=== PATIENT | female | born 1960 | race African-American/Black ===

== ENCOUNTER 2017-01-07 21:53 | Inpatient (IN) ==
[2017-01-07 23:12] LABS: Bilirubin,Urine Small (Negative); Blood,Urine Small (Negative); Clarity,Urine Cloudy (Clear); Color,Urine Dark Yellow (Yellow); Glucose,Urine (UA) Normal (Normal); Ketones,Urine Trace mg/dL (Negative); Leukocyte Esterase,Urine Large (Negative); Nitrite,Urine Negative (Negative); PH,Urine 5.5 pH Units (5.0-8.0); Protein,Urine Trace mg/dL (Neg-Trace); Specific Gravity,Urine > 1.030 (1.010-1.025); Urobilinogen,Urine Normal (Normal)
[2017-01-07 23:14] LABS: Bacteria,Urine Many per hpf (None-Few); Hyaline Casts,Urine Moderate per lpf (None-Few); RBC,Urine 15-30 per hpf (0-3); Squamous Epithelial Cell,Urine Many per lpf (None-Few); WBC,Urine 30-50 per hpf (0-3)
[2017-01-07 23:17] LABS: Amphetamine Screen,Urine Negative ng/mL (Cutoff=1000); Barbiturate Screen,Urine Negative ng/mL (Cutoff=200); Benzodiazepines Screen,Urine Positive ng/mL (Cutoff=200); Cannabinoid Screen,Urine Negative ng/mL (Cutoff = 50); Cocaine Screen,Urine Negative ng/mL (Cutoff= 300); Opiate Screen,Urine Negative ng/mL (Cutoff=300); Phencyclidine Screen,Urine Negative ng/mL (Cutoff=25)
[2017-01-07 23:58] LABS: Basophils % 0.3 %; Eosinophils % 0.2 %; Hematocrit 41.4 % (35.3-44.9); Hemoglobin 13.5 g/dL (11.5-15.4); Immature Granulocytes % 0.5 % (0-4); Lymphocytes # 4.1 K/mcL (0.6-4.6); Lymphocytes % 34.2 %; Mean Corpuscular HGB Conc 32.6 g/dL (31.6-35.5); Mean Corpuscular Hemoglobin 30.2 pg (28.0-33.3); Mean Corpuscular Volume 92.6 fL (83.0-100.0); Mean Platelet Volume 10.6 fL (9.4-12.4); Monocytes # 0.8 K/mcL (0.0-1.3); Monocytes % 6.9 %; Platelet Count 250 K/mcL (140-400); Red Blood Count 4.47 M/mcL (3.82-4.97); Red Cell Distribution Width 13.4 % (11.5-14.5); Segmented Neutrophils % 57.9 %
[2017-01-08] LABS: BUN/Creatinine Ratio 14 (6-26); Blood Urea Nitrogen 14 mg/dL (7-20); Carbon Dioxide 21 mEq/L (19-29); Chloride 107 mEq/L (98-109); Glucose 108 mg/dL (70-99); Osmolality,Calculated 289 (280-300); Potassium 3.4 mEq/L (3.5-4.5); Sodium 139 mEq/L (136-145); eGFR For African Americans > 60 (> 60); eGFR For Non-African Americans 56 (> 60)
[2017-01-08 00:48] LABS: Acetaminophen < 1.0 mcg/mL (10-30); Ethanol < 10 mg/dL (0-10); Salicylate < 5.0 mg/dL (15-30)
--- NOTE | 2017-01-08 01:27 | Emergency Department Note ---
Disposition Clinical Impression: Chronic schizophrenia, Suicidal ideation Disposition: Admitted As Inpatient Condition: Good Time of Disposition: 07:45 Psych HPI - General Chief Complaint: ED Psychiatric Symptoms Stated Complaint: Suicidal Ideation Time Seen by Provider: 01/07/17 21:56 Source: patient Nursing Notes Reviewed: Yes Vital Signs Reviewed: Yes - History of Present Illness HPI Narrative: 56-year-old female presents from [facility] with reported suicidal ideation. Patient states that she is here because she has had thoughts of hurting herself, stating that she has been having them for a "long time" she does state that she has a plan, she tried to hurt herself before. States that she has not been taking her medications. Pt complaint: suicidal ideation Onset (ago): day(s) Duration: constant History of similar episodes: Yes Improves with: none Worsens with: none Context: not taking psychiatric medications Alleged intoxication: No Associated Psychiatric Symptoms: depression, suicidal ideation Associated symptoms: Reports: denies other symptoms Traumatic symptoms: denies traumatic injury Treatments prior to arrival: other ([facility]) Self harm or harm to others: admits thoughts of self harm, has plan, has acted on plan - Related Data Home Medications Medication Instructions Recorded Confirmed ALPRAZolam [Xanax 1 MG Tablet] 1 mg PO TID 09/05/16 09/05/16 Aspirin [Lo-Dose Aspirin EC] 81 mg PO DAILY 09/05/16 09/05/16 Atorvastatin [Lipitor] 40 mg PO HS 09/05/16 09/05/16 Benzonatate [Tessalon] 200 mg PO TID PRN 09/05/16 09/05/16 Benztropine [Cogentin] 1 mg PO TID PRN 09/05/16 09/05/16 Citalopram [CeleXA] 40 mg PO DAILY 09/05/16 09/05/16 Docusate Sodium [Colace] 100 mg PO BID 09/05/16 09/05/16 Fluticasone Propionate Nasal 2 spray NS DAILY 09/05/16 09/05/16 Furosemide [Lasix] 20 mg PO TID 09/05/16 09/05/16 Ibuprofen [Motrin] 800 mg PO Q8HR PRN 09/05/16 09/05/16 Latanoprost [Xalatan] 1 drop OP HS 09/05/16 09/05/16 Lisinopril [Zestril] 10 mg PO DAILY 09/05/16 09/05/16 Lurasidone [Latuda] 20 mg PO QPM 09/05/16 09/05/16 Polyethylene Glycol 3350 [MiraLAX] 17 gm PO DAILY PRN 09/05/16 09/05/16 RisperiDONE MICROSPHERES 50 mg IM Q2W 09/05/16 09/05/16 [Risperdal Consta] Ropinirole HCl [Requip] 2 mg PO DAILY 09/05/16 09/05/16 SitaGLIPtin [Januvia] 100 mg PO DAILY 09/05/16 09/05/16 Zolpidem [Ambien] 10 mg PO HS 09/05/16 09/05/16 metFORMIN [Glucophage] 1,000 mg PO BIDWM 09/05/16 09/05/16 risperiDONE [RisperDAL] 2 mg PO BID 09/05/16 09/05/16 Previous Rx's Medication Instructions Recorded Benzonatate [Tessalon] 100 mg PO TID #30 capsule 10/21/16 Montelukast [Singulair] 10 mg PO DAILY #20 tablet 10/21/16 Nitrofurantoin (BID) [Macrobid] 100 mg PO BID #10 capsule 10/21/16 Phenazopyridine HCl [Pyridium] 200 mg PO TIDAC #6 tab 10/21/16 Allergies Allergy/AdvReac Type Severity Reaction Status Date / Time No Known Allergies Allergy Verified 09/04/16 23:27 All systems ED: reviewed and negative except as stated. Constitutional: Denies: fever, chills Eyes: Denies: eye pain ENT ED: Denies: ear pain Cardiovascular: Denies: chest pain Respiratory: Denies: dyspnea Gastrointestinal: Denies: abdominal pain Genitourinary: Denies: dysuria Musculoskeletal: Denies: back pain Integumentary: Denies: rash Neurological: Denies: headache Psychiatric: Denies: depression Endocrine: Denies: fatigue Hematological/Lymphatic: Denies: easy bleeding Allergic/Immunologic: Denies: facial swelling Past Medical History - Past Medical History Medical history: Reports: asthma, diabetes, other Psychiatric history: Reports: anxiety, bipolar, depression, prior suicide attempt, schizophrenia, previous psychiatric hospitalization [facility] history: Reports: no [facility] history - Social History Smoking Status: Never smoker Smokeless Tobacco Status: No Alcohol use: Reports: none Drug use: Reports: none Physical Exam - General Limitations: no limitations General appearance: alert, anxious - Head Head exam: normocephalic - Eye Eye exam: Present: EOMI. Absent: conjunctival injection - ENT ENT exam: normal oropharynx, mucous membranes moist - Neck Neck exam: Present: full ROM - Chest Chest inspection: Present: symmetric chest wall rise - Respiratory Respiratory exam: Absent: respiratory distress - Cardiovascular Cardiovascular exam: Present: regular rate - Abdominal Exam Abdominal exam: Present: soft, Non-Tender - Extremities Exam Extremities exam: Present: full ROM, normal capillary refill - Back Exam Back exam: Present: normal inspection, full ROM - Neurological Exam Neurological exam: Present: alert - Expanded Neurological Exam Patient oriented to: Present: person, place. Absent: time (Patient declines to answer my question regarding what day of the week it is) Speech: Present: fluid speech - Psychiatric Psychiatric exam: Present: normal affect, normal mood - Skin Skin exam: Present: warm, dry, intact, normal color. Absent: rash, cyanosis, diaphoresis Course Course Narrative: 56-year-old female presents with reported suicidal ideation. Patient seen and examined. She is alert and oriented to self and location. she states noncompliance with her medications. She mentions a long history of suicidal ideation. She admits to attempting to hurt herself recently, but declines to tell me specifics on that. Nursing reports that the patient had tried to strangle herself with her purse. Workup initiated for medical clearance for psychiatric evaluation. Vital Signs Temperature 98.4 F 01/07/17 22:14 Pulse Rate 97 01/07/17 22:14 Respiratory Rate 15 01/07/17 22:14 Blood Pressure 115/97 01/07/17 22:14 O2 Sat by Pulse Oximetry 97 01/07/17 22:14 Temperature 98.4 F 01/07/17 22:14 Pulse Rate 97 01/07/17 22:14 Respiratory Rate 0 01/08/17 03:44 Blood Pressure 0/0 01/08/17 03:44 O2 Sat by Pulse Oximetry 97 01/07/17 22:14 Oxygen Delivery Oxygen Delivery Room Air Psych - MDM Narrative Medical decision making narrative: Patient was medically cleared, then evaluated by behavioral health staff. Patient will be admitted for inpatient treatment, evaluation, stabilization for psychiatric issues. Patient's vitals stable during her course here. Patient is safe for transfer to inpatient care. - Lab Data Result diagrams: 01/07/17 23:39 01/07/17 23:39 Lab Results 01/07/17 01/07/17 01/07/17 Range/Units 23:00 23:00 23:00 WBC (4.3-11.1) K/mcL RBC (3.82-4.97) M/mcL Hgb (11.5-15.4) g/dL Hct (35.3-44.9) % MCV (83.0-100.0) fL MCH (28.0-33.3) pg MCHC (31.6-35.5) g/dL RDW (11.5-14.5) % Plt Count (140-400) K/mcL MPV (9.4-12.4) fL Immature Gran % (0-4) % Seg Neutrophils % % Lymphocytes % % Monocytes % % Eosinophils % % Basophils % % Neutrophils # (1.6-8.9) K/mcL Lymphocytes # (0.6-4.6) K/mcL Monocytes # (0.0-1.3) K/mcL Eosinophils # (0.0-0.6) K/mcL Basophils # (0.0-0.2) K/mcL Sodium (136-145) mEq/L Potassium (3.5-4.5) mEq/L Chloride (98-109) mEq/L Carbon Dioxide (19-29) mEq/L BUN (7-20) mg/dL Creatinine (0.57-1.11) mg/dL Est GFR ( Amer) (> 60) Est GFR (Non-Af Amer) (> 60) BUN/Creatinine Ratio (6-26) Glucose (70-99) mg/dL Calculated Osmolality (280-300) Calcium (8.6-10.8) mg/dL Urine Color Dark Yellow (Yellow) Urine Clarity Cloudy A (Clear) Urine pH 5.5 (5.0-8.0) pH Units Ur Specific [place] > 1.030 H (1.010-1.025) Urine Protein Trace (Neg-Trace) mg/dL Urine Glucose (UA) Normal (Normal) mg/dL Urine Ketones Trace H (Negative) mg/dL Urine Blood Small H (Negative) Urine Nitrite Negative (Negative) Urine Bilirubin Small H (Negative) Urine Urobilinogen Normal (Normal) mg/dL Ur Leukocyte Esterase Large H (Negative) Urine Microscopic RBC 15-30 H (0-3) per hpf Urine Microscopic WBC 30-50 H (0-3) per hpf Ur Squamous Epith Cells Many H (None-Few) per lpf Urine Bacteria Many H (None-Few) per hpf Hyaline Casts Moderate H (None-Few) per lpf Urine Test Negative (Negative) Salicylates (15-30) mg/dL Urine Opiates Screen Negative (Nrfdga=425) ng/mL Acetaminophen (10-30) mcg/mL Ur Barbiturates Screen Negative (Rlomey=246) ng/mL Ur Phencyclidine Scrn Negative (Cutoff=25) ng/mL Ur Amphetamines Screen Negative (Zzwavn=7127) ng/mL U Benzodiazepines Scrn Positive H (Tlrrvo=765) ng/mL Urine Cocaine Screen Negative (Cutoff= 300) ng/mL U Marijuana (THC) Screen Negative (Cutoff = 50) ng/mL Ethyl Alcohol (0-10) mg/dL 01/07/17 01/07/17 Range/Units 23:39 23:39 WBC 12.1 H (4.3-11.1) K/mcL RBC 4.47 (3.82-4.97) M/mcL Hgb 13.5 (11.5-15.4) g/dL Hct 41.4 (35.3-44.9) % MCV 92.6 (83.0-100.0) fL MCH 30.2 (28.0-33.3) pg MCHC 32.6 (31.6-35.5) g/dL RDW 13.4 (11.5-14.5) % Plt Count 250 (140-400) K/mcL MPV 10.6 (9.4-12.4) fL Immature Gran % 0.5 (0-4) % Seg Neutrophils % 57.9 % Lymphocytes % 34.2 % Monocytes % 6.9 % Eosinophils % 0.2 % Basophils % 0.3 % Neutrophils # 7.0 (1.6-8.9) K/mcL Lymphocytes # 4.1 (0.6-4.6) K/mcL Monocytes # 0.8 (0.0-1.3) K/mcL Eosinophils # 0.0 (0.0-0.6) K/mcL Basophils # 0.0 (0.0-0.2) K/mcL Sodium 139 (136-145) mEq/L Potassium 3.4 L (3.5-4.5) mEq/L Chloride 107 (98-109) mEq/L Carbon Dioxide 21 (19-29) mEq/L BUN 14 (7-20) mg/dL Creatinine 1.02 (0.57-1.11) mg/dL Est GFR ( Amer) > 60 (> 60) Est GFR (Non-Af Amer) 56 L (> 60) BUN/Creatinine Ratio 14 (6-26) Glucose 108 H (70-99) mg/dL Calculated Osmolality 289 (280-300) Calcium 9.0 (8.6-10.8) mg/dL Urine Color (Yellow) Urine Clarity (Clear) Urine pH (5.0-8.0) pH Units Ur Specific [place] (1.010-1.025) Urine Protein (Neg-Trace) mg/dL Urine Glucose (UA) (Normal) mg/dL Urine Ketones (Negative) mg/dL Urine Blood (Negative) Urine Nitrite (Negative) Urine Bilirubin (Negative) Urine Urobilinogen (Normal) mg/dL Ur Leukocyte Esterase (Negative) Urine Microscopic RBC (0-3) per hpf Urine Microscopic WBC (0-3) per hpf Ur Squamous Epith Cells (None-Few) per lpf Urine Bacteria (None-Few) per hpf Hyaline Casts (None-Few) per lpf Urine Test (Negative) Salicylates < 5.0 L (15-30) mg/dL Urine Opiates Screen (Gxczjg=939) ng/mL Acetaminophen < 1.0 L (10-30) mcg/mL Ur Barbiturates Screen (Lmmgcd=675) ng/mL Ur Phencyclidine Scrn (Cutoff=25) ng/mL Ur Amphetamines Screen (Vfvemt=4256) ng/mL U Benzodiazepines Scrn (Iajpuo=976) ng/mL Urine Cocaine Screen (Cutoff= 300) ng/mL U Marijuana (THC) Screen (Cutoff = 50) ng/mL Ethyl Alcohol < 10 (0-10) mg/dL Psychiatric Medical Clearance - Medical Clearance Checklist Medical History: No Social History Section defined Current Vitals: Last Vital Signs Temp 98.4 F 01/07/17 22:14 Pulse 97 01/07/17 22:14 Resp 0 01/08/17 03:44 BP 0/0 01/08/17 03:44 Pulse Ox 97 01/07/17 22:14 Psychiatric Lab Panel: Drug Levels and Toxicity 01/07/17 01/07/17 23:00 23:39 Urine Opiates Screen Negative Acetaminophen < 1.0 L Ur Barbiturates Screen Negative Ur Phencyclidine Scrn Negative Ur Amphetamines Screen Negative U Benzodiazepines Scrn Positive H Urine Cocaine Screen Negative U Marijuana (THC) Screen Negative Ethyl Alcohol < 10 Abnormal Labs: Abnormal lab results WBC 12.1 K/mcL (4.3-11.1) H 01/07/17 23:39 Potassium 3.4 mEq/L (3.5-4.5) L 01/07/17 23:39 Est GFR (Non-Af Amer) 56 (> 60) L 01/07/17 23:39 Glucose 108 mg/dL (70-99) H 01/07/17 23:39 POC Glucose 129 (58-89) H 01/08/17 03:54 Urine Clarity Cloudy (Clear) A 01/07/17 23:00 Ur Specific [place] > 1.030 (1.010-1.025) H 01/07/17 23:00 Urine Ketones Trace mg/dL (Negative) H 01/07/17 23:00 Urine Blood Small (Negative) H 01/07/17 23:00 Urine Bilirubin Small (Negative) H 01/07/17 23:00 Ur Leukocyte Esterase Large (Negative) H 01/07/17 23:00 Urine Microscopic RBC 15-30 per hpf (0-3) H 01/07/17 23:00 Urine Microscopic WBC 30-50 per hpf (0-3) H 01/07/17 23:00 Ur Squamous Epith Cells Many per lpf (None-Few) H 01/07/17 23:00 Urine Bacteria Many per hpf (None-Few) H 01/07/17 23:00 Hyaline Casts Moderate per lpf (None-Few) H 01/07/17 23:00 Salicylates < 5.0 mg/dL (15-30) L 01/07/17 23:39 Acetaminophen < 1.0 mcg/mL (10-30) L 01/07/17 23:39 U Benzodiazepines Scrn Positive ng/mL (Hqnwhh=077) H 01/07/17 23:00 Statement of Medical Clearance: I have evaluated the patient, reviewed diagnostic information, and certify that the patient's medical condition is sufficiently stable that transfer to the psychiatric unit does not pose a significant risk of deterioration.
[2017-01-08] MEDS ORDERED: hydrOXYzine pamoate 25 MG CAPSULE PO PRN (04:32)
[2017-01-08] MEDS ORDERED: Mag Hydrox/Al Hydrox/Simeth 30 ML UDC PO PRN (04:32)
[2017-01-08] MEDS ORDERED: Haloperidol Lactate 5 MG/ML VIAL IM PRN (04:32)
[2017-01-08] MEDS ORDERED: MOM Conc 10 ML UD.LIQ PO PRN (04:32)
[2017-01-08] MEDS ORDERED: *HR* LORazepam 2 MG/ML VIAL IM PRN (04:32)
[2017-01-08] MEDS ORDERED: Acetaminophen 325 MG TABLET PO PRN (04:32)
[2017-01-08] MEDS ORDERED: *HR* LORazepam 1 MG TABLET PO PRN (04:32)
--- NOTE | 2017-01-08 10:21 | Psychiatry History & Physical ---
Date of Encounter: 01/08/17 Time of Encounter: 10:00 History of Present Illness Patient Stated Chief Complaint: Suicidal Medicare Admission Attestation: For traditional Medicare patients the provided hospital inpatient services are reasonable and necessary and in the case of services not specified as inpatient -only under 42 CFR 419.22 (n), that they are appropriately provided as inpatient services in accordance 42 CFR 412.3. For Critical Access Hospital the patient may reasonably be expected to be discharged or transferred to a hospital within 96 hours after admission to the Critical Access Hospital. Admitted From: Emergency Dept History of Present Illness: Ms. Cano is a 56 year old female admitted from the emergency department for suicidal ideation and noncompliance with medication. Patient had long history of treatment for bipolar and schizoaffective disorder and was followed at [facility]. Patient did not take her medication for the last couple of months, she was suspicious and paranoid, she was depressed and had thoughts of suicide but she really did not explain her plan. Patient had previously attempted hospitalization and her tox screen in the ED was positive for benzodiazepine. Past Med Surg Social Fam HX - Past Medical History Medical history: asthma, diabetes, other - Past Psychiatric History Psychiatric history: Reports: bipolar, schizophrenia, previous psychiatric hospitalization - Social History Smoking Status: Never smoker Smokeless Tobacco Status: No Alcohol use: none Drug use: none - Family History Mother Hx Family Medical Disorders: No Medications & Allergies Aspirin [Lo-Dose Aspirin EC] 81 mg PO DAILY 09/05/16 [History] Atorvastatin [Lipitor] 40 mg PO HS 09/05/16 [History] Benztropine [Cogentin] 1 mg PO TID PRN 09/05/16 [History] Citalopram [CeleXA] 10 mg PO DAILY 09/05/16 [History] Docusate Sodium [Colace] 100 mg PO BID 09/05/16 [History] Fluticasone Propionate Nasal [Flonase] 2 spray NS DAILY 09/05/16 [History] Furosemide [Lasix] 20 mg PO TID 09/05/16 [History] Ibuprofen [Motrin] 800 mg PO Q8HR PRN 09/05/16 [History] Latanoprost [Xalatan] 1 drop OP HS 09/05/16 [History] Lisinopril [Zestril] 10 mg PO DAILY 09/05/16 [History] Lurasidone [Latuda] 20 mg PO QPM 09/05/16 [History] Polyethylene Glycol 3350 [MiraLAX] 17 gm PO DAILY PRN 09/05/16 [History] RisperiDONE MICROSPHERES [Risperdal Consta] 50 mg IM Q2W 09/05/16 [History] Ropinirole HCl [Requip] 2 mg PO DAILY 09/05/16 [History] SitaGLIPtin [Januvia] 100 mg PO DAILY 09/05/16 [History] Zolpidem [Ambien] 10 mg PO HS 09/05/16 [History] metFORMIN [Glucophage] 1,000 mg PO BIDWM 09/05/16 [History] risperiDONE [RisperDAL] 2 mg PO BID 09/05/16 [History] Montelukast [Singulair] 10 mg PO DAILY #20 tablet 10/21/16 [Rx] Ondansetron HCl [Zofran] 8 mg PO DAILY PRN 01/08/17 [History] clonazePAM [Klonopin] 1 mg PO TID 01/08/17 [History] Allergies No Known Allergies Allergy (Verified 09/04/16 23:27) Review of Systems Psychiatric: Reports: depression, suicidal ideation, irritability, mood swings Mental Status Exam Patient orientation: Yes Person, Yes Time, Yes Place Level of alertness: Alert Patient appearance: Appropriate, Unkempt, Disheveled, Bizarre, Obese Behavior: calm, cooperative, anxious, guarded, suspicious, distractible Psychomotor activity: Normal Eye contact: Fleeting Contact Mood description: Depressed, Anxious, Labile, Irritable Affect description: labile, constricted Speech pattern: Slowed, Disorganized, Limited Speech volume: Normal Thought process: Circumstantial, Flight of Ideas, Thought Blocking, Disorganized Thought content: Yes Suicidal ideation, No Homicidal ideation, No Overt delusions Perceptual disturbances: No Auditory hallucinations, No Visual hallucinations Attention span: Capable of Focused Attention Memory description: Grossly Intact Patient reliability: Reliable Historian Intelligence estimate: Average Judgment: Limited Insight: Partial Results - Vital Signs Vital signs: Temp Pulse Resp BP Pulse Ox 98.8 F 96 18 122/71 97 01/08/17 09:00 01/08/17 09:00 01/08/17 09:00 01/08/17 09:00 01/07/17 22:14 - Labs Labs: Laboratory Last Values WBC 12.1 K/mcL (4.3-11.1) H 01/07/17 23:39 RBC 4.47 M/mcL (3.82-4.97) 01/07/17 23:39 Hgb 13.5 g/dL (11.5-15.4) 01/07/17 23:39 Hct 41.4 % (35.3-44.9) 01/07/17 23:39 MCV 92.6 fL (83.0-100.0) 01/07/17 23:39 MCH 30.2 pg (28.0-33.3) 01/07/17 23:39 MCHC 32.6 g/dL (31.6-35.5) 01/07/17 23:39 RDW 13.4 % (11.5-14.5) 01/07/17 23:39 Plt Count 250 K/mcL (140-400) 01/07/17 23:39 MPV 10.6 fL (9.4-12.4) 01/07/17 23:39 Immature Gran % 0.5 % (0-4) 01/07/17 23:39 Seg Neutrophils % 57.9 % 01/07/17 23:39 Lymphocytes % 34.2 % 01/07/17 23:39 Monocytes % 6.9 % 01/07/17 23:39 Eosinophils % 0.2 % 01/07/17 23:39 Basophils % 0.3 % 01/07/17 23:39 Neutrophils # 7.0 K/mcL (1.6-8.9) 01/07/17 23:39 Lymphocytes # 4.1 K/mcL (0.6-4.6) 01/07/17 23:39 Monocytes # 0.8 K/mcL (0.0-1.3) 01/07/17 23:39 Eosinophils # 0.0 K/mcL (0.0-0.6) 01/07/17 23:39 Basophils # 0.0 K/mcL (0.0-0.2) 01/07/17 23:39 Sodium 139 mEq/L (136-145) 01/07/17 23:39 Potassium 3.4 mEq/L (3.5-4.5) L 01/07/17 23:39 Chloride 107 mEq/L (98-109) 01/07/17 23:39 Carbon Dioxide 21 mEq/L (19-29) 01/07/17 23:39 BUN 14 mg/dL (7-20) 01/07/17 23:39 Creatinine 1.02 mg/dL (0.57-1.11) 01/07/17 23:39 Est GFR ( Amer) > 60 (> 60) 01/07/17 23:39 Est GFR (Non-Af Amer) 56 (> 60) L 01/07/17 23:39 BUN/Creatinine Ratio 14 (6-26) 01/07/17 23:39 Glucose 108 mg/dL (70-99) H 01/07/17 23:39 POC Glucose 129 (58-89) H 01/08/17 03:54 Calculated Osmolality 289 (280-300) 01/07/17 23:39 Calcium 9.0 mg/dL (8.6-10.8) 01/07/17 23:39 Urine Color Dark Yellow (Yellow) 01/07/17 23:00 Urine Clarity Cloudy (Clear) A 01/07/17 23:00 Urine pH 5.5 pH Units (5.0-8.0) 01/07/17 23:00 Ur Specific [place] > 1.030 (1.010-1.025) H 01/07/17 23:00 Urine Protein Trace mg/dL (Neg-Trace) 01/07/17 23:00 Urine Glucose (UA) Normal mg/dL (Normal) 01/07/17 23:00 Urine Ketones Trace mg/dL (Negative) H 01/07/17 23:00 Urine Blood Small (Negative) H 01/07/17 23:00 Urine Nitrite Negative (Negative) 01/07/17 23:00 Urine Bilirubin Small (Negative) H 01/07/17 23:00 Urine Urobilinogen Normal mg/dL (Normal) 01/07/17 23:00 Ur Leukocyte Esterase Large (Negative) H 01/07/17 23:00 Urine Microscopic RBC 15-30 per hpf (0-3) H 01/07/17 23:00 Urine Microscopic WBC 30-50 per hpf (0-3) H 01/07/17 23:00 Ur Squamous Epith Cells Many per lpf (None-Few) H 01/07/17 23:00 Urine Bacteria Many per hpf (None-Few) H 01/07/17 23:00 Hyaline Casts Moderate per lpf (None-Few) H 01/07/17 23:00 Urine Test Negative (Negative) 01/07/17 23:00 Salicylates < 5.0 mg/dL (15-30) L 01/07/17 23:39 Urine Opiates Screen Negative ng/mL (Utuwhe=176) 01/07/17 23:00 Acetaminophen < 1.0 mcg/mL (10-30) L 01/07/17 23:39 Ur Barbiturates Screen Negative ng/mL (Wpqrpg=763) 01/07/17 23:00 Ur Phencyclidine Scrn Negative ng/mL (Cutoff=25) 01/07/17 23:00 Ur Amphetamines Screen Negative ng/mL (Edxqek=2657) 01/07/17 23:00 U Benzodiazepines Scrn Positive ng/mL (Qlypcj=765) H 01/07/17 23:00 Urine Cocaine Screen Negative ng/mL (Cutoff= 300) 01/07/17 23:00 U Marijuana (THC) Screen Negative ng/mL (Cutoff = 50) 01/07/17 23:00 Ethyl Alcohol < 10 mg/dL (0-10) 01/07/17 23:39 Assessment and Plan (1) Chronic schizophrenia Current visit: Yes Status: Acute Plan: Admit inpatient for safety and stabilization, Close observation, Suicide Precautions per unit protocol, Encourage participation in unit milieu, Group Therapy, Monitor sleep, Monitor appetite Additional Plan: Will review patient medication and restart them and request records from [facility]. Risks, benefits, side effects, alternatives discussed w/pt: Yes Patient agreeable to treatment: Yes
[2017-01-08] MEDS: *HR* SitaGLIPtin 100 MG TABLET PO SCH (14:31)
[2017-01-08] MEDS: Furosemide 20 MG TABLET PO SCH (14:31)
[2017-01-08] MEDS: Aspirin Enteric Coated 81 MG Tablet PO SCH (14:31)
[2017-01-08] MEDS: *HR* Metformin 500 MG TABLET PO SCH (17:24)
[2017-01-08] MEDS: traZODone 50 MG TABLET PO PRN (21:34)
[2017-01-08] MEDS: rOPINIRole 1 MG TABLET PO SCH (21:34)
[2017-01-08] MEDS: Latanoprost 2.5 ML BOTTLE BOTH EYES SCH (21:57)
[2017-01-09] MEDS: Furosemide 20 MG TABLET PO SCH (09:47)
[2017-01-09] MEDS: Aspirin Enteric Coated 81 MG Tablet PO SCH (09:47)
[2017-01-09] MEDS: *HR* Metformin 500 MG TABLET PO SCH ×2 (09:47→18:01)
[2017-01-09] MEDS: *HR* SitaGLIPtin 100 MG TABLET PO SCH ×2 (09:50→10:16)
--- NOTE | 2017-01-09 15:45 | Psychiatry Progress Note ---
Date of Encounter: 01/09/17 Time of Encounter: 15:30 Subjective Interval history: Patient is here for follow-up. She is reported more cooperative and compliant with medication, she is less delusional but continued to have disorganized speech and paranoid statements. We added inVega 6 mg oral tablets daily and she is responsive and responding positively. Medical consult was requested to address complaint off dysuria possible UTI. Review of Systems Psychiatric: Reports: depression, suicidal ideation, irritability, mood swings Objective: Exam Patient orientation: Yes Person, Yes Time, Yes Place Level of alertness: Alert Patient appearance: Appropriate, Well Groomed, Obese Behavior: calm, cooperative, suspicious Psychomotor activity: Normal Eye contact: Maintains Eye Contact Mood description: Anxious, Labile Affect description: congruent with mood, labile Speech pattern: Delayed, Disorganized Speech volume: Normal Thought process: Circumstantial, Flight of Ideas, Thought Blocking Thought content: No Suicidal ideation, No Homicidal ideation, No Overt delusions , Yes Paranoid delusion, Yes Somatic delusion Perceptual disturbances: No Auditory hallucinations, No Visual hallucinations Judgment: Fair Insight: Partial Results - Vital Signs Vital Signs: Temp Pulse Resp BP Pulse Ox 97.9 F 88 18 133/85 97 01/09/17 09:00 01/09/17 09:00 01/09/17 09:00 01/09/17 09:00 01/07/17 22:14 - Labs Labs: Laboratory Results - last 24 hr 01/08/17 16:46 POC Glucose 136 H Assessment and Plan (1) Chronic schizophrenia Current visit: Yes Status: Acute Plan: Continue hospitalization, Close observation, Suicide Precautions per unit protocol, Encourage participation in unit milieu, Group Therapy, Monitor sleep, Monitor appetite Risks, benefits, side effects, alternatives discussed w/pt: Yes Patient agreeable to treatment: Yes Consult Discharge Plan - Plan Referrals: [facility] [Outside] - 02/02/17 6:00 pm (You are returning into respite at [facility] on discharge from the hospital. While there you will be seen daily by the clinic counselors and telehealth case manager, sola Mccann, your embedded case manager. You will also see Dr. casas on 02/02/2017 at 6:00pm.)
--- NOTE | 2017-01-09 16:36 | Internal Medicine Consult Note ---
Date of Encounter: 01/09/17 Time of Encounter: 16:33 - Assessment and Plan (1) UTI (urinary tract infection) Current Visit: Yes Status: Acute Assessment and plan: *Ciprofloxacin oral 500 mg twice a day Send urine culture May change antibiotic therapy depending on culture results/sensitivity Thank you for allowing me to participate in the care of this patient please call with any questions Time spent on this consult 40 minutes Qualifiers: Urinary tract infection type: acute cystitis Hematuria presence: with hematuria Qualified Code(s): N30.01 - Acute cystitis with hematuria (2) Diarrhea Current Visit: Yes Status: Acute Assessment and plan: Unclear etiology Possible acute gastroenteritis viral versus bacterial Send a stool cultures, C. difficile (may need to start Flagyl. Positive for C. difficile) Send the GI panel Qualifiers: Diarrhea type: unspecified type Qualified Code(s): R19.7 - Diarrhea, unspecified (3) Hypokalemia Current Visit: Yes Status: Acute Assessment and plan: Replete as needed and recheck in the morning (4) Leukocytosis Current Visit: Yes Status: Acute Qualifiers: Leukocytosis type: unspecified Qualified Code(s): D72.829 - Elevated white blood cell count, unspecified (5) Diabetes Current Visit: Yes Status: Acute Assessment and plan: Continue metformin, Januvia Qualifiers: Diabetes mellitus type: type 2 Diabetes mellitus complication status: without complication 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 Cano is a 56 year old female with a past medical history of schizoaffective disorder, bipolar disorder, asthma, diabetes type 2, hyperlipidemia, hypertension who was admitted to the psychiatry unit for suicidal ideation and noncompliance with her medications. The patient has been complaining of dysuria and diarrhea for about a week. Upon admission, a urinalysis showed 15-30 red blood cells, 30-50 white blood cells and many bacteria. White blood cell count is 12.1 potassium 3.4 urine tox screen was positive for benzodiazepines. Patient denies any back pain but has been complaining of watery diarrhea on and off. Since yesterday she has had for episodes of loose stools. Continues to have dysuria. Denies any fevers but has been complaining of chills. Past Med Surg Social Fam HX - Past Medical History Medical history: asthma, diabetes (Not insulin-dependent), hyperlipidemia, hypertension, other Psychiatric history: bipolar, schizophrenia, previous psychiatric hospitalization (Schizoaffective disorder) - Past Surgical History Surgical History: cholecystectomy, herniorrhaphy, other (Echocardiogram showed an ejection fraction of 60% on 02/21/2016) - Social History Smoking Status: Never smoker Smokeless Tobacco Status: No Alcohol use: none Drug use: none - Family History Mother Hx Family Medical Disorders: No - Additional Family History Additional family history: Father mother and siblings with diabetes Review of systems: Continues to have diarrhea without abdominal pain, dysuria. Other systems out of the 10 reviewed were negative Internal Medicine - CN: Meds Aspirin [Lo-Dose Aspirin EC] 81 mg PO DAILY 09/05/16 [History] Atorvastatin [Lipitor] 40 mg PO HS 09/05/16 [History] Citalopram [CeleXA] 10 mg PO DAILY 09/05/16 [History] Docusate Sodium [Colace] 100 mg PO DAILY PRN 09/05/16 [History] Furosemide [Lasix] 20 mg PO DAILY 09/05/16 [History] Latanoprost [Xalatan] 1 drop BOTH EYES HS 09/05/16 [History] Lisinopril [Zestril] 10 mg PO DAILY 09/05/16 [History] Ropinirole HCl [Requip] 2 mg PO HS 09/05/16 [History] SitaGLIPtin [Januvia] 100 mg PO DAILY 09/05/16 [History] metFORMIN [Glucophage] 1,000 mg PO BIDWM 09/05/16 [History] Invega Sustenna 156 mg IM Q4W 01/08/17 [History] Allergies No Known Allergies Allergy (Verified 09/04/16 23:27) Internal Medicine - CN: Exam - Constitutional Vitals: Temp Pulse Resp BP Pulse Ox 97.9 F 88 18 133/85 97 01/09/17 09:00 01/09/17 09:00 01/09/17 09:00 01/09/17 09:00 01/07/17 22:14 General appearance IM: Present: A&O X 3, obese - Expanded Head Exam Head exam expanded IM: Absent: contusion, general tenderness - Eye Eye exam: Present: EOMI, normal appearance. Absent: nystagmus Pupils: Present: normal accommodation, PERRL. Absent: irregular, miosis - ENT ENT exam: Present: mucous membranes moist, normal exam - Neck Neck exam general surgery: Present: full ROM, normal inspection. Absent: lymphadenopathy - Respiratory Respiratory exam: Present: decreased breath sounds. Absent: accessory muscle use, chest wall tenderness, wheezes, tachypnea - Cardiovascular Cardiovascular exam IM: Present: +S1, +S2. Absent: bradycardia, irregular rhythm, systolic murmur, tachycardia - GI/Abdominal GI/Abdominal exam IM: Present: distended, soft. Absent: guarding, hernia, hepatomegaly, tenderness, no peritoneal signs - Expanded Exam Female exam: Present: deferred - Extremities Exam Extremities exam IM: Present: full ROM, normal inspection. Absent: calf tenderness, joint swelling - Neurological Exam Neurological exam: Present: CN II-XII intact, normal gait, reflexes normal, no focal deficits. Absent: abnormal gait - Psychiatric Psychiatric exam: Present: depressed - Skin Skin exam IM: Present: normal color. Absent: excoriation Internal Medicine - CN: Reslt - Labs CBC & Chem 7: 01/07/17 23:39 01/07/17 23:39 Consult Discharge Plan - Plan Referrals: [facility] [Outside] - 02/02/17 6:00 pm (You are returning into respite at [facility] on discharge from the hospital. While there you will be seen daily by the clinic counselors and lining caser, sola Mccann, your lining caser. You will also see Dr. casas on 02/02/2017 at 6:00pm.)
[2017-01-09] MEDS: traZODone 50 MG TABLET PO PRN (20:47)
[2017-01-09] MEDS: rOPINIRole 1 MG TABLET PO SCH (20:47)
[2017-01-09] MEDS: Latanoprost 2.5 ML BOTTLE BOTH EYES SCH (20:49)
[2017-01-10 05:51] LABS: Hematocrit 40.7 % (35.3-44.9); Hemoglobin 13.2 g/dL (11.5-15.4); Mean Corpuscular HGB Conc 32.4 g/dL (31.6-35.5); Mean Corpuscular Hemoglobin 29.5 pg (28.0-33.3); Mean Corpuscular Volume 91.1 fL (83.0-100.0); Mean Platelet Volume 10.2 fL (9.4-12.4); Platelet Count 238 K/mcL (140-400); Red Blood Count 4.47 M/mcL (3.82-4.97); Red Cell Distribution Width 13.5 % (11.5-14.5)
[2017-01-10 06:02] LABS: BUN/Creatinine Ratio 8 (6-26); Blood Urea Nitrogen 7 mg/dL (7-20); Calcium 8.9 mg/dL (8.6-10.8); Carbon Dioxide 24 mEq/L (19-29); Chloride 106 mEq/L (98-109); Glucose 121 mg/dL (70-99); Osmolality,Calculated 287 (280-300); Potassium 3.4 mEq/L (3.5-4.5); Sodium 139 mEq/L (136-145); eGFR For African Americans > 60 (> 60); eGFR For Non-African Americans > 60 (> 60)
[2017-01-10] MEDS: *HR* Metformin 500 MG TABLET PO SCH (08:44)
[2017-01-10] MEDS: *HR* SitaGLIPtin 100 MG TABLET PO SCH (08:44)
[2017-01-10] MEDS: Aspirin Enteric Coated 81 MG Tablet PO SCH (08:45)
[2017-01-10] MEDS: Furosemide 20 MG TABLET PO SCH (08:45)
[2017-01-10] MEDS: Insulin LISPRO 300 UNITS/3 ML VIAL SQ SCH ×2 (11:36→17:31)
--- NOTE | 2017-01-10 12:35 | Internal Med Progress Note ---
Date of Encounter: 01/10/17 Time of Encounter: 12:33 - Assessment and plan (1) Suicidal ideation Current Visit: Yes Status: Acute Assessment and plan: Patient is being managed in psych floor. (2) UTI (urinary tract infection) Current Visit: Yes Status: Acute Assessment and plan: Ciprofloxacin Qualifiers: Urinary tract infection type: acute cystitis Hematuria presence: with hematuria Qualified Code(s): N30.01 - Acute cystitis with hematuria (3) Diabetes Current Visit: Yes Status: Acute Assessment and plan: I would hold metformin for now to see if diarrhea improves. 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 Stool studies will be checked. Hold metformin and check response Qualifiers: Diarrhea type: unspecified type Qualified Code(s): R19.7 - Diarrhea, unspecified - Subjective Interval history: Patient seen and examined. Has chronic diarrhea for the past couple of months. No blood or mucus in stools. No abdominal pain. No fevers chills. She is on metformin for 20 years no increase in dose. No nausea or vomiting. - Constitutional Vitals: Temp Pulse Resp BP Pulse Ox 98.5 F 101 18 130/85 97 01/10/17 08:39 01/10/17 08:39 01/10/17 08:39 01/10/17 08:39 01/07/17 22:14 General appearance: Present: A&O X 3, obese Exam: Gen.: patient is alert oriented times 3 not in distress. Cardiac: normal S1 S2 no additional sounds or murmurs chest: fair air entry. no active wheezing. No crackles or bronchial breathing. abdomen: soft nontender nondistended normal bowel sounds neuro: no focal deficit Internal Medicine: Result - Labs CBC & Chem 7: 01/10/17 05:41 01/10/17 05:41 Labs: Short CBC 01/10/17 Range/Units 05:41 WBC 9.2 (4.3-11.1) K/mcL Hgb 13.2 (11.5-15.4) g/dL Hct 40.7 (35.3-44.9) % Plt Count 238 (140-400) K/mcL BMP 01/10/17 05:41 Sodium 139 Potassium 3.4 L Chloride 106 Carbon Dioxide 24 BUN 7 Creatinine 0.85 Glucose 121 H Calcium 8.9 - VTE Reasons for not Prescribing Prophylaxis: Treatment not Indicated - Low risk for VTE Consult Discharge Plan - Plan Referrals: [facility] [Outside] - 02/02/17 6:00 pm (You are returning into respite at [facility] on discharge from the hospital. While there you will be seen daily by the clinic counselors and nurse outreach case manager, sola Mccann, your transplant case manager. You will also see Dr. casas on 02/02/2017 at 6:00pm.)
--- NOTE | 2017-01-10 14:38 | Psychiatry Progress Note ---
Date of Encounter: 01/10/17 Time of Encounter: 10:00 Subjective Interval history: Patient is seen today for follow-up of her chronic schizophrenia. She denies side effects of the Invega. She reports she is sleeping better. She reports that she is not hearing voices as much. Patient's speech is slowed but she is able to verbalize needs and question this provider about discharge plans. However, she remains withdrawn to her room and interacts only minimally with peers and staff. She denies suicidal ideations. Her thought process is concrete and occasionally disorganized. Review of Systems Psychiatric: Reports: depression, suicidal ideation, auditory hallucinations, irritability, mood swings Objective: Exam Patient orientation: Yes Person, No Time, Yes Place, Yes Circumstance Level of alertness: Alert Patient appearance: Unkempt Behavior: distractible, withdrawn Psychomotor activity: Slowed Eye contact: Fleeting Contact Mood description: Euthymic/stable Affect description: flat Speech pattern: Slowed Thought process: Thought Blocking, Disorganized Thought content: No Suicidal ideation, No Homicidal ideation Perceptual disturbances: Yes Reacting to internal stimuli, Yes Auditory hallucinations Judgment: Limited Insight: Minimal Results - Vital Signs Vital Signs: Temp Pulse Resp BP Pulse Ox 98.5 F 101 18 130/85 97 01/10/17 08:39 01/10/17 08:39 01/10/17 08:39 01/10/17 08:39 01/07/17 22:14 - Labs Labs: Laboratory Results - last 24 hr 01/09/17 01/10/17 01/10/17 17:53 05:41 05:41 WBC 9.2 RBC 4.47 Hgb 13.2 Hct 40.7 MCV 91.1 MCH 29.5 MCHC 32.4 RDW 13.5 Plt Count 238 MPV 10.2 Sodium 139 Potassium 3.4 L Chloride 106 Carbon Dioxide 24 BUN 7 Creatinine 0.85 Est GFR ( Amer) > 60 Est GFR (Non-Af Amer) > 60 BUN/Creatinine Ratio 8 Glucose 121 H POC Glucose 176 H Calculated Osmolality 287 Calcium 8.9 01/10/17 01/10/17 07:18 11:20 WBC RBC Hgb Hct MCV MCH MCHC RDW Plt Count MPV Sodium Potassium Chloride Carbon Dioxide BUN Creatinine Est GFR ( Amer) Est GFR (Non-Af Amer) BUN/Creatinine Ratio Glucose POC Glucose 128 H 91 H Calculated Osmolality Calcium Assessment and Plan (1) Chronic schizophrenia Current visit: Yes Status: Acute Plan: Continue hospitalization, Close observation, Suicide Precautions per unit protocol, Encourage participation in unit milieu, Group Therapy, Monitor sleep, Monitor appetite Additional Plan: Patient is improving slowly on current medications. We will monitor overnight and make medication adjustments tomorrow. Encourage group attendance and participation in unit activities. Monitor for reaction to internal stimuli.. Risks, benefits, side effects, alternatives discussed w/pt: Yes Patient agreeable to treatment: Yes (2) UTI (urinary tract infection) Current visit: Yes Status: Acute Additional Plan: Appreciate internal medicine input. Continue Cipro and monitor improvement. Qualifiers: Urinary tract infection type: acute cystitis Hematuria presence: with hematuria Qualified Code(s): N30.01 - Acute cystitis with hematuria Consult Discharge Plan - Plan Referrals: [facility] [Outside] - 02/02/17 6:00 pm (You are returning into respite at [facility] on discharge from the hospital. While there you will be seen daily by the clinic counselors and case aide, sola Mccann, your director case management. You will also see Dr. casas on 02/02/2017 at 6:00pm.)
[2017-01-10] MEDS: rOPINIRole 1 MG TABLET PO SCH ×2 (21:53→23:50)
[2017-01-10] MEDS: Latanoprost 2.5 ML BOTTLE BOTH EYES SCH ×2 (21:53→23:52)
[2017-01-10] MEDS: traZODone 50 MG TABLET PO PRN (23:51)
--- NOTE | 2017-01-11 07:33 | Event Note ---
Date of Encounter: 01/11/17 Time of Encounter: 07:33 Urine culture is negative. Complete 5 day course of ciprofloxacin. May hold metformin at discharge and start low dose glipizide 5 mg PO daily instead for diabetes mellitus type 2 as metformin can cause diarrhea. Will sign off. Please call with questions.
[2017-01-11] MEDS: Insulin LISPRO 300 UNITS/3 ML VIAL SQ SCH ×3 (07:54→16:25)
[2017-01-11] MEDS: Aspirin Enteric Coated 81 MG Tablet PO SCH (09:03)
[2017-01-11 10:45] LABS: Adenovirus F 40/41 PCR Not detected (Not detect); Astrovirus PCR Not detected (Not detect); C.difficile Toxin A/B by PCR Not detected (Not detect); Campylobacter by PCR Not detected (Not detect); Cryptosporidium by PCR Not detected (Not detect); Cyclospora cayetanensis PCR Not detected (Not detect); E. coli O157 by PCR Not detected (Not detect); Entamoeba histolytica PCR Not detected (Not detect); Enteroaggregative E.coli(EAEC) Not detected (Not detect); Enteropathogenic E.coli(EPEC) Not detected (Not detect); Enterotoxigenic E.coli (ETEC) Not detected (Not detect); Giardia lamblia PCR Not detected (Not detect); Norovirus GI/GII PCR Not detected (Not detect); Plesiomonas shigelloides PCR Not detected (Not detect); Rotavirus A PCR Not detected (Not detect); Salmonella PCR Not detected (Not detect); Sapovirus PCR Not detected (Not detect); Shig/EnteroinvasiveE coli EIEC Not detected (Not detect); Shigalike tox-prod E coli STEC Not detected (Not detect); Vibrio PCR Not detected (Not detect); Vibrio cholerae PCR Not detected (Not detect); Yersinia enterocolitica PCR Not detected (Not detect)
--- NOTE | 2017-01-11 10:50 | Psychiatry Progress Note ---
Date of Encounter: 01/11/17 Time of Encounter: 10:30 Subjective Interval history: Patient is seen today for follow-up. She reports that she feels "okay." Patient reports she has been sleeping well but staff reports that her sleep has been broken and she was up multiple times throughout the night. She is somewhat irritable this morning but willing to verbalize that she feels a little bit better. Very discharged focused and asking when she can go back to [facility]. We discussed that [facility] would have a bed on hold for her and the first available date she could return there would be Thursday. Patient has difficulty understanding how many days and will be until Thursday. She is showering. She is eating. She denies side effects of her medication. Review of Systems Psychiatric: Reports: depression, abnormal sleep pattern, auditory hallucinations, confusion, difficulty concentrating, irritability, mood swings Objective: Exam Patient orientation: Yes Person, Yes Place, Yes Circumstance Level of alertness: Alert Behavior: cooperative, distractible Psychomotor activity: Normal Eye contact: Maintains Eye Contact Mood description: Euthymic/stable Affect description: flat Speech pattern: Normal rate, Normal rhythm, Normal tone Speech volume: Normal Thought process: Circumstantial, [place] Thought content: No Suicidal ideation, No Homicidal ideation Perceptual disturbances: No Reacting to internal stimuli, Yes Auditory hallucinations Judgment: Limited Insight: Minimal Results - Vital Signs Vital Signs: Temp Pulse Resp BP Pulse Ox 98 F 96 18 109/71 97 01/11/17 09:00 01/11/17 09:00 01/11/17 09:00 01/11/17 09:00 01/07/17 22:14 - Labs Labs: Laboratory Results - last 24 hr 01/10/17 01/10/17 01/10/17 11:20 17:30 19:55 POC Glucose 91 H 151 H 128 H Stl C. cayetanensis PCR Stool Rotavirus A PCR Stl Adenov F 40/41 PCR Stool Astrovirus (PCR) Stool Campylobacter PCR Stl C. diff Tox A/B PCR Stool Cryptosporidium PCR Stl Sh Tox Pr E STEC PCR Stool E coli O157 PCR Stl Enterotoxigenic E PCR Stool EPEC (PCR) Stool EAEC (PCR) Stl E. histolytica PCR Stool Giardia Lamblia PCR Stool Salmonella PCR Stool Sapovirus (PCR) Stl P. shigelloides PCR Stl Shigella/EIEC PCR St Y.enterocolitica PCR Stool Vibrio (PCR) Stl Vibrio cholerae PCR Stl Norovirus GI/GII PCR Stl GI Panel (PCR) Com 01/11/17 01/11/17 05:50 07:48 POC Glucose 137 H Stl C. cayetanensis PCR Not detected Stool Rotavirus A PCR Not detected Stl Adenov F 40/41 PCR Not detected Stool Astrovirus (PCR) Not detected Stool Campylobacter PCR Not detected Stl C. diff Tox A/B PCR Not detected Stool Cryptosporidium PCR Not detected Stl Sh Tox Pr E STEC PCR Not detected Stool E coli O157 PCR Not detected Stl Enterotoxigenic E PCR Not detected Stool EPEC (PCR) Not detected Stool EAEC (PCR) Not detected Stl E. histolytica PCR Not detected Stool Giardia Lamblia PCR Not detected Stool Salmonella PCR Not detected Stool Sapovirus (PCR) Not detected Stl P. shigelloides PCR Not detected Stl Shigella/EIEC PCR Not detected St Y.enterocolitica PCR Not detected Stool Vibrio (PCR) Not detected Stl Vibrio cholerae PCR Not detected Stl Norovirus GI/GII PCR Not detected Stl GI Panel (PCR) Com See below Assessment and Plan (1) Chronic schizophrenia Current visit: Yes Status: Acute Plan: Continue hospitalization, Close observation, Suicide Precautions per unit protocol, Encourage participation in unit milieu, Group Therapy, Monitor sleep, Monitor appetite Additional Plan: We will continue current meds but scheduled trazodone to help patient regulate sleep cycle. Encourage group attendance and interaction with peers and staff. Risks, benefits, side effects, alternatives discussed w/pt: Yes Patient agreeable to treatment: Yes (2) UTI (urinary tract infection) Current visit: Yes Status: Acute Additional Plan: Appreciate hospitalist input. We will continue 5 days of Cipro per their recommendations. Qualifiers: Urinary tract infection type: acute cystitis Hematuria presence: with hematuria Qualified Code(s): N30.01 - Acute cystitis with hematuria Consult Discharge Plan - Plan Referrals: [facility] [Outside] - 02/02/17 6:00 pm (You are returning into respite at [facility] on discharge from the hospital. While there you will be seen daily by the clinic counselors and bilingual case manager, sola Mccann, your pillowcase cutter. You will also see Dr. casas on 02/02/2017 at 6:00pm.)
[2017-01-11] MEDS: rOPINIRole 1 MG TABLET PO SCH (20:54)
[2017-01-11] MEDS: traZODone 50 MG TABLET PO SCH (20:55)
[2017-01-11] MEDS: Latanoprost 2.5 ML BOTTLE BOTH EYES SCH (21:01)
[2017-01-12] MEDS: Insulin LISPRO 300 UNITS/3 ML VIAL SQ SCH ×3 (08:03→16:56)
[2017-01-12] MEDS: Aspirin Enteric Coated 81 MG Tablet PO SCH (08:54)
--- NOTE | 2017-01-12 13:49 | Psychiatry Progress Note ---
Date of Encounter: 01/12/17 Time of Encounter: 13:46 Subjective Interval history: Patient is seen for follow-up with the nursing staff. She is feeling better, more cooperative and not showing overt psychotic symptoms or paranoia. We appreciate medical consultation to address several issues including UTI and diabetic management. Patient is more interactive making good eye contact and answering questions appropriately and looks forward to be discharged. Review of Systems Psychiatric: Reports: depression, abnormal sleep pattern, auditory hallucinations, confusion, difficulty concentrating, irritability, mood swings Objective: Exam Patient orientation: Yes Person, Yes Time, Yes Place Level of alertness: Alert Patient appearance: Appropriate, Unkempt, Malodorous Behavior: calm, cooperative, suspicious Psychomotor activity: Normal Eye contact: Minimal Contact Mood description: Euthymic/stable Affect description: congruent with mood, full range Speech pattern: Normal rate, Normal rhythm, Normal tone, Limited Speech volume: Normal Thought process: Linear, Goal Oriented Thought content: No Suicidal ideation, No Homicidal ideation, No Overt delusions , Yes Paranoid delusion Perceptual disturbances: No Auditory hallucinations, No Visual hallucinations Judgment: Fair Insight: Partial Results - Vital Signs Vital Signs: Temp Pulse Resp BP Pulse Ox 98.4 F 103 20 122/80 97 01/12/17 08:49 01/12/17 08:49 01/12/17 08:49 01/12/17 08:49 01/07/17 22:14 - Labs Labs: Laboratory Results - last 24 hr 01/11/17 01/11/17 01/12/17 16:23 22:04 08:00 POC Glucose 104 H 137 H 118 H 01/12/17 11:39 POC Glucose 101 H Assessment and Plan (1) Chronic schizophrenia Current visit: Yes Status: Acute Plan: Continue hospitalization, Close observation, Suicide Precautions per unit protocol, Encourage participation in unit milieu, Group Therapy, Monitor sleep, Monitor appetite Risks, benefits, side effects, alternatives discussed w/pt: Yes Patient agreeable to treatment: Yes Consult Discharge Plan - Plan Referrals: [facility] [Outside] - 02/02/17 6:00 pm (You are returning into respite at [facility] on discharge from the hospital. While there you will be seen daily by the clinic counselors and bottle caser, sola Mccann, your nurse outreach case manager. You will also see Dr. casas on 02/02/2017 at 6:00pm.)
[2017-01-12] MEDS: rOPINIRole 1 MG TABLET PO SCH (20:45)
[2017-01-12] MEDS: traZODone 50 MG TABLET PO SCH (20:50)
[2017-01-12] MEDS: Latanoprost 2.5 ML BOTTLE BOTH EYES SCH (20:53)
[2017-01-13] MEDS: Insulin LISPRO 300 UNITS/3 ML VIAL SQ SCH (08:00)
[2017-01-13] MEDS: Aspirin Enteric Coated 81 MG Tablet PO SCH (08:32)
[2017-01-13 08:44] VITALS: BP 121/75
--- NOTE | 2017-01-13 10:23 | Discharge Summary ---
Date of Encounter: 01/13/17 Time of Encounter: 10:15 Diagnosis - Discharge Diagnosis (1) Chronic schizophrenia Status: Acute Medications - Discharge Medications Prescriptions: Citalopram [CeleXA] 10 mg PO DAILY #60 tablet Paliperidone [Invega] 6 mg PO DAILY #30 tab.er.24 Aspirin [Lo-Dose Aspirin EC] 81 mg PO DAILY 09/05/16 [History] Atorvastatin [Lipitor] 40 mg PO HS 09/05/16 [History] Docusate Sodium [Colace] 100 mg PO DAILY PRN 09/05/16 [History] Furosemide [Lasix] 20 mg PO DAILY 09/05/16 [History] Latanoprost [Xalatan] 1 drop BOTH EYES HS 09/05/16 [History] Lisinopril [Zestril] 10 mg PO DAILY 09/05/16 [History] Ropinirole HCl [Requip] 2 mg PO HS 09/05/16 [History] Invega Sustenna 156 mg IM Q4W 01/08/17 [History] Ciprofloxacin [Cipro] 500 mg PO BID tablet 01/13/17 [Rx] Citalopram [CeleXA] 10 mg PO DAILY #60 tablet 01/13/17 [Rx] Insulin LISPRO [HumaLOG] 0 units SQ TIDAC vial 01/13/17 [Rx] Paliperidone [Invega] 6 mg PO DAILY #30 tab.er.24 01/13/17 [Rx] Allergies No Known Allergies Allergy (Verified 09/04/16 23:27) Results Procedures and tests throughout hospitalization: Completed Lab Orders Category Date Time Status Basic Metabolic Panel AM 0400 Lab 01/10/17 05:41 Completed Complete Blood Count w/o Diff [HEME] AM 0400 Lab 01/10/17 05:41 Completed Completed Microbiology Orders Category Date Time Status Culture,Urine [RM] Stat Lab 01/09/17 16:28 Completed Provider Date of admission: 01/08/17 13:58 Primary care physician: PCP NO Consults: 01/09/17 15:22 Consult to Hospitalist [CONS] Routine Consulting Provider: Nick Conrad Reason for Consult: possible UTI Time Notified: 15:27 Call Completed: Yes Discharging clinician: Jesus Treviño Assessment and Plan - Patient/Caregiver Discharge Instructions Activity: resume usual activities as tolerated Diet: regular diet - Follow up Plan Follow up with: [facility] [Outside] - 02/02/17 6:00 pm (You are returning into respite at [facility] on discharge from the hospital. While there you will be seen daily by the clinic counselors and case supervisor, sola Mccann, your case packer. You will also see Dr. casas on 02/02/2017 at 6:00pm.) Functional capacity at discharge: independent ambulation Overall status at discharge: Stable Disposition: Home, Self-Care Hospital Course Hospital course: Ms. Cano is a 56 year old female admitted for evaluation and treatment of acute episode of schizophrenia. For details of the admission please see H&P 1 the unit patient was suspicious and paranoid she was uncooperative with treatment and medication and in her ADLs are very poor. Medication were reviewed in [facility] tablets 6 mg was added and Celexa was increased to 20 mg daily in addition to using when necessary medication. Patient responded positively reporting improved sleep she was less guarded and suspicious she was more cooperative and interacting with staff and peers. Medical consult was requested to evaluate several medical issues including UTI and diabetic control and internal medicine service adjusted patient's medication and stabilized these conditions. Discharge patient was medically stable, mood and affect were stable and she was not sure paranoia or psychosis, she denied any thoughts of suicide and she was interested and discharged to respite bed. Discharge plans and follow-up were completed by social work specialist. - Time Spent with Patient Total time spent providing and/or coordinating discharge services: Less than 30 minutes Quality - Multiple Antipsychotics Patient discharged on 2 or more antipsychotic medications: No Procedures - Procedures Procedures: Medication Management, Crisis Stabilization, Supportive Therapy, Group Therapy, Psychoeducational Therapy Mental Status Exam - Mental Status Exam Patient orientation: Yes Person, Yes Time, Yes Place Level of alertness: Alert Patient appearance: Appropriate, Unkempt, Disheveled, Obese Behavior: calm, cooperative, guarded Psychomotor activity: Normal Eye contact: Maintains Eye Contact Mood description: Euthymic/stable Affect description: congruent with mood, blunted Speech pattern: Normal rate, Normal rhythm, Normal tone, Limited Speech Volume: Normal Thought process: Linear, Goal Oriented Thought Content: No Suicidal ideation, No Homicidal ideation, No Overt delusions Perceptual Disturbances: No Auditory hallucinations, No Visual hallucinations Judgment: Limited Insight: Partial
== END 2017-01-13 11:25 | disposition home or self-care (01) | DRG 885 ==
LOC: 1ANU 21:53 → EMEROO 21:53 → 1ANU 01-08 03:45
PROVIDERS: ADMIT Psychiatry & Neurology Psychiatry; ATTEND Psychiatry & Neurology Psychiatry

== ENCOUNTER 2017-01-13 17:58 | Inpatient (IN) ==
[2017-01-13 19:04] LABS: Basophils % 0.3 %; Eosinophils # 0.1 K/mcL (0.0-0.6); Hematocrit 41.1 % (35.3-44.9); Immature Granulocytes % 0.5 % (0-4); Lymphocytes # 2.9 K/mcL (0.6-4.6); Lymphocytes % 22.4 %; Mean Corpuscular HGB Conc 31.6 g/dL (31.6-35.5); Mean Corpuscular Hemoglobin 29.9 pg (28.0-33.3); Mean Corpuscular Volume 94.5 fL (83.0-100.0); Mean Platelet Volume 10.5 fL (9.4-12.4); Monocytes # 0.9 K/mcL (0.0-1.3); Monocytes % 7.2 %; Neutrophils # 8.9 K/mcL (1.6-8.9); Platelet Count 245 K/mcL (140-400); Red Blood Count 4.35 M/mcL (3.82-4.97); Red Cell Distribution Width 13.6 % (11.5-14.5); Segmented Neutrophils % 68.6 %
[2017-01-13 19:18] LABS: BUN/Creatinine Ratio 14 (6-26); Blood Urea Nitrogen 37 mg/dL (7-20); Calcium 9.1 mg/dL (8.6-10.8); Carbon Dioxide 23 mEq/L (19-29); Chloride 103 mEq/L (98-109); Glucose 155 mg/dL (70-99); Osmolality,Calculated 298 (280-300); Potassium 4.2 mEq/L (3.5-4.5); Sodium 138 mEq/L (136-145); eGFR For African Americans 22 (> 60); eGFR For Non-African Americans 18 (> 60)
[2017-01-13 19:19] LABS: Acetaminophen < 1.0 mcg/mL (10-30); Ethanol < 10 mg/dL (0-10); Salicylate < 5.0 mg/dL (15-30)
--- NOTE | 2017-01-13 19:27 | Emergency Department Note ---
Disposition Clinical Impression: Acute psychosis, LISA (acute kidney injury), Dehydration Diarrhea Qualifiers: Diarrhea type: unspecified type Qualified Code(s): R19.7 - Diarrhea, unspecified Disposition: Admitted As Inpatient Condition: Good Referrals: Barak Garcia MD [Primary Care Provider] - Forms: ED Satisfaction Letter Psych HPI - General Chief Complaint: ED Psychiatric Symptoms Stated Complaint: Psych Source: patient, EMS Mode of arrival: ambulatory Nursing Notes Reviewed: Yes Vital Signs Reviewed: Yes - History of Present Illness HPI Narrative: Patient is a 56-year-old female from [facility] was referred here for psychiatric consultation. The patient was discharged from the psychiatric facility today when she went back to [facility] she was walking around outside she would come back into the building she was getting into other people' s vehicle she was having delusions or hallucinations and was pink slipped by a mental health provider. The patient also has had several days of diarrhea I spoke with the nurse to psychiatric services the patient had even been incontinent of stool. The patient states her diarrhea has been decreasing she is complaining of some thirst - Related Data Home Medications Medication Instructions Recorded Confirmed Aspirin [Lo-Dose Aspirin EC] 81 mg PO DAILY 09/05/16 01/08/17 Atorvastatin [Lipitor] 40 mg PO HS 09/05/16 01/08/17 Docusate Sodium [Colace] 100 mg PO DAILY PRN 09/05/16 01/08/17 Furosemide [Lasix] 20 mg PO DAILY 09/05/16 01/08/17 Latanoprost [Xalatan] 1 drop BOTH EYES HS 09/05/16 01/08/17 Lisinopril [Zestril] 10 mg PO DAILY 09/05/16 01/08/17 Ropinirole HCl [Requip] 2 mg PO HS 09/05/16 01/08/17 Invega Sustenna 156 mg IM Q4W 01/08/17 01/08/17 Previous Rx's Medication Instructions Recorded Ciprofloxacin [Cipro] 500 mg PO BID tablet 01/13/17 Citalopram [CeleXA] 10 mg PO DAILY #60 tablet 01/13/17 Insulin LISPRO [HumaLOG] 0 units SQ TIDAC vial 01/13/17 Paliperidone [Invega] 6 mg PO DAILY #30 tab.er.24 01/13/17 Allergies Allergy/AdvReac Type Severity Reaction Status Date / Time No Known Allergies Allergy Verified 09/04/16 23:27 All systems ED: reviewed and negative except as stated. Constitutional: Denies: fever, chills Gastrointestinal: Reports: diarrhea Past Medical History - Past Medical History Source: patient, obtained from family, nursing notes reviewed Medical history: Reports: asthma, diabetes, hyperlipidemia, hypertension, other Surgical history: Reports: cholecystectomy, herniorrhaphy, other ( Echocardiogram showed an ejection fraction of 60% on 02/21/2016) Psychiatric history: Reports: bipolar, schizophrenia, previous psychiatric hospitalization OILER HELPER history: Reports: no OILER HELPER history - Social History Smoking Status: Never smoker Smokeless Tobacco Status: No Alcohol use: Reports: none Drug use: Reports: none Physical Exam - General Limitations: no limitations General appearance: alert - Head Head exam: atraumatic, normocephalic, normal inspection - Eye Eye exam: Present: normal appearance, PERRL, EOMI - Expanded Eye Exam Pupils: Left: reactive - ENT ENT exam: normal exam, normal oropharynx, mucous membranes moist - Expanded ENT Exam External ear exam: Present: normal external inspection Mouth exam: Present: normal external inspection Teeth exam: Present: normal inspection Throat exam: Present: normal inspection - Neck Neck exam: Present: normal inspection, full ROM, trachea midline - Chest Chest inspection: Present: normal inspection, symmetric chest wall rise - Respiratory Respiratory exam: Present: normal lung sounds bilaterally - Cardiovascular Cardiovascular exam: Present: regular rate, normal rhythm, normal heart sounds - Abdominal Exam Abdominal exam: Present: soft, Non-Tender. Absent: tenderness, distention, guarding, rebound, rigidity - Extremities Exam Extremities exam: Present: normal inspection, full ROM. Absent: tenderness, pedal edema - Expanded Upper Extremity Exam Shoulder exam: Present: normal inspection, full ROM Arm exam: Present: normal inspection, full ROM Elbow exam: Present: normal inspection, full ROM Forearm/Wrist exam: Present: normal inspection, full ROM Hand exam: Present: normal inspection, full ROM Vascular exam: Normal: capillary refill, radial pulse - Expanded Lower Extremity Exam Hip/Pelvis exam: Present: normal inspection, full ROM Upper leg exam: Present: normal inspection, full ROM Knee exam: Present: normal inspection, full ROM Lower leg exam: Present: normal inspection, full ROM Ankle exam: Present: normal inspection, full ROM Foot/toe exam: Present: normal inspection, full ROM Neurovascular/Tendon exam: Absent: motor deficit, sensory deficit, tendon deficit - Back Exam Back exam: Present: normal inspection, full ROM. Absent: tenderness - Neurological Exam Neurological exam: Present: alert, oriented X3 - Expanded Neurological Exam Patient oriented to: Present: person, place, time Coma Scale Eye Opening: Spontaneous Coma Scale Motor Response: Obeys Commands Coma Scale Verbal Response: Oriented Coma Scale Total: 15 - Psychiatric Psychiatric exam: Present: flat affect - Skin Skin exam: Present: warm, dry, intact, normal color Course Vital Signs Temperature 98.2 F 01/13/17 18:04 Pulse Rate 120 01/13/17 18:04 Respiratory Rate 18 01/13/17 18:04 Blood Pressure 91/61 01/13/17 18:04 O2 Sat by Pulse Oximetry 95 01/13/17 18:04 Temperature 98.2 F 01/13/17 18:04 Pulse Rate 120 01/13/17 18:04 Respiratory Rate 18 01/13/17 18:04 Blood Pressure 91/61 01/13/17 18:04 O2 Sat by Pulse Oximetry 95 01/13/17 18:04 Oxygen Delivery Oxygen Delivery Room Air Psych - Lab Data Result diagrams: 01/13/17 18:54 01/13/17 18:54 Lab Results 01/13/17 01/13/17 01/13/17 Range/Units 18:54 18:54 19:49 WBC 13.0 H (4.3-11.1) K/mcL RBC 4.35 (3.82-4.97) M/mcL Hgb 13.0 (11.5-15.4) g/dL Hct 41.1 (35.3-44.9) % MCV 94.5 (83.0-100.0) fL MCH 29.9 (28.0-33.3) pg MCHC 31.6 (31.6-35.5) g/dL RDW 13.6 (11.5-14.5) % Plt Count 245 (140-400) K/mcL MPV 10.5 (9.4-12.4) fL Immature Gran % 0.5 (0-4) % Seg Neutrophils % 68.6 % Lymphocytes % 22.4 % Monocytes % 7.2 % Eosinophils % 1.0 % Basophils % 0.3 % Neutrophils # 8.9 (1.6-8.9) K/mcL Lymphocytes # 2.9 (0.6-4.6) K/mcL Monocytes # 0.9 (0.0-1.3) K/mcL Eosinophils # 0.1 (0.0-0.6) K/mcL Basophils # 0.0 (0.0-0.2) K/mcL Sodium 138 (136-145) mEq/L Potassium 4.2 (3.5-4.5) mEq/L Chloride 103 (98-109) mEq/L Carbon Dioxide 23 (19-29) mEq/L BUN 37 H (7-20) mg/dL Creatinine 2.73 H (0.57-1.11) mg/dL Est GFR ( Amer) 22 L (> 60) Est GFR (Non-Af Amer) 18 L (> 60) BUN/Creatinine Ratio 14 (6-26) Glucose 155 H (70-99) mg/dL Calculated Osmolality 298 (280-300) Calcium 9.1 (8.6-10.8) mg/dL Urine Color Yellow (Yellow) Urine Clarity Cloudy A (Clear) Urine pH 5.5 (5.0-8.0) pH Units Ur Specific [place] 1.016 (1.010-1.025) Urine Protein Negative (Neg-Trace) mg/dL Urine Glucose (UA) Normal (Normal) mg/dL Urine Ketones Negative (Negative) mg/dL Urine Blood Trace H (Negative) Urine Nitrite Negative (Negative) Urine Bilirubin Negative (Negative) Urine Urobilinogen Normal (Normal) mg/dL Ur Leukocyte Esterase Large H (Negative) Urine Microscopic RBC 3-5 H (0-3) per hpf Urine Microscopic WBC 50-100 H (0-3) per hpf Ur Squamous Epith Cells Many H (None-Few) per lpf Urine Bacteria Few (None-Few) per hpf Hyaline Casts None Seen (None-Few) per lpf Urine Mucus Few (Few) Salicylates < 5.0 L (15-30) mg/dL Urine Opiates Screen (Sfteqk=060) ng/mL Acetaminophen < 1.0 L (10-30) mcg/mL Ur Barbiturates Screen (Llqiyi=281) ng/mL Ur Phencyclidine Scrn (Cutoff=25) ng/mL Ur Amphetamines Screen (Ltofyo=3557) ng/mL U Benzodiazepines Scrn (Hldlzr=883) ng/mL Urine Cocaine Screen (Cutoff= 300) ng/mL U Marijuana (THC) Screen (Cutoff = 50) ng/mL Ethyl Alcohol < 10 (0-10) mg/dL 01/13/17 Range/Units 19:49 WBC (4.3-11.1) K/mcL RBC (3.82-4.97) M/mcL Hgb (11.5-15.4) g/dL Hct (35.3-44.9) % MCV (83.0-100.0) fL MCH (28.0-33.3) pg MCHC (31.6-35.5) g/dL RDW (11.5-14.5) % Plt Count (140-400) K/mcL MPV (9.4-12.4) fL Immature Gran % (0-4) % Seg Neutrophils % % Lymphocytes % % Monocytes % % Eosinophils % % Basophils % % Neutrophils # (1.6-8.9) K/mcL Lymphocytes # (0.6-4.6) K/mcL Monocytes # (0.0-1.3) K/mcL Eosinophils # (0.0-0.6) K/mcL Basophils # (0.0-0.2) K/mcL Sodium (136-145) mEq/L Potassium (3.5-4.5) mEq/L Chloride (98-109) mEq/L Carbon Dioxide (19-29) mEq/L BUN (7-20) mg/dL Creatinine (0.57-1.11) mg/dL Est GFR ( Amer) (> 60) Est GFR (Non-Af Amer) (> 60) BUN/Creatinine Ratio (6-26) Glucose (70-99) mg/dL Calculated Osmolality (280-300) Calcium (8.6-10.8) mg/dL Urine Color (Yellow) Urine Clarity (Clear) Urine pH (5.0-8.0) pH Units Ur Specific [place] (1.010-1.025) Urine Protein (Neg-Trace) mg/dL Urine Glucose (UA) (Normal) mg/dL Urine Ketones (Negative) mg/dL Urine Blood (Negative) Urine Nitrite (Negative) Urine Bilirubin (Negative) Urine Urobilinogen (Normal) mg/dL Ur Leukocyte Esterase (Negative) Urine Microscopic RBC (0-3) per hpf Urine Microscopic WBC (0-3) per hpf Ur Squamous Epith Cells (None-Few) per lpf Urine Bacteria (None-Few) per hpf Hyaline Casts (None-Few) per lpf Urine Mucus (Few) Salicylates (15-30) mg/dL Urine Opiates Screen Negative (Dpzukg=034) ng/mL Acetaminophen (10-30) mcg/mL Ur Barbiturates Screen Negative (Ypwvch=924) ng/mL Ur Phencyclidine Scrn Negative (Cutoff=25) ng/mL Ur Amphetamines Screen Negative (Pypcxf=9546) ng/mL U Benzodiazepines Scrn Negative (Nrskrk=238) ng/mL Urine Cocaine Screen Negative (Cutoff= 300) ng/mL U Marijuana (THC) Screen Negative (Cutoff = 50) ng/mL Ethyl Alcohol (0-10) mg/dL Psychiatric Medical Clearance - Medical Clearance Checklist Medical History: No Social History Section defined Current Vitals: Last Vital Signs Temp 98.2 F 01/13/17 18:04 Pulse 120 01/13/17 18:04 Resp 18 01/13/17 18:04 BP 91/61 01/13/17 18:04 Pulse Ox 95 01/13/17 18:04 Psychiatric Lab Panel: Drug Levels and Toxicity 01/13/17 01/13/17 18:54 19:49 Urine Opiates Screen Negative Acetaminophen < 1.0 L Ur Barbiturates Screen Negative Ur Phencyclidine Scrn Negative Ur Amphetamines Screen Negative U Benzodiazepines Scrn Negative Urine Cocaine Screen Negative U Marijuana (THC) Screen Negative Ethyl Alcohol < 10 Abnormal Labs: Abnormal lab results WBC 13.0 K/mcL (4.3-11.1) H 01/13/17 18:54 BUN 37 mg/dL (7-20) H 01/13/17 18:54 Creatinine 2.73 mg/dL (0.57-1.11) H 01/13/17 18:54 Est GFR ( Amer) 22 (> 60) L 01/13/17 18:54 Est GFR (Non-Af Amer) 18 (> 60) L 01/13/17 18:54 Glucose 155 mg/dL (70-99) H 01/13/17 18:54 Urine Clarity Cloudy (Clear) A 01/13/17 19:49 Urine Blood Trace (Negative) H 01/13/17 19:49 Ur Leukocyte Esterase Large (Negative) H 01/13/17 19:49 Urine Microscopic RBC 3-5 per hpf (0-3) H 01/13/17 19:49 Urine Microscopic WBC 50-100 per hpf (0-3) H 01/13/17 19:49 Ur Squamous Epith Cells Many per lpf (None-Few) H 01/13/17 19:49 Salicylates < 5.0 mg/dL (15-30) L 01/13/17 18:54 Acetaminophen < 1.0 mcg/mL (10-30) L 01/13/17 18:54 Statement of Medical Clearance: I have evaluated the patient, reviewed diagnostic information, and certify that the patient's medical condition is sufficiently stable that transfer to the psychiatric unit does not pose a significant risk of deterioration.
[2017-01-13] MEDS ORDERED: 0.9 % Sodium Chloride 1,000 ML IVC ONE (19:33)
[2017-01-13 20:03] LABS: Amphetamine Screen,Urine Negative ng/mL (Cutoff=1000); Barbiturate Screen,Urine Negative ng/mL (Cutoff=200); Benzodiazepines Screen,Urine Negative ng/mL (Cutoff=200); Cannabinoid Screen,Urine Negative ng/mL (Cutoff = 50); Cocaine Screen,Urine Negative ng/mL (Cutoff= 300); Opiate Screen,Urine Negative ng/mL (Cutoff=300); Phencyclidine Screen,Urine Negative ng/mL (Cutoff=25)
[2017-01-13 20:06] LABS: Bilirubin,Urine Negative (Negative); Blood,Urine Trace (Negative); Clarity,Urine Cloudy (Clear); Color,Urine Yellow (Yellow); Glucose,Urine (UA) Normal (Normal); Ketones,Urine Negative (Negative); Leukocyte Esterase,Urine Large (Negative); Nitrite,Urine Negative (Negative); PH,Urine 5.5 pH Units (5.0-8.0); Protein,Urine Negative (Neg-Trace); Specific Gravity,Urine 1.016 (1.010-1.025); Urobilinogen,Urine Normal (Normal)
[2017-01-13 20:27] LABS: Bacteria,Urine Few per hpf (None-Few); Hyaline Casts,Urine None Seen per lpf (None-Few); Mucus,Urine Few (Few); Squamous Epithelial Cell,Urine Many per lpf (None-Few); WBC,Urine 50-100 per hpf (0-3)
[2017-01-14] MEDS ORDERED: Naloxone 0.4 MG/ML INJ IVP PRN (06:22)
[2017-01-14] MEDS ORDERED: Dextrose Gel 15 GM PO PRN ×2 (06:30)
[2017-01-14] MEDS ORDERED: D5% in Water 1,000 ML IVC PRN (06:30)
[2017-01-14] MEDS ORDERED: *HR* Dextrose 50 % in Water (Syg) 50 ML SYRINGE IVP PRN (06:30)
--- NOTE | 2017-01-14 06:32 | Internal Med History&Physical ---
Date of Encounter: 01/14/17 Time of Encounter: 06:32 Assessment and Plan (1) Acute renal failure Current visit: Yes Status: Acute Likely due to diuretics and diarrhea. Treat with IV fluids and monitor renal function. Avoid nephrotoxic. Hold Lasix Qualifiers: Acute renal failure type: unspecified Qualified Code(s): N17.9 - Acute kidney failure, unspecified (2) Suicidal ideation Current visit: Yes Status: Acute Suicide precautions and psychiatry consult (3) Chronic schizophrenia Current visit: Yes Status: Chronic COntinue home meds. (4) UTI (urinary tract infection) Current visit: Yes Status: Acute Urine cultures pending. Treat emperically with ceftriaxone Qualifiers: Urinary tract infection type: acute cystitis Hematuria presence: with hematuria Qualified Code(s): N30.01 - Acute cystitis with hematuria (5) Leukocytosis Current visit: Yes Status: Acute Likely secondary to UTI versus colitis. Monitor WBC count Qualifiers: Leukocytosis type: unspecified Qualified Code(s): D72.829 - Elevated white blood cell count, unspecified (6) Diarrhea Current visit: Yes Status: Acute Will check stool C.diff and cultures. 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 Cano is a 56 year old female with history of schizophrenia, diabetes mellitus, bipolar disorder, asthma, hypertension. She was discharged from the psych Unit on 01/13/2017, after she was admitted for acute episode of schizophrenia. She was seen by the hospitalist team during last admission and the consult note reported h/o diarrhea. She was discharged to [facility], from where she was sent to the ER. Per the ER note, she was apparently walking around outside and she was getting into other people's vehicle. She apparently was having delusions / hallucinations and was pink slipped by a mental health provider. The patient also has had several days history of diarrhea and apparently had incontinence of stool. She denies abdominal pain, nausea, vomiting, fever, chills, chest pain, shortness of breath, cough. She was evaluated in the emergency department and was noted to have acute kidney injury. She is admitted to the hospitalist service for further workup and management. She reports feeling depressed and wants to see her family, but denies suicidal or homicidal ideation, delusions and hallucinations. Past Med Surg Social Fam HX - Past Medical History Medical history: asthma, diabetes, hyperlipidemia, hypertension, other Psychiatric history: bipolar, schizophrenia, previous psychiatric hospitalization - Past Surgical History Surgical History: cholecystectomy, herniorrhaphy, other - Social History Smoking Status: Never smoker Smokeless Tobacco Status: No Alcohol use: none Drug use: none - Family History Mother Hx Family Endocrine Disorder: Yes (Diabetes) Father Hx Family Endocrine Disorder: Yes (Diabetes) Internal Medicine - H&P: Meds Aspirin [Lo-Dose Aspirin EC] 81 mg PO DAILY 09/05/16 [History] Atorvastatin [Lipitor] 40 mg PO HS 09/05/16 [History] Docusate Sodium [Colace] 100 mg PO DAILY PRN 09/05/16 [History] Furosemide [Lasix] 20 mg PO DAILY 09/05/16 [History] Latanoprost [Xalatan] 1 drop BOTH EYES HS 09/05/16 [History] Lisinopril [Zestril] 10 mg PO DAILY 09/05/16 [History] Ropinirole HCl [Requip] 2 mg PO HS 09/05/16 [History] Paliperidone Palmitate [Invega Sustenna] 156 mg IM QMONTH #0 01/08/17 [History] Ciprofloxacin [Cipro] 500 mg PO BID tablet 01/13/17 [Rx] Citalopram [CeleXA] 10 mg PO DAILY #60 tablet 01/13/17 [Rx] Insulin LISPRO [HumaLOG] 0 units SQ TIDAC vial 01/13/17 [Rx] Paliperidone [Invega] 6 mg PO DAILY #30 tab.er.24 01/13/17 [Rx] SitaGLIPtin [Januvia] 100 mg PO DAILY 01/13/17 [History] metFORMIN [Glucophage] 1,000 mg PO BIDWM 01/13/17 [History] Allergies No Known Allergies Allergy (Verified 09/04/16 23:27) All Systems PM: A 10-system review of systems was performed and is negative for pertinent findings except as documented above in the HPI. - Constitutional Vitals: Temp Pulse Resp BP Pulse Ox 98.1 F 89 16 118/69 95 01/14/17 02:50 01/14/17 02:50 01/14/17 02:50 01/14/17 02:50 01/14/17 02:50 Exam: General: Not in acute distress at the time of my evaluation HEENT: Oral mucosa is moist. No conjunctival palor or scleral icterus Neck: No obvious neck swellings Lungs: Clear to auscultation Cardiac: Regular rate and rhythm. No significant murmurs Abdomen: Soft, non tender. Bowel sounds present Genitourinary: No bernabe catheter Neurological: Alert and oriented. No gross localizing deficits Psych: No delusions or hallucinations at my evaluation Extremities: B/L trace leg edema Skin: No generalized rash Internal Med - H&P Results - Labs CBC & Chem 7: 01/14/17 07:05 01/14/17 07:05 - Impressions ITS Impressions Abdomen/Pelvis CT 01/13/17 19:33 IMPRESSION: 1. No acute process identified. 2. The appendix is not identified. No pericecal inflammatory change. D/ / 01/13/2017 20:42:18 Nathaniel Arthur MD / [email or web address] Interpreting Provider: Nathaniel Arthur MD
[2017-01-14] MEDS: 0.9 % Sodium Chloride 1,000 ML IVC SCH ×2 (06:49→20:52)
[2017-01-14 07:27] LABS: Calcium 8.2 mg/dL (8.6-10.8); Magnesium 1.2 mg/dL (1.6-2.6); Potassium 4.3 mEq/L (3.5-4.5)
[2017-01-14 07:31] LABS: Basophils % 0.3 %; Eosinophils # 0.1 K/mcL (0.0-0.6); Hematocrit 35.9 % (35.3-44.9); Hemoglobin 11.6 g/dL (11.5-15.4); Immature Granulocytes % 0.3 % (0-4); Lymphocytes % 30.3 %; Mean Corpuscular HGB Conc 32.3 g/dL (31.6-35.5); Mean Corpuscular Hemoglobin 30.2 pg (28.0-33.3); Mean Corpuscular Volume 93.5 fL (83.0-100.0); Mean Platelet Volume 10.8 fL (9.4-12.4); Monocytes # 0.9 K/mcL (0.0-1.3); Monocytes % 8.9 %; Neutrophils # 5.8 K/mcL (1.6-8.9); Platelet Count 200 K/mcL (140-400); Red Blood Count 3.84 M/mcL (3.82-4.97); Red Cell Distribution Width 13.9 % (11.5-14.5); Segmented Neutrophils % 59.2 %
[2017-01-14] MEDS ORDERED: Magnesium Sulfate 2 GM in D5% in Water 100 ML IVPB ONE (08:18)
[2017-01-14] MEDS ORDERED: 0.9 % Sodium Chloride 1,000 ML IVC ONE (08:18)
[2017-01-14] MEDS: Insulin LISPRO 300 UNITS/3 ML VIAL SQ SCH ×4 (08:32→20:53)
[2017-01-14] MEDS: Lactobacillus 1 EACH CAP.SPRINK PO SCH ×2 (08:33→20:52)
[2017-01-14] MEDS: *HR* Heparin 5,000 UNIT/ML VIAL SQ SCH ×3 (08:33→21:03)
[2017-01-14] MEDS: Aspirin Enteric Coated 81 MG Tablet PO SCH (08:42)
--- NOTE | 2017-01-14 10:59 | Event Note ---
Date of Encounter: 01/14/17 Time of Encounter: 10:45 56 F with PMH of Morbid Obesity, severe depression, schizophrenia with psychosis , asthma, HTN, Uncontrolled DM patient was just discharged from psych unit 01/13, during that hospitalization, medicine was consulted for managementof UTI, urine cultures 01/07, 01/10, no growth She is readmitted and being managed for Pre-renal, Non-oliguric LISA, possibly secondary to gastroenteritis, medications (patient was taking ACEI/Lasix at home ), Suspected UTI , Seen at bedside No new complains Exam Gen: VSS, Morbidly obese, not in any form of distress, hirsuit HEENT: Moist oral mucosa, acyanotic, anicteric, not pale Neuro: AAOX3, moves all limbs spontaneously, no facial paralysis, no speech deficits Chest: CTAB, no added sounds Heart: S1, S2 only, no m/g/r Abdomen: Obese, soft, not tender Extremities: Well perfused, no edema Labs and Imaging reviewed: CXR unremarkable, Abd CT: L adrenal myelolipoma, L renal cyst, no nephrolithiasis, no pyelonephritis, Cr 2.0, mag 1.2 A/P *LISA: Pre-renal, non-oliguric, possibly from dehydration, medications, continue current mgt, no imaging evidence of obstruction, avoid nephrotoxins, renally dose meds *Gastroenteritis: No reported diarrhea since admission, send stool for c.diff when available, continue antiemetics, IVF *Suspected UTI: Continue ceftriaxone, follow urine culture *DM: Continue current regimen of insulin, may need to adjust metformin upon discharge due to GI symptoms *Schizophrenia/Depression/Psych: Follow psych eval *HTN: BP currently controlled, continue to hold ACEI/Lasix, may start on norvasc prn *Hypomagnessemia: replaced
--- NOTE | 2017-01-14 15:24 | Psychiatry Progress Note ---
Date of Encounter: 01/14/17 Time of Encounter: 15:00 Subjective Interval history: Patient is a 56 years old female with long history of schizophrenia and schizoaffective disorder that was recently discharged from psychiatric unit yesterday after stabilization psychiatric condition on medication. Patient return to the hospital with report of behavioral changes with psychosis and delusion in public in addition she was found to have acute renal failure and UTI leukocytosis diabetes and diarrhea. Patient is currently being stabilized medically on the medical unit. Psychiatric consultation was requested to evaluate and recommend. On interview the patient is alert and oriented, recognizes me denied having any suicidal ideation or hallucinations and was concerned about her treatment with IV she did not display any psychotic symptoms. Objective: Exam Patient orientation: Yes Person, Yes Time, Yes Place Level of alertness: Alert Patient appearance: Appropriate, Unkempt, Disheveled Behavior: calm, cooperative Psychomotor activity: Normal Eye contact: Maintains Eye Contact Mood description: Euthymic/stable Affect description: congruent with mood, constricted Speech pattern: Normal rate, Normal rhythm, Normal tone Speech volume: Normal Thought process: Linear, Goal Oriented Thought content: No Suicidal ideation, No Homicidal ideation, No Overt delusions , Yes Paranoid delusion Perceptual disturbances: No Auditory hallucinations, No Visual hallucinations Judgment: Fair Insight: Partial Results - Vital Signs Vital Signs: Temp Pulse Resp BP Pulse Ox 98.4 F 80 16 109/62 94 01/14/17 10:48 01/14/17 10:48 01/14/17 10:48 01/14/17 10:48 01/14/17 10:48 - Labs Labs: Laboratory Results - last 24 hr 01/14/17 01/14/17 07:05 07:05 WBC 9.8 RBC 3.84 Hgb 11.6 Hct 35.9 MCV 93.5 MCH 30.2 MCHC 32.3 RDW 13.9 Plt Count 200 MPV 10.8 Immature Gran % 0.3 Seg Neutrophils % 59.2 Lymphocytes % 30.3 Monocytes % 8.9 Eosinophils % 1.0 Basophils % 0.3 Neutrophils # 5.8 Lymphocytes # 3.0 Monocytes # 0.9 Eosinophils # 0.1 Basophils # 0.0 Sodium 138 Potassium 4.3 Chloride 108 Carbon Dioxide 23 BUN 36 H Creatinine 2.09 H Est GFR ( Amer) 30 L Est GFR (Non-Af Amer) 24 L BUN/Creatinine Ratio 17 Glucose 116 H Calculated Osmolality 295 Calcium 8.2 L Magnesium 1.2 L Assessment and Plan (1) Chronic schizophrenia Current visit: Yes Status: Chronic Additional Plan: 1. Continue medical stabilization as per medical team 2. Please restart the medication including Celexa 20 mg, Invega 6 mg and Abilify 5 mg. order was given to nursing staff 3. No plans at this time to commit patient to psychiatric unit 4. For discharge planning and disposition please consult social work Thank you for consultation and please address any questions. Consult Discharge Plan - Plan Referrals: Barak Garcia MD [Primary Care Provider] -
[2017-01-14] MEDS: ARIPiprazole 5 MG TABLET PO SCH (20:52)
[2017-01-14] MEDS: rOPINIRole 1 MG TABLET PO SCH (20:52)
[2017-01-14] MEDS: Latanoprost 2.5 ML BOTTLE BOTH EYES SCH (20:56)
[2017-01-15] MEDS: *HR* Heparin 5,000 UNIT/ML VIAL SQ SCH ×3 (06:11→21:21)
[2017-01-15] MEDS: 0.9 % Sodium Chloride 1,000 ML IVC SCH ×2 (06:14→06:15)
[2017-01-15] MEDS: Insulin LISPRO 300 UNITS/3 ML VIAL SQ SCH ×4 (07:25→21:19)
[2017-01-15] MEDS: Lactobacillus 1 EACH CAP.SPRINK PO SCH ×2 (08:12→21:18)
[2017-01-15] MEDS: Aspirin Enteric Coated 81 MG Tablet PO SCH (08:12)
[2017-01-15 08:22] LABS: Basophils # 0.1 K/mcL (0.0-0.2); Basophils % 0.6 %; Eosinophils # 0.1 K/mcL (0.0-0.6); Eosinophils % 1.2 %; Hematocrit 40.2 % (35.3-44.9); Hemoglobin 12.5 g/dL (11.5-15.4); Immature Granulocytes % 0.4 % (0-4); Lymphocytes # 2.2 K/mcL (0.6-4.6); Lymphocytes % 26.5 %; Mean Corpuscular HGB Conc 31.1 g/dL (31.6-35.5); Mean Corpuscular Hemoglobin 29.3 pg (28.0-33.3); Mean Corpuscular Volume 94.1 fL (83.0-100.0); Mean Platelet Volume 10.6 fL (9.4-12.4); Monocytes # 0.7 K/mcL (0.0-1.3); Monocytes % 8.2 %; Neutrophils # 5.3 K/mcL (1.6-8.9); Platelet Count 223 K/mcL (140-400); Red Blood Count 4.27 M/mcL (3.82-4.97); Red Cell Distribution Width 13.6 % (11.5-14.5); Segmented Neutrophils % 63.1 %
[2017-01-15 08:33] LABS: Calcium 8.9 mg/dL (8.6-10.8); Magnesium 1.5 mg/dL (1.6-2.6); Potassium 4.2 mEq/L (3.5-4.5)
--- NOTE | 2017-01-15 12:00 | Internal Med Progress Note ---
Date of Encounter: 01/15/17 Time of Encounter: 11:59 - Assessment and plan (1) Chronic schizophrenia Current Visit: Yes Status: Chronic Assessment and plan: Continue meds, plan is to discharge patient back to psych residential. (2) UTI (urinary tract infection) Current Visit: Yes Status: Acute Assessment and plan: SPECT head, follow urine culture, continue ceftriaxone for now. Qualifiers: Urinary tract infection type: acute cystitis Hematuria presence: with hematuria Qualified Code(s): N30.01 - Acute cystitis with hematuria (3) Diabetes Current Visit: Yes Status: Chronic Assessment and plan: Monitor fingersticks, continue sliding scale insulin Qualifiers: Diabetes mellitus type: type 2 Diabetes mellitus complication status: without complication Diabetes mellitus group home insulin use: without oil heaterman use Qualified Code(s): E11.9 - Type 2 diabetes mellitus without complications (4) Diarrhea Current Visit: Yes Status: Resolved Assessment and plan: Resolved, patient has had no diarrhea since admission. Qualifiers: Diarrhea type: unspecified type Qualified Code(s): R19.7 - Diarrhea, unspecified (5) LISA (acute kidney injury) Current Visit: Yes Status: Acute Assessment and plan: Improved with IV fluid hydration, encourage liberal Fluid intake. (6) Hypomagnesemia Current Visit: Yes Status: Acute Assessment and plan: Replaced. - Subjective Interval history: 56 F with PMH of Morbid Obesity, severe depression, schizophrenia with psychosis , asthma, HTN, Uncontrolled DM patient was just discharged from psych unit 01/13, during that hospitalization, medicine was consulted for managementof UTI, urine cultures 01/07, 01/10, no growth She is readmitted and being managed for Pre-renal, Non-oliguric LISA, possibly secondary to gastroenteritis, medications (patient was taking ACEI/Lasix at home ), Suspected UTI , Seen and evaluated No new complains LISA is improving Patient is clinically improved Anticipate discharge in the morning depending on clinical outcomes. Patient said to have removed IV line by herself and refusing placement. Encouraged liberal fluid intake - Constitutional Vitals: Temp Pulse Resp BP Pulse Ox 98.3 F 77 18 93/63 96 01/15/17 11:30 01/15/17 11:30 01/15/17 11:30 01/15/17 11:30 01/15/17 11:30 Exam Gen: VSS, Morbidly obese, not in any form of distress, hirsuit HEENT: Moist oral mucosa, acyanotic, anicteric, not pale Neuro: AAOX3, moves all limbs spontaneously, no facial paralysis, no speech deficits Chest: CTAB, no added sounds Heart: S1, S2 only, no m/g/r Abdomen: Obese, soft, not tender Extremities: Well perfused, no edema Internal Medicine: Result - Labs CBC & Chem 7: 01/15/17 07:54 01/15/17 07:54 Labs: Short CBC 01/15/17 Range/Units 07:54 WBC 8.4 (4.3-11.1) K/mcL Hgb 12.5 (11.5-15.4) g/dL Hct 40.2 (35.3-44.9) % Plt Count 223 (140-400) K/mcL Neutrophils # 5.3 (1.6-8.9) K/mcL BMP 01/15/17 07:54 Sodium 143 Potassium 4.2 Chloride 113 H Carbon Dioxide 26 BUN 21 H D Creatinine 1.37 H Glucose 116 H Calcium 8.9 Consult Discharge Plan - Plan Referrals: Barak Garcia MD [Primary Care Provider] - 01/23/17 10:00 am
[2017-01-15] MEDS: ARIPiprazole 5 MG TABLET PO SCH (21:18)
[2017-01-15] MEDS: rOPINIRole 1 MG TABLET PO SCH (21:19)
[2017-01-15] MEDS: Latanoprost 2.5 ML BOTTLE BOTH EYES SCH (21:20)
[2017-01-16] MEDS: *HR* Heparin 5,000 UNIT/ML VIAL SQ SCH ×2 (06:22→13:39)
[2017-01-16] MEDS: 0.9 % Sodium Chloride 1,000 ML IVC SCH (07:31)
[2017-01-16] MEDS: Insulin LISPRO 300 UNITS/3 ML VIAL SQ SCH ×2 (08:13→12:20)
[2017-01-16] MEDS ORDERED: Cefdinir 300 MG CAPSULE PO SCH (09:00)
[2017-01-16] MEDS: Aspirin Enteric Coated 81 MG Tablet PO SCH (09:07)
[2017-01-16] MEDS: Lactobacillus 1 EACH CAP.SPRINK PO SCH (09:07)
--- NOTE | 2017-01-16 10:53 | Discharge Summary ---
Date of Encounter: 01/16/17 Time of Encounter: 10:52 - Discharge Diagnosis (1) Chronic schizophrenia Priority: Secondary Status: Chronic (2) UTI (urinary tract infection) Priority: Primary Status: Acute Qualifiers: Urinary tract infection type: acute cystitis Hematuria presence: with hematuria Qualified Code(s): N30.01 - Acute cystitis with hematuria (3) Diabetes Priority: Secondary Status: Chronic Qualifiers: Diabetes mellitus type: type 2 Diabetes mellitus complication status: without complication Diabetes mellitus fpc insulin use: without fpc use Qualified Code(s): E11.9 - Type 2 diabetes mellitus without complications (4) Diarrhea Priority: Primary Status: Resolved Qualifiers: Diarrhea type: unspecified type Qualified Code(s): R19.7 - Diarrhea, unspecified (5) LISA (acute kidney injury) Priority: Primary Status: Acute (6) Hypomagnesemia Priority: Primary Status: Resolved - Discharge Medications Prescriptions: Nitrofurantoin (BID) [Macrobid] 100 mg PO BID #10 capsule Home Medications: Aspirin [Lo-Dose Aspirin EC] 81 mg PO DAILY 09/05/16 [History] Atorvastatin [Lipitor] 40 mg PO HS 09/05/16 [History] Docusate Sodium [Colace] 100 mg PO DAILY PRN 09/05/16 [History] Latanoprost [Xalatan] 1 drop BOTH EYES HS 09/05/16 [History] Ropinirole HCl [Requip] 2 mg PO HS 09/05/16 [History] Paliperidone Palmitate [Invega Sustenna] 156 mg IM QMONTH #0 01/08/17 [History] Insulin LISPRO [HumaLOG] 0 units SQ TIDAC vial 01/13/17 [Rx] Paliperidone [Invega] 6 mg PO DAILY #30 tab.er.24 01/13/17 [Rx] SitaGLIPtin [Januvia] 100 mg PO DAILY 01/13/17 [History] metFORMIN [Glucophage] 1,000 mg PO BIDWM 01/13/17 [History] Citalopram [CeleXA] 20 mg PO DAILY #60 tablet 01/16/17 [Rx] Nitrofurantoin (BID) [Macrobid] 100 mg PO BID #10 capsule 01/16/17 [Rx] Allergies/Adverse Reactions: Allergies No Known Allergies Allergy (Verified 09/04/16 23:27) Date of admission: 01/14/17 06:22 Primary care physician: Barak Garcia MD Consults: 01/14/17 06:28 Consult to Psychiatry [CONS] Routine Consulting Provider: Estrella Mckinnon Reason for Consult: Depression - recent admission to psychiatric unit Call Completed: No 01/14/17 16:07 Consult to Oil Field Pumper (W&C) [CONS] Routine Reason For Exam: Reason for SW Consult: discharge planning to [facility].. Discharging clinician: Dakotah Beatty Anticipated date of discharge: 01/16/17 - Patient Status Disposition: Transfer Other Condition: Good Functional capacity at discharge: independent ambulation Overall status at discharge: patient is back to baseline - Discharge Instructions Instructions: Acute Kidney Injury (DC), Urinary Tract Infection in Women (DC), Hypokalemia (DC), Hypomagnesemia (DC) Follow Up With: Barak Garcia MD [Primary Care Provider] - 01/23/17 10:00 am - Diet and Activity Activity: resume usual activities as tolerated Diet: diabetic diet, low fat, low cholesterol, low salt diet Interval History: See below Hospital course: Ms. Cano is a 56 year old female with PMH of Depression/anxiety/Schizophrenia/ DM/HTN/HLD Patient was admitted to Medicine for management of UTI, LISA, Diarrhea She was psychotic with suicidal ideation on admission, however, she was cleared by psychiatrisr. Work up on admission revealed LISA with Cr of 2.73, UA with evidence of UTI, Urine culture grew Enterococcus fecalis, CBC showed leukocytosis on admission which promptly resolved with IVF hydration and antibiotics. Other work up unremarkable. Patient has been having progressive improvement in her clinical status and her kidney function has continued to improve She was on Lasix and Lisinopril at home for "swelling", patient denies any cardiac history, these medications were held due to acute kidney injury She is clinically stable for discharge to [facility] She is educated about the changes in her medications She is encouraged to continue liberal fluid intake, follow up with PCP for renal function tests and medication adjustment if necessary. - Time Spent with Patient Total time spent providing and/or coordinating discharge services: Less than 30 minutes - Constitutional Vitals: Temp Pulse Resp BP Pulse Ox 98.7 F 72 15 114/65 97 01/16/17 07:56 01/16/17 07:56 01/16/17 07:56 01/16/17 07:56 01/16/17 09:09 General appearance: Present: A&O X 3, pleasant, no acute distress Exam: Exam Gen: VSS, Morbidly obese, not in any form of distress, hirsuit HEENT: Moist oral mucosa, acyanotic, anicteric, not pale Neuro: AAOX3, moves all limbs spontaneously, no facial paralysis, no speech deficits Chest: CTAB, no added sounds Heart: S1, S2 only, no m/g/r Abdomen: Obese, soft, not tender Extremities: Well perfused, no edema - Head Head exam: Present: atraumatic, normocephalic
[2017-01-16 11:01] VITALS: BP 127/84
== END 2017-01-16 14:32 | disposition other institution (70) | DRG 683 ==
LOC: EMEROO 17:58 → 3BNU 17:58 → SUATTDRO 01-14 06:22
PROVIDERS: ADMIT Internal Medicine Sleep Medicine; ATTEND Internal Medicine

== ENCOUNTER 2017-01-29 17:22 | Inpatient (IN) ==
--- NOTE | 2017-01-29 17:48 | Emergency Department Note ---
START Narrative - START START: I examined this patient and my medical decision-making was reviewed with the PRIVATE WATCHMAN/PA/Advanced Practice Nurse/Resident Physician. I agree with the documented findings, disposition and treatment plan as described except to the extent set forth below. ED attending note: Patient seen with emergency medicine resident Dr. SAINZ. Please see a copy of his note for details of the H&P, evaluation, management and disposition of this patient. We independently had [id number] contact with the patient Briefly: This 56-year-old -Chinese female by EMS with pink slip from [facility] for aggressive behavior with outbursts towards other members of the mental health community that she is living with. History of depression and other mental health problems in this patient. She is awake alert and cooperative. Patient will undergo medical clearance and then be evaluated by a mental health service here for further treatment.
[2017-01-29 17:49] LABS: Color,Urine Orange (Yellow)
--- NOTE | 2017-01-29 17:50 | Emergency Department Note ---
Disposition Clinical Impression: Homicidal ideation Disposition: Still a Patient Condition: Fair Referrals: Unassigned,Provider [Non-Partnered Physician] - Forms: ED Satisfaction Letter Time of Disposition: 18:43 Psych HPI - General Chief Complaint: ED Psychiatric Symptoms Stated Complaint: COMBATIVE BEHAVIORS Time Seen by Provider: 01/29/17 17:30 Source: patient, EMS, other Mode of arrival: EMS Limitations: no limitations Nursing Notes Reviewed: Yes Vital Signs Reviewed: Yes - History of Present Illness HPI Narrative: Patient is a 56-year-old female who was sent to the emergency department by [facility]. Apparently patient was getting aggressive and threatening to kill other fellow patients at the health care facility. When questioned, patient denies any thoughts of harming herself or other people. States she does not know why she is here. Past medical history significant for hallucinations and depression. Patient denies hearing any voices or seeing people telling her to do anything. Denies any chest pain, shortness of breath, abdominal pain. No problems with urination or bowel movements. No problems with eating or drinking. No fevers or chills. Patient states she thought she was doing fine at the [facility]. 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 Improves with: none Worsens with: none Alleged intoxication: No Associated Psychiatric Symptoms: depression Associated symptoms: Reports: denies other symptoms Traumatic symptoms: denies traumatic injury Treatments prior to arrival: none Self harm or harm to others: denies thoughts of harming self/others - Related Data Home Medications Medication Instructions Recorded Confirmed Aspirin [Lo-Dose Aspirin EC] 81 mg PO DAILY 09/05/16 01/13/17 Atorvastatin [Lipitor] 40 mg PO HS 09/05/16 01/13/17 Docusate Sodium [Colace] 100 mg PO DAILY PRN 09/05/16 01/13/17 Latanoprost [Xalatan] 1 drop BOTH EYES HS 09/05/16 01/13/17 Ropinirole HCl [Requip] 2 mg PO HS 09/05/16 01/13/17 Paliperidone Palmitate [Invega 156 mg IM QMONTH #0 01/08/17 01/13/17 Sustenna] SitaGLIPtin [Januvia] 100 mg PO DAILY 01/13/17 01/13/17 metFORMIN [Glucophage] 1,000 mg PO BIDWM 01/13/17 01/13/17 Previous Rx's Medication Instructions Recorded Insulin LISPRO [HumaLOG] 0 units SQ TIDAC vial 01/13/17 Paliperidone [Invega] 6 mg PO DAILY #30 tab.er.24 01/13/17 Citalopram [CeleXA] 20 mg PO DAILY #60 tablet 01/16/17 Nitrofurantoin (BID) [Macrobid] 100 mg PO BID #10 capsule 01/16/17 Allergies Allergy/AdvReac Type Severity Reaction Status Date / Time No Known Allergies Allergy Verified 01/29/17 17:34 All systems ED: reviewed and negative except as stated. Past Medical History - Past Medical History Attestation: Yes The following information was validated with the patient. Source: patient Medical history: Reports: asthma, COPD, diabetes, hyperlipidemia, hypertension, other Surgical history: Reports: cholecystectomy, herniorrhaphy, other Psychiatric history: Reports: bipolar, schizophrenia, previous psychiatric hospitalization GROUND WIRER history: Reports: no GROUND WIRER history - Social History Smoking Status: Never smoker Smokeless Tobacco Status: No Alcohol use: Reports: none Drug use: Reports: none Physical Exam - General Limitations: no limitations General appearance: alert - Head Head exam: atraumatic, normocephalic, normal inspection - Eye Eye exam: Present: normal appearance, EOMI - ENT ENT exam: normal exam, normal oropharynx, mucous membranes moist - Neck Neck exam: Present: normal inspection, full ROM, trachea midline - Chest Chest inspection: Present: normal inspection, symmetric chest wall rise - Respiratory Respiratory exam: Present: normal lung sounds bilaterally - Cardiovascular Cardiovascular exam: Present: normal rhythm, tachycardia, normal heart sounds - Abdominal Exam Abdominal exam: Present: soft, Non-Tender. Absent: tenderness, distention, guarding, rebound, rigidity - Extremities Exam Extremities exam: Present: normal inspection, full ROM. Absent: tenderness, pedal edema - Back Exam Back exam: Present: normal inspection, full ROM. Absent: tenderness - Neurological Exam Neurological exam: Present: alert - Psychiatric Psychiatric exam: Present: normal affect, normal mood - Skin Skin exam: Present: warm, dry, intact, normal color Course Course Narrative: Patient seen and examined. Patient sent over for aggressive behavior and threatening with homicidal ideations. Patient denying any of this at this time. We will medically clear then have psychiatry 1A evaluation. Patient was pink slipped by the [facility] facility. - Reevaluation(s) Reevaluation #1: Patient's lab work showed some leukocytosis which is consistent with prior labs. She also showed a dirty urine sample. Since her urine analysis was completely clean yesterday, I do not suspect that she has developed a urinary tract infection in the meantime. She has no symptoms of urinary tract infection including dysuria or burning with urination. This will be cultured. Patient's creatinine is slightly elevated from her previous level. However she has had many episodes where it has been slightly elevated in the past. Patient medically cleared. Awaiting 1A evaluation. At this time, patient has been signed out to night team. Time: 18:40 Vital Signs Temperature 98.1 F 01/29/17 17:26 Pulse Rate 103 01/29/17 17:26 Respiratory Rate 18 01/29/17 17:26 Blood Pressure 130/74 01/29/17 17:26 O2 Sat by Pulse Oximetry 96 01/29/17 17:26 Temperature 98.1 F 01/29/17 17:26 Pulse Rate 103 01/29/17 17:26 Respiratory Rate 18 01/29/17 17:26 Blood Pressure 130/74 01/29/17 17:26 O2 Sat by Pulse Oximetry 96 01/29/17 17:26 Oxygen Delivery Oxygen Delivery Room Air Psych - Medical Records Medical records reviewed: Yes I reviewed the patient's medical records. - Lab Data Lab results reviewed: Yes I reviewed the patient's lab results. Result diagrams: 01/29/17 17:52 01/29/17 17:52 Lab Results 01/29/17 01/29/17 01/29/17 Range/Units 17:30 17:35 17:52 WBC 12.4 H (4.3-11.1) K/mcL RBC 4.36 (3.82-4.97) M/mcL Hgb 12.8 (11.5-15.4) g/dL Hct 41.2 (35.3-44.9) % MCV 94.5 (83.0-100.0) fL MCH 29.4 (28.0-33.3) pg MCHC 31.1 L (31.6-35.5) g/dL RDW 13.3 (11.5-14.5) % Plt Count 280 (140-400) K/mcL MPV 10.0 (9.4-12.4) fL Immature Gran % 0.6 (0-4) % Seg Neutrophils % 64.7 % Lymphocytes % 25.7 % Monocytes % 7.7 % Eosinophils % 1.0 % Basophils % 0.3 % Neutrophils # 8.0 (1.6-8.9) K/mcL Lymphocytes # 3.2 (0.6-4.6) K/mcL Monocytes # 1.0 (0.0-1.3) K/mcL Eosinophils # 0.1 (0.0-0.6) K/mcL Basophils # 0.0 (0.0-0.2) K/mcL Sodium (136-145) mEq/L Potassium (3.5-4.5) mEq/L Chloride (98-109) mEq/L Carbon Dioxide (19-29) mEq/L BUN (7-20) mg/dL Creatinine (0.57-1.11) mg/dL Est GFR ( Amer) (> 60) Est GFR (Non-Af Amer) (> 60) BUN/Creatinine Ratio (6-26) Glucose (70-99) mg/dL Calculated Osmolality (280-300) Calcium (8.6-10.8) mg/dL Urine Color Elliott A (Yellow) Urine Clarity Cloudy A (Clear) Urine pH TNP Ur Specific [place] TNP Urine Protein TNP Urine Glucose (UA) TNP Urine Ketones TNP Urine Blood TNP Urine Nitrite TNP Urine Bilirubin TNP Urine Urobilinogen TNP Ur Leukocyte Esterase TNP Urine Microscopic RBC 0-3 (0-3) per hpf Urine Microscopic WBC TNTC H (0-3) per hpf Ur Squamous Epith Cells Many H (None-Few) per lpf Ur Renal Epithelial Cell Few (None-Few) per hpf Urine Bacteria Many H (None-Few) per hpf Hyaline Casts Test Not Performed Salicylates (15-30) mg/dL Urine Opiates Screen Negative (Jtkejj=640) ng/mL Acetaminophen (10-30) mcg/mL Ur Barbiturates Screen Negative (Sfewdu=188) ng/mL Ur Phencyclidine Scrn Negative (Cutoff=25) ng/mL Ur Amphetamines Screen Negative (Qhluvo=3846) ng/mL U Benzodiazepines Scrn Negative (Wlubvc=087) ng/mL Urine Cocaine Screen Negative (Cutoff= 300) ng/mL U Marijuana (THC) Screen Negative (Cutoff = 50) ng/mL Ethyl Alcohol (0-10) mg/dL 01/29/17 Range/Units 17:52 WBC (4.3-11.1) K/mcL RBC (3.82-4.97) M/mcL Hgb (11.5-15.4) g/dL Hct (35.3-44.9) % MCV (83.0-100.0) fL MCH (28.0-33.3) pg MCHC (31.6-35.5) g/dL RDW (11.5-14.5) % Plt Count (140-400) K/mcL MPV (9.4-12.4) fL Immature Gran % (0-4) % Seg Neutrophils % % Lymphocytes % % Monocytes % % Eosinophils % % Basophils % % Neutrophils # (1.6-8.9) K/mcL Lymphocytes # (0.6-4.6) K/mcL Monocytes # (0.0-1.3) K/mcL Eosinophils # (0.0-0.6) K/mcL Basophils # (0.0-0.2) K/mcL Sodium 139 (136-145) mEq/L Potassium 4.5 (3.5-4.5) mEq/L Chloride 103 (98-109) mEq/L Carbon Dioxide 29 (19-29) mEq/L BUN 15 (7-20) mg/dL Creatinine 1.18 H (0.57-1.11) mg/dL Est GFR ( Amer) 57 L (> 60) Est GFR (Non-Af Amer) 47 L (> 60) BUN/Creatinine Ratio 13 (6-26) Glucose 127 H (70-99) mg/dL Calculated Osmolality 290 (280-300) Calcium 9.4 (8.6-10.8) mg/dL Urine Color (Yellow) Urine Clarity (Clear) Urine pH Ur Specific [place] Urine Protein Urine Glucose (UA) Urine Ketones Urine Blood Urine Nitrite Urine Bilirubin Urine Urobilinogen Ur Leukocyte Esterase Urine Microscopic RBC (0-3) per hpf Urine Microscopic WBC (0-3) per hpf Ur Squamous Epith Cells (None-Few) per lpf Ur Renal Epithelial Cell (None-Few) per hpf Urine Bacteria (None-Few) per hpf Hyaline Casts Salicylates < 5.0 L (15-30) mg/dL Urine Opiates Screen (Zzspks=194) ng/mL Acetaminophen < 1.0 L (10-30) mcg/mL Ur Barbiturates Screen (Flumsx=523) ng/mL Ur Phencyclidine Scrn (Cutoff=25) ng/mL Ur Amphetamines Screen (Snqvra=2792) ng/mL U Benzodiazepines Scrn (Uyiyou=151) ng/mL Urine Cocaine Screen (Cutoff= 300) ng/mL U Marijuana (THC) Screen (Cutoff = 50) ng/mL Ethyl Alcohol < 10 (0-10) mg/dL Psychiatric Medical Clearance - Medical Clearance Checklist Does the patient have a NEW psychiatric condition?: No Any abnormalities indicating possible medical illness?: No Any history of medical issues?: No Medical History: No Social History Section defined Any abnormal vital signs prior to transfer?: No Current Vitals: Last Vital Signs Temp 98.1 F 01/29/17 17:26 Pulse 103 01/29/17 17:26 Resp 18 01/29/17 17:26 BP 130/74 01/29/17 17:26 Pulse Ox 96 01/29/17 17:26 Is the patient intoxicated or cognitively impaired?: No Psychiatric Lab Panel: Drug Levels and Toxicity 01/29/17 01/29/17 17:35 17:52 Urine Opiates Screen Negative Acetaminophen < 1.0 L Ur Barbiturates Screen Negative Ur Phencyclidine Scrn Negative Ur Amphetamines Screen Negative U Benzodiazepines Scrn Negative Urine Cocaine Screen Negative U Marijuana (THC) Screen Negative Ethyl Alcohol < 10 Any abnormalities on the physical exam?: No Any abnormal labs?: Yes Abnormal Labs: Abnormal lab results WBC 12.4 K/mcL (4.3-11.1) H 01/29/17 17:52 MCHC 31.1 g/dL (31.6-35.5) L 01/29/17 17:52 Creatinine 1.18 mg/dL (0.57-1.11) H 01/29/17 17:52 Est GFR ( Amer) 57 (> 60) L 01/29/17 17:52 Est GFR (Non-Af Amer) 47 (> 60) L 01/29/17 17:52 Glucose 127 mg/dL (70-99) H 01/29/17 17:52 Urine Color Elliott (Yellow) A 01/29/17 17:30 Urine Clarity Cloudy (Clear) A 01/29/17 17:30 Urine Microscopic WBC TNTC per hpf (0-3) H 01/29/17 17:30 Ur Squamous Epith Cells Many per lpf (None-Few) H 01/29/17 17:30 Urine Bacteria Many per hpf (None-Few) H 01/29/17 17:30 Salicylates < 5.0 mg/dL (15-30) L 01/29/17 17:52 Acetaminophen < 1.0 mcg/mL (10-30) L 01/29/17 17:52 Does the patient require durable medical equiptment?: No Is the patient ambulatory?: Yes Is the patient a fall risk?: No Has the patient been medically cleared?: Yes Any acute medical condition require Tx prior to transfer?: No Statement of Medical Clearance: I have evaluated the patient, reviewed diagnostic information, and certify that the patient's medical condition is sufficiently stable that transfer to the psychiatric unit does not pose a significant risk of deterioration.
[2017-01-29 17:51] LABS: Bacteria,Urine Many per hpf (None-Few); Squamous Epithelial Cell,Urine Many per lpf (None-Few); WBC,Urine TNTC per hpf (0-3)
[2017-01-29 17:53] LABS: Clarity,Urine Cloudy (Clear)
[2017-01-29 17:55] LABS: Amphetamine Screen,Urine Negative ng/mL (Cutoff=1000); Barbiturate Screen,Urine Negative ng/mL (Cutoff=200); Benzodiazepines Screen,Urine Negative ng/mL (Cutoff=200); Cocaine Screen,Urine Negative ng/mL (Cutoff= 300); Opiate Screen,Urine Negative ng/mL (Cutoff=300); Phencyclidine Screen,Urine Negative ng/mL (Cutoff=25)
[2017-01-29 18:08] LABS: RBC,Urine 0-3 per hpf (0-3)
[2017-01-29 18:09] LABS: Renal Epithelial Cells,Urine Few per hpf (None-Few)
[2017-01-29 18:10] LABS: Basophils % 0.3 %; Eosinophils # 0.1 K/mcL (0.0-0.6); Hematocrit 41.2 % (35.3-44.9); Hemoglobin 12.8 g/dL (11.5-15.4); Immature Granulocytes % 0.6 % (0-4); Lymphocytes # 3.2 K/mcL (0.6-4.6); Lymphocytes % 25.7 %; Mean Corpuscular HGB Conc 31.1 g/dL (31.6-35.5); Mean Corpuscular Hemoglobin 29.4 pg (28.0-33.3); Mean Corpuscular Volume 94.5 fL (83.0-100.0); Monocytes % 7.7 %; Platelet Count 280 K/mcL (140-400); Red Blood Count 4.36 M/mcL (3.82-4.97); Red Cell Distribution Width 13.3 % (11.5-14.5); Segmented Neutrophils % 64.7 %
[2017-01-29 18:19] LABS: Cannabinoid Screen,Urine Negative ng/mL (Cutoff = 50)
[2017-01-29 18:27] LABS: Acetaminophen < 1.0 mcg/mL (10-30); BUN/Creatinine Ratio 13 (6-26); Blood Urea Nitrogen 15 mg/dL (7-20); Calcium 9.4 mg/dL (8.6-10.8); Carbon Dioxide 29 mEq/L (19-29); Chloride 103 mEq/L (98-109); Ethanol < 10 mg/dL (0-10); Glucose 127 mg/dL (70-99); Osmolality,Calculated 290 (280-300); Potassium 4.5 mEq/L (3.5-4.5); Salicylate < 5.0 mg/dL (15-30); Sodium 139 mEq/L (136-145); eGFR For African Americans 57 (> 60); eGFR For Non-African Americans 47 (> 60)
[2017-01-29 18:49] LABS: Thyroid Stimulating Hormone 2.879 mcIU/mL (0.350-4.840)
--- NOTE | 2017-01-29 19:31 | Emergency Department Note ---
Disposition Clinical Impression: Homicidal ideation Psychosis Qualifiers: Psychosis type: unspecified psychosis type Qualified Code(s): F29 - Unspecified psychosis not due to a substance or known physiological condition Disposition: Admitted As Inpatient Condition: Fair Instructions: Brief Psychotic Disorder (ED) Referrals: Unassigned,Provider [Non-Partnered Physician] - Forms: ED Satisfaction Letter Time of Disposition: 20:03 General Adult HPI - General Chief complaint: ED Psychiatric Symptoms Stated complaint: COMBATIVE BEHAVIORS Time Seen by Provider: 01/29/17 17:30 Source: patient, EMS, other Mode of arrival: EMS Limitations: no limitations - History of Present Illness Pain Scale: 0 - Related Data Home Medications Medication Instructions Recorded Confirmed Aspirin [Lo-Dose Aspirin EC] 81 mg PO DAILY 09/05/16 01/13/17 Atorvastatin [Lipitor] 40 mg PO HS 09/05/16 01/13/17 Docusate Sodium [Colace] 100 mg PO DAILY PRN 09/05/16 01/13/17 Latanoprost [Xalatan] 1 drop BOTH EYES HS 09/05/16 01/13/17 Ropinirole HCl [Requip] 2 mg PO HS 09/05/16 01/13/17 Paliperidone Palmitate [Invega 156 mg IM QMONTH #0 01/08/17 01/13/17 Sustenna] SitaGLIPtin [Januvia] 100 mg PO DAILY 01/13/17 01/13/17 metFORMIN [Glucophage] 1,000 mg PO BIDWM 01/13/17 01/13/17 Previous Rx's Medication Instructions Recorded Insulin LISPRO [HumaLOG] 0 units SQ TIDAC vial 01/13/17 Paliperidone [Invega] 6 mg PO DAILY #30 tab.er.24 01/13/17 Citalopram [CeleXA] 20 mg PO DAILY #60 tablet 01/16/17 Nitrofurantoin (BID) [Macrobid] 100 mg PO BID #10 capsule 01/16/17 Allergies Allergy/AdvReac Type Severity Reaction Status Date / Time No Known Allergies Allergy Verified 01/29/17 17:34 Past Medical History - Past Medical History Medical history: Reports: asthma, COPD, diabetes, hyperlipidemia, hypertension, other Surgical history: Reports: cholecystectomy, herniorrhaphy, other Psychiatric history: Reports: bipolar, schizophrenia, previous psychiatric hospitalization RAMP BOSS history: Reports: no RAMP BOSS history - Social History Smoking Status: Never smoker Smokeless Tobacco Status: No Alcohol use: Reports: none Drug use: Reports: none Physical Exam - General Limitations: no limitations General appearance: alert Course Vital Signs Temperature 98.1 F 01/29/17 17:26 Pulse Rate 103 01/29/17 17:26 Respiratory Rate 18 01/29/17 17:26 Blood Pressure 130/74 01/29/17 17:26 O2 Sat by Pulse Oximetry 96 01/29/17 17:26 Temperature 98.1 F 01/29/17 17:26 Pulse Rate 103 01/29/17 17:26 Respiratory Rate 18 01/29/17 17:26 Blood Pressure 130/74 01/29/17 17:26 O2 Sat by Pulse Oximetry 96 01/29/17 17:26 Oxygen Delivery Oxygen Delivery Room Air Medical Decision Making - Lab Data Result diagrams: 01/29/17 17:52 01/29/17 17:52 Lab Results 01/29/17 01/29/17 01/29/17 Range/Units 17:30 17:35 17:52 WBC 12.4 H (4.3-11.1) K/mcL RBC 4.36 (3.82-4.97) M/mcL Hgb 12.8 (11.5-15.4) g/dL Hct 41.2 (35.3-44.9) % MCV 94.5 (83.0-100.0) fL MCH 29.4 (28.0-33.3) pg MCHC 31.1 L (31.6-35.5) g/dL RDW 13.3 (11.5-14.5) % Plt Count 280 (140-400) K/mcL MPV 10.0 (9.4-12.4) fL Immature Gran % 0.6 (0-4) % Seg Neutrophils % 64.7 % Lymphocytes % 25.7 % Monocytes % 7.7 % Eosinophils % 1.0 % Basophils % 0.3 % Neutrophils # 8.0 (1.6-8.9) K/mcL Lymphocytes # 3.2 (0.6-4.6) K/mcL Monocytes # 1.0 (0.0-1.3) K/mcL Eosinophils # 0.1 (0.0-0.6) K/mcL Basophils # 0.0 (0.0-0.2) K/mcL Sodium (136-145) mEq/L Potassium (3.5-4.5) mEq/L Chloride (98-109) mEq/L Carbon Dioxide (19-29) mEq/L BUN (7-20) mg/dL Creatinine (0.57-1.11) mg/dL Est GFR ( Amer) (> 60) Est GFR (Non-Af Amer) (> 60) BUN/Creatinine Ratio (6-26) Glucose (70-99) mg/dL Calculated Osmolality (280-300) Calcium (8.6-10.8) mg/dL TSH (0.350-4.840) mcIU/mL Ur Specimen Adequacy See below A Urine Color [place] A (Yellow) Urine Clarity Cloudy A (Clear) Urine pH TNP Ur Specific [place] TNP Urine Protein TNP Urine Glucose (UA) TNP Urine Ketones TNP Urine Blood TNP Urine Nitrite TNP Urine Bilirubin TNP Urine Urobilinogen TNP Ur Leukocyte Esterase TNP Urine Microscopic RBC 0-3 (0-3) per hpf Urine Microscopic WBC TNTC H (0-3) per hpf Ur Squamous Epith Cells Many H (None-Few) per lpf Ur Renal Epithelial Cell Few (None-Few) per hpf Urine Bacteria Many H (None-Few) per hpf Hyaline Casts Test Not Performed Salicylates (15-30) mg/dL Urine Opiates Screen Negative (Wajfhp=815) ng/mL Acetaminophen (10-30) mcg/mL Ur Barbiturates Screen Negative (Aiqvfj=335) ng/mL Ur Phencyclidine Scrn Negative (Cutoff=25) ng/mL Ur Amphetamines Screen Negative (Hbftni=8020) ng/mL U Benzodiazepines Scrn Negative (Xkdyvd=887) ng/mL Urine Cocaine Screen Negative (Cutoff= 300) ng/mL U Marijuana (THC) Screen Negative (Cutoff = 50) ng/mL Ethyl Alcohol (0-10) mg/dL 01/29/17 Range/Units 17:52 WBC (4.3-11.1) K/mcL RBC (3.82-4.97) M/mcL Hgb (11.5-15.4) g/dL Hct (35.3-44.9) % MCV (83.0-100.0) fL MCH (28.0-33.3) pg MCHC (31.6-35.5) g/dL RDW (11.5-14.5) % Plt Count (140-400) K/mcL MPV (9.4-12.4) fL Immature Gran % (0-4) % Seg Neutrophils % % Lymphocytes % % Monocytes % % Eosinophils % % Basophils % % Neutrophils # (1.6-8.9) K/mcL Lymphocytes # (0.6-4.6) K/mcL Monocytes # (0.0-1.3) K/mcL Eosinophils # (0.0-0.6) K/mcL Basophils # (0.0-0.2) K/mcL Sodium 139 (136-145) mEq/L Potassium 4.5 (3.5-4.5) mEq/L Chloride 103 (98-109) mEq/L Carbon Dioxide 29 (19-29) mEq/L BUN 15 (7-20) mg/dL Creatinine 1.18 H (0.57-1.11) mg/dL Est GFR ( Amer) 57 L (> 60) Est GFR (Non-Af Amer) 47 L (> 60) BUN/Creatinine Ratio 13 (6-26) Glucose 127 H (70-99) mg/dL Calculated Osmolality 290 (280-300) Calcium 9.4 (8.6-10.8) mg/dL TSH 2.879 (0.350-4.840) mcIU/mL Ur Specimen Adequacy Urine Color (Yellow) Urine Clarity (Clear) Urine pH Ur Specific [place] Urine Protein Urine Glucose (UA) Urine Ketones Urine Blood Urine Nitrite Urine Bilirubin Urine Urobilinogen Ur Leukocyte Esterase Urine Microscopic RBC (0-3) per hpf Urine Microscopic WBC (0-3) per hpf Ur Squamous Epith Cells (None-Few) per lpf Ur Renal Epithelial Cell (None-Few) per hpf Urine Bacteria (None-Few) per hpf Hyaline Casts Salicylates < 5.0 L (15-30) mg/dL Urine Opiates Screen (Jfovuf=133) ng/mL Acetaminophen < 1.0 L (10-30) mcg/mL Ur Barbiturates Screen (Udnmip=911) ng/mL Ur Phencyclidine Scrn (Cutoff=25) ng/mL Ur Amphetamines Screen (Iazrzg=9408) ng/mL U Benzodiazepines Scrn (Rnuoxm=351) ng/mL Urine Cocaine Screen (Cutoff= 300) ng/mL U Marijuana (THC) Screen (Cutoff = 50) ng/mL Ethyl Alcohol < 10 (0-10) mg/dL Attestation Statement - Attestation Attestation: Care assumed from Dr. Jung at 7 PM pending behavioral consultation. The patient was cleared medically by Dr. Jung. 20:00: 1A has ordered the patient to be discharged back to the [facility] 21:00: [facility] has refused to take the patient back. 1A as determining a disposition for the patient 23:07: 1A accepts admission to psych unit
[2017-01-29] MEDS ORDERED: *HR* LORazepam 2 MG/ML VIAL IM PRN (23:44)
[2017-01-29] MEDS ORDERED: hydrOXYzine pamoate 25 MG CAPSULE PO PRN (23:44)
[2017-01-29] MEDS ORDERED: Mag Hydrox/Al Hydrox/Simeth 30 ML UDC PO PRN (23:44)
[2017-01-29] MEDS ORDERED: Ibuprofen 400 MG TABLET PO PRN (23:44)
[2017-01-29] MEDS ORDERED: traZODone 50 MG TABLET PO PRN (23:44)
[2017-01-29] MEDS ORDERED: *HR* LORazepam 1 MG TABLET PO PRN (23:44)
[2017-01-29] MEDS ORDERED: MOM Conc 10 ML UD.LIQ PO PRN (23:44)
[2017-01-29] MEDS ORDERED: Haloperidol Lactate 5 MG/ML VIAL IM PRN (23:44)
[2017-01-30] MEDS ORDERED: Furosemide 20 MG TABLET PO PRN (11:36)
[2017-01-30] MEDS ORDERED: D5% in Water 1,000 ML IVC PRN (11:43)
[2017-01-30] MEDS ORDERED: *HR* Dextrose 50 % in Water (Syg) 50 ML SYRINGE IVP PRN (11:43)
[2017-01-30] MEDS ORDERED: Dextrose Gel 15 GM PO PRN ×2 (11:43)
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
[2017-01-30] MEDS: Aspirin Enteric Coated 81 MG Tablet PO SCH (12:05)
[2017-01-30] MEDS: Insulin LISPRO 300 UNITS/3 ML VIAL SQ SCH (17:02)
[2017-01-30] MEDS: Latanoprost 2.5 ML BOTTLE BOTH EYES SCH (22:42)
[2017-01-30] MEDS: rOPINIRole 1 MG TABLET PO SCH (22:42)
[2017-01-31] MEDS: Insulin LISPRO 300 UNITS/3 ML VIAL SQ SCH ×3 (08:18→16:33)
[2017-01-31] MEDS: Aspirin Enteric Coated 81 MG Tablet PO SCH (08:53)
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
[2017-01-31] MEDS: rOPINIRole 1 MG TABLET PO SCH (20:46)
[2017-01-31] MEDS: Latanoprost 2.5 ML BOTTLE BOTH EYES SCH (21:12)
[2017-02-01] MEDS: Insulin LISPRO 300 UNITS/3 ML VIAL SQ SCH ×3 (08:14→16:31)
[2017-02-01] MEDS: Aspirin Enteric Coated 81 MG Tablet PO SCH (09:26)
--- NOTE | 2017-02-01 10:25 | Psychiatry Progress Note ---
Date of Encounter: 02/01/17 Time of Encounter: 10:22 Subjective Interval history: Doing well on the unit. Eating and sleeping well. No behavior problems. Not aggressive. Reports she is emotional today. Worried about the future. Worried she is in trouble for her behavior at [facility] and worried she might not be welcome back there if it happens again. Responds well to positive reinforcement/encouragement. Denies suicidal thoughts but admits she gets depressed about things. Some psychosis at baseline secondary to chronic Schizophrenia. No acute issues that need addressed. [facility] scheduled to evaluate her tomorrow. If all goes well she can be discharged tomorrow. Review of Systems Constitutional: Denies: fever, chills, weakness, weight change Eyes: Denies: eye pain, vision change Ears, Nose, Throat: Denies: ear pain, throat pain, dental pain, hearing loss, congestion Cardiovascular: Denies: chest pain, palpitations, dyspnea on exertion Respiratory: Denies: cough, dyspnea, wheezes Gastrointestinal: Denies: abdominal pain, nausea, vomiting, diarrhea, constipation Musculoskeletal: Denies: joint swelling, joint pain Neurological: Denies: headache, weakness, numbness, memory loss Objective: Exam Patient orientation: Yes Person, Yes Time, Yes Place Level of alertness: Alert Patient appearance: Appropriate, Well Groomed Behavior: calm, cooperative Psychomotor activity: Slowed Eye contact: Maintains Eye Contact Mood description: Depressed Affect description: congruent with mood Speech pattern: Slowed Speech volume: Normal Thought process: Slowed Thinking Thought content: No Suicidal ideation, No Homicidal ideation, No Overt delusions Perceptual disturbances: Yes Auditory hallucinations Judgment: Fair Insight: Partial Results - Vital Signs Vital Signs: Temp Pulse Resp BP Pulse Ox 98.4 F 88 16 117/83 96 02/01/17 08:34 02/01/17 08:34 02/01/17 08:34 02/01/17 08:34 01/29/17 17:26 - Labs Labs: Laboratory Results - last 24 hr 01/31/17 01/31/17 02/01/17 11:49 16:30 08:12 POC Glucose 111 H 105 H 120 H Assessment and Plan (1) Psychosis Current visit: Yes Status: Acute Plan: Continue hospitalization, Close observation, Suicide Precautions per unit protocol, Encourage participation in unit milieu, Group Therapy, Monitor sleep, Monitor appetite Risks, benefits, side effects, alternatives discussed w/pt: Yes Patient agreeable to treatment: Yes Qualifiers: Psychosis type: schizophrenia Schizophrenia type: unspecified Qualified Code(s): F20.9 - Schizophrenia, unspecified Consult Discharge Plan - Plan Referrals: [facility] [Outside] - 02/02/17 6:00 pm (The above appointement is with Dr. Young. You will be seen daily by clinic counselors, case preparer and liner, and otehr staff as well.)
[2017-02-01] MEDS: rOPINIRole 1 MG TABLET PO SCH (20:13)
[2017-02-01] MEDS: Latanoprost 2.5 ML BOTTLE BOTH EYES SCH (20:13)
[2017-02-02 08:35] VITALS: BP 115/16
[2017-02-02] MEDS: Insulin LISPRO 300 UNITS/3 ML VIAL SQ SCH ×2 (08:51→14:10)
[2017-02-02] MEDS: Aspirin Enteric Coated 81 MG Tablet PO SCH (08:52)
--- NOTE | 2017-02-02 11:43 | Discharge Summary ---
Date of Encounter: 02/02/17 Time of Encounter: 11:12 Diagnosis - Discharge Diagnosis (1) Psychosis Status: Acute Qualifiers: Psychosis type: schizophrenia Schizophrenia type: unspecified Qualified Code(s): F20.9 - Schizophrenia, unspecified Medications - Discharge Medications Prescriptions: Aspirin Enteric Coated [Aspirin EC] 81 mg PO DAILY #30 tablet.dr Atorvastatin [Lipitor] 40 mg PO HS #30 tablet Citalopram [CeleXA] 10 mg PO DAILY #30 tablet Docusate [Colace] 100 mg PO DAILY #30 capsule Furosemide [Lasix] 20 mg PO DAILY #30 tablet Latanoprost [Xalatan] 1 drop BOTH EYES HS #1 bottle Lisinopril [Zestril] 10 mg PO DAILY #30 tablet Paliperidone [Invega] 6 mg PO DAILY #30 tab.er.24 Paliperidone [Invega] 6 mg PO DAILY #30 tab.er.24 rOPINIRole [Requip] 2 mg PO HS #30 tablet Aspirin [Lo-Dose Aspirin EC] 81 mg PO DAILY 09/05/16 [History] Atorvastatin [Lipitor] 40 mg PO HS 09/05/16 [History] Docusate Sodium [Colace] 100 mg PO DAILY PRN 09/05/16 [History] Latanoprost [Xalatan] 1 drop BOTH EYES HS 09/05/16 [History] Ropinirole HCl [Requip] 2 mg PO HS 09/05/16 [History] Paliperidone Palmitate [Invega Sustenna] 156 mg IM QMONTH #0 01/08/17 [History] SitaGLIPtin [Januvia] 100 mg PO DAILY 01/13/17 [History] metFORMIN [Glucophage] 1,000 mg PO BIDWM 01/13/17 [History] Citalopram [CeleXA] 20 mg PO DAILY #60 tablet 01/16/17 [Rx] ALPRAZolam [Xanax 1 MG Tablet] 1 mg PO TID PRN 01/30/17 [History] Benzonatate [Tessalon] 100 mg PO TID PRN 01/30/17 [History] Benztropine [Cogentin] 1 mg PO TID PRN 01/30/17 [History] Montelukast [Singulair] 10 mg PO DAILY 01/30/17 [History] Zolpidem [Ambien] 10 mg PO HS PRN 01/30/17 [History] Aspirin Enteric Coated [Aspirin EC] 81 mg PO DAILY #30 tablet.dr 02/02/17 [Rx] Atorvastatin [Lipitor] 40 mg PO HS #30 tablet 02/02/17 [Rx] Citalopram [CeleXA] 10 mg PO DAILY #30 tablet 02/02/17 [Rx] Docusate [Colace] 100 mg PO DAILY #30 capsule 02/02/17 [Rx] Furosemide [Lasix] 20 mg PO DAILY #30 tablet 02/02/17 [Rx] Latanoprost [Xalatan] 1 drop BOTH EYES HS #1 bottle 02/02/17 [Rx] Lisinopril [Zestril] 10 mg PO DAILY #30 tablet 02/02/17 [Rx] Paliperidone [Invega] 6 mg PO DAILY #30 tab.er.24 02/02/17 [Rx] Paliperidone [Invega] 6 mg PO DAILY #30 tab.er.24 02/02/17 [Rx] rOPINIRole [Requip] 2 mg PO HS #30 tablet 02/02/17 [Rx] Allergies No Known Allergies Allergy (Verified 01/29/17 17:34) Provider Date of admission: 01/30/17 12:25 Primary care physician: PCP NO Discharging clinician: Mirna Madrid Assessment and Plan - Patient/Caregiver Discharge Instructions Activity: resume usual activities as tolerated Diet: diabetic diet - Follow up Plan Follow up with: [facility] [Outside] - 02/02/17 6:00 pm (The above appointement is with Dr. Young. You will be seen daily by clinic counselors, hospice case manager, and otehr staff as well.) Functional capacity at discharge: independent ambulation Overall status at discharge: Stable Disposition: Home, Self-Care Hospital Course Hospital course: Ms. Cano is a 56 year old female with chronic schizophrenia who was admitted after acting aggressively at [facility]. However, she was a calm and cooperative patient in the hospital. She reported wanting to return to [facility] and she was apologetic for her behaviors there. She was evaluated by staff from [facility] on the day of discharge. They were agreeable to taking her back and Sheree reported they had a good conversation. She denied SI/HI on the day of discharge. AH at her baseline. Behaviors appropriate. - Time Spent with Patient Total time spent providing and/or coordinating discharge services: Quality - Multiple Antipsychotics Patient discharged on 2 or more antipsychotic medications: No Procedures - Procedures Procedures: Medication Management, Crisis Stabilization, Supportive Therapy, Group Therapy Mental Status Exam - Mental Status Exam Patient orientation: Yes Person, Yes Time, Yes Place Level of alertness: Alert Patient appearance: Appropriate Behavior: calm Psychomotor activity: Slowed Eye contact: Maintains Eye Contact Mood description: Euthymic/stable Affect description: blunted Speech pattern: Normal rate, Normal rhythm, Normal tone Speech Volume: Normal Thought process: Goal Oriented Thought Content: No Suicidal ideation, No Homicidal ideation, No Overt delusions Perceptual Disturbances: Yes Auditory hallucinations Judgment: Fair Insight: Partial
== END 2017-02-02 16:30 | disposition home or self-care (01) | DRG 885 ==
LOC: 1ANU 17:22 → EMEROO 17:22 → 1ANU 23:49 → SUATTDRO 01-30 12:25
PROVIDERS: ADMIT Psychiatry & Neurology Psychiatry; ATTEND Psychiatry & Neurology Psychiatry

== ENCOUNTER 2019-05-26 14:43 | Inpatient (IN) ==
[2019-05-26 15:13] LABS: Bilirubin,Urine Negative (Negative); Blood,Urine Negative (Negative); Clarity,Urine Clear (Clear); Color,Urine Yellow (Yellow); Glucose,Urine (UA) Normal (Normal); Ketones,Urine Negative (Negative); Leukocyte Esterase,Urine Large (Negative); Nitrite,Urine Negative (Negative); Protein,Urine Trace mg/dL (Neg-Trace); Specific Gravity,Urine 1.018 (1.010-1.025); Urobilinogen,Urine Normal (Normal)
[2019-05-26 15:16] LABS: Hyaline Casts,Urine None Seen per lpf (None-Few); Squamous Epithelial Cell,Urine Many per lpf (None-Few); WBC,Urine 15-30 per hpf (0-3)
[2019-05-26 15:27] LABS: Bacteria,Urine Few per hpf (None-Few); Yeast,Urine Few per hpf (None Seen)
[2019-05-26 15:51] LABS: Amphetamine Screen,Urine Negative ng/mL (Cutoff=1000); Barbiturate Screen,Urine Negative ng/mL (Cutoff=200); Benzodiazepines Screen,Urine Negative ng/mL (Cutoff=200); Cannabinoid Screen,Urine Negative ng/mL (Cutoff = 50); Cocaine Screen,Urine Negative ng/mL (Cutoff= 300); Opiate Screen,Urine Positive ng/mL (Cutoff=300); Phencyclidine Screen,Urine Negative ng/mL (Cutoff=25)
[2019-05-26 15:52] LABS: Hematocrit 35.4 % (35.3-44.9); Hemoglobin 11.6 g/dL (11.5-15.4); Mean Corpuscular HGB Conc 32.8 g/dL (31.6-35.5); Mean Corpuscular Volume 106.9 fL (83.0-100.0); Mean Platelet Volume 10.6 fL (9.4-12.4); Monocytes # 0.3 K/mcL (0.0-1.3); Platelet Count 144 K/mcL (140-400); Red Blood Count 3.31 M/mcL (3.82-4.97); Red Cell Distribution Width 15.7 % (11.5-14.5); White Blood Count 5.2 K/mcL (4.3-11.1)
[2019-05-26 16:10] LABS: Acetaminophen < 10 mcg/mL (10-20); BUN/Creatinine Ratio 10 (6-26); Blood Urea Nitrogen 9 mg/dL (6-20); Carbon Dioxide 29 mEq/L (23-29); Chloride 103 mEq/L (98-107); Ethanol < 10 mg/dL (Less than 10); Glucose 157 mg/dL (70-105); Osmolality,Calculated 288 (280-300); Potassium 3.9 mEq/L (3.5-5.1); Salicylate < 2.5 mg/dL (15.0-30.0); Sodium 138 mEq/L (136-145); eGFR For African Americans > 60 (> 60); eGFR For Non-African Americans > 60 (> 60)
[2019-05-26] MEDS ORDERED: cephALEXin 500 MG CAPSULE PO STA (16:14)
[2019-05-26 16:30] LABS: Lymphocytes # 4.1 K/mcL (0.6-4.6); Neutrophils # 0.8 K/mcL (1.6-8.9)
[2019-05-26 16:33] LABS: Platelet Estimate Slight Decrease (Normal)
[2019-05-26] MEDS ORDERED: MOM Conc 10 ML UD.LIQ PO PRN (18:09)
[2019-05-26] MEDS ORDERED: Acetaminophen 325 MG TABLET PO PRN (18:09)
[2019-05-26] MEDS ORDERED: Mag Hydrox/Al Hydrox/Simeth 30 ML UDC PO PRN (18:09)
[2019-05-26] MEDS ORDERED: *HR* LORazepam 1 MG TABLET PO PRN (18:09)
[2019-05-26] MEDS ORDERED: Haloperidol Lactate 5 MG/ML VIAL IM PRN (18:09)
[2019-05-26] MEDS ORDERED: *HR* LORazepam 2 MG/ML VIAL IM PRN (18:09)
[2019-05-26] MEDS: traZODone 50 MG TABLET PO PRN (21:10)
[2019-05-26] MEDS: cephALEXin 500 MG CAPSULE PO SCH (21:11)
[2019-05-26] MEDS: hydrOXYzine pamoate 25 MG CAPSULE PO PRN (21:11)
[2019-05-27] MEDS ORDERED: NON-FORMULARY MEDICATION 1 EACH EACH (Promethazine/Dextromethorphan [Promethazine-Dm Syrup PO PRN (08:05)
[2019-05-27] MEDS ORDERED: *HR* OxyCODONE Immed Rel 5 MG TABLET PO PRN (08:05)
[2019-05-27] MEDS ORDERED: Sennosides/Docusate Sodium TABLET PO PRN (08:05)
[2019-05-27] MEDS ORDERED: IBRANCE 125 MG PO SCH (09:00)
[2019-05-27] MEDS ORDERED: Morphine Sulfate ER (12 HR) 15 MG TABLET.ER PO PRN (09:03)
[2019-05-27] MEDS: Cholecalciferol (D-3) 1,000 UNIT (25MCG) TABLET PO SCH (09:36)
[2019-05-27] MEDS: *HR* Metformin 500 MG TABLET PO SCH ×2 (09:36→16:56)
[2019-05-27] MEDS: cephALEXin 500 MG CAPSULE PO SCH ×2 (09:37→20:15)
[2019-05-27] MEDS: Lactulose Oral Soln 20 GM/30 ML UDC PO SCH (09:37)
[2019-05-27] MEDS: Aspirin Enteric Coated 81 MG Tablet PO SCH (09:37)
[2019-05-27] MEDS: Letrozole 2.5 MG TABLET PO SCH (10:04)
[2019-05-27] MEDS ORDERED: GuaiFENesin/Dextromethorphan TABLET PO PRN (10:26)
[2019-05-27] MEDS: Morphine Sulfate ER (12 HR) 15 MG TABLET.ER PO SCH ×2 (11:02→20:15)
[2019-05-27] MEDS ORDERED: IBRANCE 125 MG PO ONE ×2 (12:15→15:00)
[2019-05-27 13:14] LABS: Chol/HDL Ratio 3.3 (0-4.9)
[2019-05-27 13:19] LABS: Estimated Average Glucose 163 mg/dl
[2019-05-27] MEDS: ALOGLIPTIN 25 MG PO SCH (14:57)
[2019-05-27] MEDS: Latanoprost 2.5 ML BOTTLE BOTH EYES SCH (20:15)
[2019-05-28] MEDS: *HR* Metformin 500 MG TABLET PO SCH ×2 (10:03→17:07)
[2019-05-28] MEDS: Aspirin Enteric Coated 81 MG Tablet PO SCH (10:04)
[2019-05-28] MEDS: Cholecalciferol (D-3) 1,000 UNIT (25MCG) TABLET PO SCH (10:04)
[2019-05-28] MEDS: Morphine Sulfate ER (12 HR) 15 MG TABLET.ER PO SCH ×2 (10:04→20:59)
[2019-05-28] MEDS: cephALEXin 500 MG CAPSULE PO SCH ×2 (10:04→20:59)
[2019-05-28] MEDS: Letrozole 2.5 MG TABLET PO SCH (10:04)
[2019-05-28] MEDS: ALOGLIPTIN 25 MG PO SCH (10:05)
[2019-05-28] MEDS: Lactulose Oral Soln 20 GM/30 ML UDC PO SCH (10:05)
[2019-05-28] MEDS: Latanoprost 2.5 ML BOTTLE BOTH EYES SCH (21:00)
[2019-05-29] MEDS: Morphine Sulfate ER (12 HR) 15 MG TABLET.ER PO SCH ×2 (09:48→20:17)
[2019-05-29] MEDS: Cholecalciferol (D-3) 1,000 UNIT (25MCG) TABLET PO SCH (09:48)
[2019-05-29] MEDS: Aspirin Enteric Coated 81 MG Tablet PO SCH (09:49)
[2019-05-29] MEDS: cephALEXin 500 MG CAPSULE PO SCH ×2 (09:49→20:16)
[2019-05-29] MEDS: Letrozole 2.5 MG TABLET PO SCH (09:49)
[2019-05-29] MEDS: *HR* Metformin 500 MG TABLET PO SCH ×2 (09:49→17:07)
[2019-05-29] MEDS: Lactulose Oral Soln 20 GM/30 ML UDC PO SCH (09:53)
[2019-05-29] MEDS: ALOGLIPTIN 25 MG PO SCH (09:57)
[2019-05-29] MEDS: traZODone 50 MG TABLET PO PRN (20:16)
[2019-05-29] MEDS: hydrOXYzine pamoate 25 MG CAPSULE PO PRN (20:16)
[2019-05-29] MEDS: Latanoprost 2.5 ML BOTTLE BOTH EYES SCH (20:17)
[2019-05-30] MEDS: Cholecalciferol (D-3) 1,000 UNIT (25MCG) TABLET PO SCH (09:45)
[2019-05-30] MEDS: Morphine Sulfate ER (12 HR) 15 MG TABLET.ER PO SCH ×2 (09:45→21:08)
[2019-05-30] MEDS: Lactulose Oral Soln 20 GM/30 ML UDC PO SCH (09:45)
[2019-05-30] MEDS: Letrozole 2.5 MG TABLET PO SCH (09:45)
[2019-05-30] MEDS: Aspirin Enteric Coated 81 MG Tablet PO SCH (09:45)
[2019-05-30] MEDS: *HR* Metformin 500 MG TABLET PO SCH ×2 (09:45→16:51)
[2019-05-30] MEDS: ALOGLIPTIN 25 MG PO SCH (09:46)
[2019-05-30] MEDS: cephALEXin 500 MG CAPSULE PO SCH ×2 (09:46→21:07)
[2019-05-30] MEDS: traZODone 50 MG TABLET PO PRN (21:08)
[2019-05-30] MEDS: hydrOXYzine pamoate 25 MG CAPSULE PO PRN (21:08)
[2019-05-30] MEDS: Latanoprost 2.5 ML BOTTLE BOTH EYES SCH (21:09)
[2019-05-31] MEDS: Morphine Sulfate ER (12 HR) 15 MG TABLET.ER PO SCH (09:35)
[2019-05-31] MEDS: Letrozole 2.5 MG TABLET PO SCH (09:35)
[2019-05-31] MEDS: cephALEXin 500 MG CAPSULE PO SCH (09:35)
[2019-05-31] MEDS: Cholecalciferol (D-3) 1,000 UNIT (25MCG) TABLET PO SCH (09:35)
[2019-05-31] MEDS: Aspirin Enteric Coated 81 MG Tablet PO SCH (09:35)
[2019-05-31] MEDS: Lactulose Oral Soln 20 GM/30 ML UDC PO SCH (09:36)
[2019-05-31] MEDS: *HR* Metformin 500 MG TABLET PO SCH (09:36)
[2019-05-31] MEDS: ALOGLIPTIN 25 MG PO SCH (09:37)
[2019-05-31 10:02] VITALS: BP 119/66
== END 2019-05-31 15:55 | disposition home or self-care (01) | DRG 750 ==
LOC: EMEROOARM 14:43 → 1ANU 16:59
PROVIDERS: ADMIT Psychiatry & Neurology Psychiatry; ATTEND Psychiatry & Neurology Psychiatry

== ENCOUNTER 2019-12-20 10:21 | Inpatient (IN) ==
[2019-12-20] MEDS ORDERED: Isovue-370 500 ML BOTTLE IVP ONE (10:35)
[2019-12-20] MEDS ORDERED: Ondansetron 4 MG/2 ML VIAL IVP STA (10:39)
[2019-12-20 11:01] LABS: Hematocrit 37.6 % (35.3-44.9); Hemoglobin 12.7 g/dL (11.5-15.4); Mean Corpuscular HGB Conc 33.8 g/dL (31.6-35.5); Mean Corpuscular Hemoglobin 36.3 pg (28.0-33.3); Mean Corpuscular Volume 107.4 fL (83.0-100.0); Mean Platelet Volume 10.8 fL (9.4-12.4); Platelet Count 148 K/mcL (140-400); Red Cell Distribution Width 15.1 % (11.5-14.5); White Blood Count 1.4 K/mcL (4.3-11.1)
[2019-12-20 11:29] LABS: Alanine Aminotransferase 15 Units/L (7-52); Albumin 4.5 g/dL (3.5-5.7); Albumin/Globulin Ratio 1.4 (1.1-2.2); Alkaline Phosphatase 66 Units/L (34-104); Aspartate Amino Transferase 19 Units/L (13-39); BUN/Creatinine Ratio 10 (6-26); Bilirubin,Direct 0.3 mg/dL (0.0-0.2); Bilirubin,Indirect 0.9 mg/dL (0.0-1.0); Bilirubin,Total 1.2 mg/dL (0.3-1.0); Blood Urea Nitrogen 12 mg/dL (6-20); Calcium 10.2 mg/dL (8.6-10.3); Carbon Dioxide 26 mEq/L (23-29); Chloride 98 mEq/L (98-107); Globulin 3.2 g/dL (2.4-3.5); Glucose 182 mg/dL (70-105); Lipase 4 Units/L (11-82); Osmolality,Calculated 286 (280-300); Potassium 3.6 mEq/L (3.5-5.1); Sodium 136 mEq/L (136-145); Total Protein 7.7 g/dL (6.4-8.9); Troponin I < 0.03 ng/mL (< 0.04); eGFR For African Americans 58 (> 60); eGFR For Non-African Americans 48 (> 60)
[2019-12-20 11:41] LABS: Lymphocytes # 1.1 K/mcL (0.6-4.6); Neutrophils # 0.2 K/mcL (1.6-8.9); Reactive Lymphocytes Present (Not Present)
[2019-12-20 11:42] LABS: Anisocytosis 1+ (Not Present); Platelet Estimate Normal (Normal); Polychromasia 1+ (Not Present)
[2019-12-20 11:43] LABS: Macrocytosis Present (Not Present)
[2019-12-20 12:16] LABS: Bilirubin,Urine Small (Negative); Blood,Urine Negative (Negative); Clarity,Urine Clear (Clear); Color,Urine Yellow (Yellow); Glucose,Urine (UA) Normal (Normal); Ketones,Urine 15 mg/dL (Negative); Leukocyte Esterase,Urine Small (Negative); Nitrite,Urine Negative (Negative); PH,Urine 7.5 pH Units (5.0-8.0); Protein,Urine 100 mg/dL (Neg-Trace); Specific Gravity,Urine > 1.030 (1.010-1.025); Urobilinogen,Urine Normal (Normal)
[2019-12-20 12:17] LABS: Bacteria,Urine Few per hpf (None-Few); Hyaline Casts,Urine Few per lpf (None-Few); Squamous Epithelial Cell,Urine Many per lpf (None-Few)
[2019-12-20 12:27] LABS: RBC,Urine 0-3 per hpf (0-3)
[2019-12-20] MEDS ORDERED: Metoclopramide 10 MG/2 ML VIAL IVP ONE (13:09)
[2019-12-20] MEDS ORDERED: Naloxone 0.4 MG/ML INJ IVP PRN (13:26)
[2019-12-20] MEDS ORDERED: D5% in Water 1,000 ML IVC PRN (13:29)
[2019-12-20] MEDS ORDERED: Dextrose Gel 15 GM/37.5 ML TUBE PO PRN ×2 (13:29)
[2019-12-20] MEDS ORDERED: *HR* Dextrose 50 % in Water (Syg) 50 ML SYRINGE IVP PRN (13:29)
[2019-12-20] MEDS ORDERED: Ringers Solution, Lactated 1,000 ML IVC SCH (13:30)
[2019-12-20] MEDS ORDERED: Ipratropium/Albuterol Neb 3 ML IH PRN (13:31)
[2019-12-20] MEDS: *HR* Heparin 5,000 UNIT/ML VIAL SQ SCH (16:10)
[2019-12-20] MEDS: Pantoprazole 40 MG VIAL IVP SCH (16:10)
[2019-12-20] MEDS: Insulin LISPRO 300 UNITS/3 ML VIAL SQ SCH ×2 (16:54→23:54)
[2019-12-20] MEDS: Metoclopramide 10 MG/2 ML VIAL IVP PRN (19:37)
[2019-12-21 02:15] LABS: Red Cell Distribution Width 15.3 % (11.5-14.5)
[2019-12-21 02:17] LABS: Basophils % 0.7 %; Eosinophils % 1.4 %; Hematocrit 35.8 % (35.3-44.9); Hemoglobin 11.8 g/dL (11.5-15.4); Immature Granulocytes % 0.7 % (0-4); Lymphocytes # 0.7 K/mcL (0.6-4.6); Lymphocytes % 51.4 %; Mean Corpuscular Hemoglobin 35.8 pg (28.0-33.3); Mean Corpuscular Volume 108.5 fL (83.0-100.0); Mean Platelet Volume 11.4 fL (9.4-12.4); Monocytes # 0.2 K/mcL (0.0-1.3); Neutrophils # 0.5 K/mcL (1.6-8.9); Platelet Count 138 K/mcL (140-400); Segmented Neutrophils % 33.8 %; White Blood Count 1.4 K/mcL (4.3-11.1)
[2019-12-21 02:20] LABS: INR 1.2; Prothrombin Time 13.1 Seconds (9.4-12.1)
[2019-12-21 02:23] LABS: Activated Partial Thrombo Time 26.4 Seconds (26.0-36.0)
[2019-12-21 02:24] LABS: BUN/Creatinine Ratio 14 (6-26); Blood Urea Nitrogen 15 mg/dL (6-20); Calcium 9.2 mg/dL (8.6-10.3); Carbon Dioxide 25 mEq/L (23-29); Chloride 101 mEq/L (98-107); Glucose 148 mg/dL (70-105); Magnesium 1.7 mg/dL (1.6-2.6); Osmolality,Calculated 286 (280-300); Phosphorous 2.8 mg/dL (2.7-4.5); Potassium 3.7 mEq/L (3.5-5.1); Sodium 136 mEq/L (136-145); eGFR For African Americans > 60 (> 60); eGFR For Non-African Americans 51 (> 60)
[2019-12-21 03:05] LABS: Platelet Estimate Normal (Normal); Reactive Lymphocytes Present (Not Present)
[2019-12-21 03:06] LABS: Anisocytosis 1+ (Not Present); Polychromasia 1+ (Not Present)
[2019-12-21] MEDS: *HR* Heparin 5,000 UNIT/ML VIAL SQ SCH ×2 (05:25→18:19)
[2019-12-21] MEDS: Insulin LISPRO 300 UNITS/3 ML VIAL SQ SCH ×4 (05:26→23:58)
[2019-12-21] MEDS: Pantoprazole 40 MG VIAL IVP SCH (07:54)
[2019-12-21] MEDS ORDERED: 0.9 % Sodium Chloride 1,000 ML IVC SCH (14:00)
[2019-12-21] MEDS: 0.9 % Sodium Chloride 1,000 ML IVC SCH ×2 (14:59→23:52)
[2019-12-21] MEDS: Metoclopramide 10 MG/2 ML VIAL IVP PRN (20:31)
[2019-12-22] MEDS: *HR* Heparin 5,000 UNIT/ML VIAL SQ SCH ×2 (05:16→17:49)
[2019-12-22] MEDS: Insulin LISPRO 300 UNITS/3 ML VIAL SQ SCH ×3 (05:24→18:05)
[2019-12-22] MEDS: Pantoprazole 40 MG VIAL IVP SCH (07:18)
[2019-12-22] MEDS: 0.9 % Sodium Chloride 1,000 ML IVC SCH ×2 (07:22→15:07)
[2019-12-22] MEDS: Metoclopramide 10 MG/2 ML VIAL IVP PRN (08:03)
[2019-12-22 10:15] LABS: Hematocrit 34.4 % (35.3-44.9); Hemoglobin 11.6 g/dL (11.5-15.4); Mean Corpuscular HGB Conc 33.7 g/dL (31.6-35.5); Mean Corpuscular Hemoglobin 36.7 pg (28.0-33.3); Mean Corpuscular Volume 108.9 fL (83.0-100.0); Mean Platelet Volume 11.2 fL (9.4-12.4); Platelet Count 148 K/mcL (140-400); Red Blood Count 3.16 M/mcL (3.82-4.97); Red Cell Distribution Width 15.4 % (11.5-14.5)
[2019-12-22 10:19] LABS: White Blood Count 2.7 K/mcL (4.3-11.1)
[2019-12-22 10:34] LABS: BUN/Creatinine Ratio 15 (6-26); Blood Urea Nitrogen 13 mg/dL (6-20); Calcium 8.4 mg/dL (8.6-10.3); Carbon Dioxide 21 mEq/L (23-29); Chloride 104 mEq/L (98-107); Glucose 175 mg/dL (70-105); Osmolality,Calculated 290 (280-300); Potassium 3.2 mEq/L (3.5-5.1); Sodium 138 mEq/L (136-145); eGFR For African Americans > 60 (> 60); eGFR For Non-African Americans > 60 (> 60)
[2019-12-22 11:18] LABS: Lymphocytes # 1.5 K/mcL (0.6-4.6); Monocytes # 0.3 K/mcL (0.0-1.3); Neutrophils # 0.9 K/mcL (1.6-8.9); Platelet Clumps Few (Not Present); Reactive Lymphocytes Present (Not Present); Toxic Granulation Present (Not Present)
[2019-12-22 11:19] LABS: Anisocytosis 1+ (Not Present); Platelet Estimate Normal (Normal); Polychromasia 1+ (Not Present); Toxic Vacuolation Present (Not Present)
[2019-12-22] MEDS: Latanoprost 2.5 ML BOTTLE BOTH EYES SCH (21:53)
[2019-12-23] MEDS: Insulin LISPRO 300 UNITS/3 ML VIAL SQ SCH ×4 (00:24→17:58)
[2019-12-23] MEDS: Metoclopramide 10 MG/2 ML VIAL IVP PRN (02:38)
[2019-12-23] MEDS: 0.9 % Sodium Chloride 1,000 ML IVC SCH ×4 (02:40→21:27)
[2019-12-23 04:01] LABS: Basophils % 0.4 %; Eosinophils % 0.4 %; Hematocrit 33.7 % (35.3-44.9); Hemoglobin 10.9 g/dL (11.5-15.4); Immature Granulocytes % 1.2 % (0-4); Lymphocytes # 1.2 K/mcL (0.6-4.6); Lymphocytes % 46.2 %; Mean Corpuscular HGB Conc 32.3 g/dL (31.6-35.5); Mean Corpuscular Hemoglobin 35.5 pg (28.0-33.3); Mean Corpuscular Volume 109.8 fL (83.0-100.0); Mean Platelet Volume 11.4 fL (9.4-12.4); Monocytes # 0.5 K/mcL (0.0-1.3); Monocytes % 19.7 %; Neutrophils # 0.8 K/mcL (1.6-8.9); Nucleated Red Blood Cells 1.2 /100 WBC (0); Platelet Count 155 K/mcL (140-400); Red Blood Count 3.07 M/mcL (3.82-4.97); Red Cell Distribution Width 15.4 % (11.5-14.5); Segmented Neutrophils % 32.1 %; White Blood Count 2.5 K/mcL (4.3-11.1)
[2019-12-23 04:21] LABS: BUN/Creatinine Ratio 16 (6-26); Blood Urea Nitrogen 13 mg/dL (6-20); Calcium 8.4 mg/dL (8.6-10.3); Carbon Dioxide 23 mEq/L (23-29); Chloride 107 mEq/L (98-107); Glucose 153 mg/dL (70-105); Osmolality,Calculated 299 (280-300); Potassium 3.1 mEq/L (3.5-5.1); Sodium 143 mEq/L (136-145); eGFR For African Americans > 60 (> 60); eGFR For Non-African Americans > 60 (> 60)
[2019-12-23 04:51] LABS: Platelet Estimate Normal (Normal)
[2019-12-23 04:52] LABS: Anisocytosis 1+ (Not Present); Polychromasia 1+ (Not Present)
[2019-12-23] MEDS: *HR* Heparin 5,000 UNIT/ML VIAL SQ SCH (05:47)
[2019-12-23] MEDS: Pantoprazole 40 MG VIAL IVP SCH (07:48)
[2019-12-23] MEDS: Metoclopramide 10 MG/2 ML VIAL IVP SCH (17:13)
[2019-12-23] MEDS: Latanoprost 2.5 ML BOTTLE BOTH EYES SCH (20:08)
[2019-12-24] MEDS: Insulin LISPRO 300 UNITS/3 ML VIAL SQ SCH ×4 (00:30→17:54)
[2019-12-24] MEDS: Metoclopramide 10 MG/2 ML VIAL IVP SCH ×3 (00:31→18:15)
[2019-12-24 06:39] LABS: Hematocrit 31.5 % (35.3-44.9); Hemoglobin 10.4 g/dL (11.5-15.4); Immature Granulocytes % 4.4 % (0-4); Lymphocytes # 1.5 K/mcL (0.6-4.6); Lymphocytes % 36.8 %; Mean Corpuscular Hemoglobin 35.4 pg (28.0-33.3); Mean Corpuscular Volume 107.1 fL (83.0-100.0); Mean Platelet Volume 11.1 fL (9.4-12.4); Monocytes # 0.6 K/mcL (0.0-1.3); Monocytes % 14.6 %; Neutrophils # 1.7 K/mcL (1.6-8.9); Nucleated Red Blood Cells 1.2 /100 WBC (0); Platelet Count 164 K/mcL (140-400); Red Blood Count 2.94 M/mcL (3.82-4.97); Red Cell Distribution Width 14.9 % (11.5-14.5); Segmented Neutrophils % 42.2 %
[2019-12-24 06:41] LABS: White Blood Count 4.1 K/mcL (4.3-11.1)
[2019-12-24 06:55] LABS: BUN/Creatinine Ratio 10 (6-26); Blood Urea Nitrogen 7 mg/dL (6-20); Calcium 7.7 mg/dL (8.6-10.3); Carbon Dioxide 22 mEq/L (23-29); Chloride 107 mEq/L (98-107); Glucose 156 mg/dL (70-105); Osmolality,Calculated 285 (280-300); Potassium 2.8 mEq/L (3.5-5.1); Sodium 137 mEq/L (136-145); eGFR For African Americans > 60 (> 60); eGFR For Non-African Americans > 60 (> 60)
[2019-12-24 06:58] LABS: Polychromasia 1+ (Not Present)
[2019-12-24 06:59] LABS: Anisocytosis 1+ (Not Present); Platelet Estimate Normal (Normal); Reactive Lymphocytes Present (Not Present)
[2019-12-24] MEDS ORDERED: Potassium Chloride 40 MEQ, Lidocaine 1% 2 ML in 0.9 % Sodium Chloride 500 ML IVPB ONE ×2 (07:54→17:46)
[2019-12-24] MEDS: Pantoprazole 40 MG VIAL IVP SCH (09:22)
[2019-12-24 10:00] LABS: Adenovirus F 40/41 PCR Not detected (Not detect); Astrovirus PCR Not detected (Not detect); C.difficile Toxin A/B Gene PCR Not detected (Not detect); Campylobacter by PCR Not detected (Not detect); Cryptosporidium by PCR Not detected (Not detect); Cyclospora cayetanensis PCR Not detected (Not detect); E. coli O157 by PCR Not detected (Not detect); Entamoeba histolytica PCR Not detected (Not detect); Enteroaggregative E.coli(EAEC) Not detected (Not detect); Enteropathogenic E.coli(EPEC) Not detected (Not detect); Enterotoxigenic E.coli (ETEC) Not detected (Not detect); Giardia lamblia PCR Not detected (Not detect); Norovirus GI/GII PCR Not detected (Not detect); Plesiomonas shigelloides PCR Not detected (Not detect); Rotavirus A PCR Not detected (Not detect); Salmonella PCR Not detected (Not detect); Sapovirus PCR Not detected (Not detect); Shig/EnteroinvasiveE coli EIEC Not detected (Not detect); Shigalike tox-prod E coli STEC Not detected (Not detect); Vibrio PCR Not detected (Not detect); Vibrio cholerae PCR Not detected (Not detect); Yersinia enterocolitica PCR Not detected (Not detect)
[2019-12-24] MEDS: 0.9 % Sodium Chloride 1,000 ML IVC SCH ×3 (17:58→23:59)
[2019-12-24] MEDS: Latanoprost 2.5 ML BOTTLE BOTH EYES SCH (21:36)
[2019-12-25] MEDS: Ondansetron 4 MG/2 ML VIAL IVP PRN ×3 (00:25→21:56)
[2019-12-25] MEDS: Insulin LISPRO 300 UNITS/3 ML VIAL SQ SCH ×4 (00:31→17:14)
[2019-12-25 07:58] LABS: Hematocrit 30.5 % (35.3-44.9); Hemoglobin 10.3 g/dL (11.5-15.4); Mean Corpuscular HGB Conc 33.8 g/dL (31.6-35.5); Mean Corpuscular Volume 106.6 fL (83.0-100.0); Nucleated Red Blood Cells 0.8 /100 WBC (0); Platelet Count 174 K/mcL (140-400); Red Blood Count 2.86 M/mcL (3.82-4.97); Red Cell Distribution Width 15.1 % (11.5-14.5); White Blood Count 5.2 K/mcL (4.3-11.1)
[2019-12-25 08:16] LABS: BUN/Creatinine Ratio 5 (6-26); Blood Urea Nitrogen 4 mg/dL (6-20); Calcium 7.7 mg/dL (8.6-10.3); Carbon Dioxide 23 mEq/L (23-29); Chloride 106 mEq/L (98-107); Glucose 151 mg/dL (70-105); Osmolality,Calculated 282 (280-300); Potassium 2.7 mEq/L (3.5-5.1); Sodium 136 mEq/L (136-145); eGFR For African Americans > 60 (> 60); eGFR For Non-African Americans > 60 (> 60)
[2019-12-25 08:24] LABS: Lymphocytes # 2.1 K/mcL (0.6-4.6); Monocytes # 0.4 K/mcL (0.0-1.3); Neutrophils # 2.7 K/mcL (1.6-8.9); Platelet Estimate Normal (Normal)
[2019-12-25] MEDS ORDERED: Potassium Chloride 40 MEQ, Lidocaine 1% 2 ML in 0.9 % Sodium Chloride 500 ML IVPB ONE ×2 (09:12→17:33)
[2019-12-25] MEDS: Pantoprazole 40 MG VIAL IVP SCH (10:22)
[2019-12-25 17:31] LABS: Magnesium 1.6 mg/dL (1.6-2.6); Potassium 2.9 mEq/L (3.5-5.1)
[2019-12-25] MEDS: Lurasidone 20 MG TABLET PO SCH (17:44)
[2019-12-25] MEDS: 0.9 % Sodium Chloride 1,000 ML IVC SCH (17:44)
[2019-12-25] MEDS: Latanoprost 2.5 ML BOTTLE BOTH EYES SCH (20:46)
[2019-12-25] MEDS ORDERED: *HR* Promethazine 25 MG/ML VIAL IVP ONE (22:38)
[2019-12-26] MEDS: Insulin LISPRO 300 UNITS/3 ML VIAL SQ SCH ×4 (05:12→17:16)
[2019-12-26 07:45] LABS: Hematocrit 32.4 % (35.3-44.9); Hemoglobin 11.1 g/dL (11.5-15.4); Mean Corpuscular HGB Conc 34.3 g/dL (31.6-35.5); Mean Corpuscular Volume 105.2 fL (83.0-100.0); Nucleated Red Blood Cells 0.3 /100 WBC (0); Platelet Count 206 K/mcL (140-400); Red Blood Count 3.08 M/mcL (3.82-4.97); Red Cell Distribution Width 15.1 % (11.5-14.5); White Blood Count 6.9 K/mcL (4.3-11.1)
[2019-12-26 08:03] LABS: BUN/Creatinine Ratio 5 (6-26); Blood Urea Nitrogen 4 mg/dL (6-20); Calcium 8.1 mg/dL (8.6-10.3); Carbon Dioxide 22 mEq/L (23-29); Chloride 107 mEq/L (98-107); Glucose 152 mg/dL (70-105); Osmolality,Calculated 280 (280-300); Potassium 3.2 mEq/L (3.5-5.1); Sodium 135 mEq/L (136-145); eGFR For African Americans > 60 (> 60); eGFR For Non-African Americans > 60 (> 60)
[2019-12-26] MEDS: Letrozole 2.5 MG TABLET PO SCH (08:10)
[2019-12-26] MEDS: Pantoprazole 40 MG VIAL IVP SCH (08:11)
[2019-12-26 08:21] LABS: Lymphocytes # 2.5 K/mcL (0.6-4.6); Monocytes # 0.6 K/mcL (0.0-1.3); Neutrophils # 3.9 K/mcL (1.6-8.9)
[2019-12-26 08:22] LABS: Platelet Estimate Normal (Normal); Polychromasia 1+ (Not Present)
[2019-12-26] MEDS ORDERED: Potassium Chloride 40 MEQ, Lidocaine 1% 2 ML in 0.9 % Sodium Chloride 500 ML IVPB ONE ×2 (08:54→18:33)
[2019-12-26] MEDS: 0.9 % Sodium Chloride 1,000 ML IVC SCH (11:28)
[2019-12-26] MEDS: Ondansetron 4 MG/2 ML VIAL IVP PRN (15:45)
[2019-12-26] MEDS: Lurasidone 20 MG TABLET PO SCH (15:48)
[2019-12-26] MEDS ORDERED: 0.9 % Sodium Chloride 1,000 ML IVC SCH (18:45)
[2019-12-26] MEDS ORDERED: *HR* OxyCODONE Immed Rel 5 MG TABLET PO ONE (20:11)
[2019-12-26] MEDS: Latanoprost 2.5 ML BOTTLE BOTH EYES SCH (20:50)
[2019-12-27] MEDS: Insulin LISPRO 300 UNITS/3 ML VIAL SQ SCH ×3 (00:16→12:17)
[2019-12-27] MEDS: Ondansetron 4 MG/2 ML VIAL IVP PRN (00:22)
[2019-12-27 06:30] LABS: Hematocrit 32.3 % (35.3-44.9); Mean Corpuscular HGB Conc 34.1 g/dL (31.6-35.5); Mean Corpuscular Hemoglobin 36.1 pg (28.0-33.3); Mean Corpuscular Volume 105.9 fL (83.0-100.0); Mean Platelet Volume 11.1 fL (9.4-12.4); Nucleated Red Blood Cells 0.7 /100 WBC (0); Platelet Count 237 K/mcL (140-400); Red Blood Count 3.05 M/mcL (3.82-4.97); Red Cell Distribution Width 15.2 % (11.5-14.5); White Blood Count 8.6 K/mcL (4.3-11.1)
[2019-12-27 06:44] LABS: BUN/Creatinine Ratio 5 (6-26); Blood Urea Nitrogen 4 mg/dL (6-20); Calcium 8.2 mg/dL (8.6-10.3); Carbon Dioxide 20 mEq/L (23-29); Chloride 108 mEq/L (98-107); Glucose 134 mg/dL (70-105); Osmolality,Calculated 281 (280-300); Potassium 3.3 mEq/L (3.5-5.1); Sodium 136 mEq/L (136-145); eGFR For African Americans > 60 (> 60); eGFR For Non-African Americans > 60 (> 60)
[2019-12-27 07:06] LABS: Anisocytosis 1+ (Not Present); Lymphocytes # 2.6 K/mcL (0.6-4.6); Macrocytosis Present (Not Present); Monocytes # 0.3 K/mcL (0.0-1.3); Neutrophils # 5.3 K/mcL (1.6-8.9); Platelet Estimate Normal (Normal); Polychromasia 1+ (Not Present); Smudge Cells Present (Not Present); Toxic Granulation Present (Not Present)
[2019-12-27] MEDS ORDERED: Potassium Chloride 40 MEQ, Lidocaine 1% 2 ML in 0.9 % Sodium Chloride 500 ML IVPB ONE (07:24)
[2019-12-27] MEDS: 0.9 % Sodium Chloride 1,000 ML IVC SCH (07:31)
[2019-12-27] MEDS: Letrozole 2.5 MG TABLET PO SCH (08:21)
[2019-12-27] MEDS ORDERED: Ondansetron ODT 4 MG TAB.RAPDIS PO SCH (09:00)
[2019-12-27 15:14] VITALS: BP 136/89
== END 2019-12-27 17:58 | disposition other institution (70) | DRG 247 ==
LOC: 3BNU 10:21 → EMEROOARM 10:21 → 3BNU 14:17
PROVIDERS: ADMIT Internal Medicine; ATTEND Internal Medicine

== ENCOUNTER 2019-12-31 16:24 | Inpatient (IN) ==
[2019-12-31] MEDS ORDERED: 0.9 % Sodium Chloride 1,000 ML IVC ONE (16:28)
[2019-12-31] MEDS ORDERED: Ondansetron 4 MG/2 ML VIAL IVP ONE (16:28)
[2019-12-31] MEDS ORDERED: Isovue-370 500 ML BOTTLE IVP ONE (16:29)
[2019-12-31 16:52] LABS: Bilirubin,Urine Small (Negative); Blood,Urine Trace (Negative); Clarity,Urine Cloudy (Clear); Color,Urine Dark Yellow (Yellow); Glucose,Urine (UA) Normal (Normal); Ketones,Urine Trace mg/dL (Negative); Leukocyte Esterase,Urine Small (Negative); Nitrite,Urine Positive (Negative); Protein,Urine 100 mg/dL (Neg-Trace); Specific Gravity,Urine 1.027 (1.010-1.025); Urobilinogen,Urine Normal (Normal)
[2019-12-31 16:55] LABS: Bacteria,Urine Few per hpf (None-Few); Squamous Epithelial Cell,Urine Many per lpf (None-Few); WBC,Urine 50-100 per hpf (0-3)
[2019-12-31] MEDS ORDERED: cefTRIAXone 1,000 MG in Water for inj. (sterile) 10 ML IVP ONE (17:25)
[2019-12-31 17:32] LABS: Basophils % 0.7 %; Eosinophils % 0.2 %; Hematocrit 37.6 % (35.3-44.9); Hemoglobin 12.4 g/dL (11.5-15.4); Immature Granulocytes % 0.8 % (0-4); Lymphocytes # 1.4 K/mcL (0.6-4.6); Lymphocytes % 22.9 %; Mean Corpuscular Hemoglobin 35.2 pg (28.0-33.3); Mean Corpuscular Volume 106.8 fL (83.0-100.0); Monocytes # 0.5 K/mcL (0.0-1.3); Monocytes % 8.6 %; Neutrophils # 4.1 K/mcL (1.6-8.9); Nucleated Red Blood Cells 1.3 /100 WBC (0); Platelet Count 372 K/mcL (140-400); Red Blood Count 3.52 M/mcL (3.82-4.97); Red Cell Distribution Width 15.1 % (11.5-14.5); Segmented Neutrophils % 66.8 %; White Blood Count 6.1 K/mcL (4.3-11.1)
[2019-12-31 17:53] LABS: Albumin 3.7 g/dL (3.5-5.7); Albumin/Globulin Ratio 1.1 (1.1-2.2); Bilirubin,Direct 0.2 mg/dL (0.0-0.2); Bilirubin,Indirect 0.5 mg/dL (0.0-1.0); Bilirubin,Total 0.7 mg/dL (0.3-1.0); Calcium 8.8 mg/dL (8.6-10.3); Globulin 3.4 g/dL (2.4-3.5); Total Protein 7.1 g/dL (6.4-8.9)
[2019-12-31] MEDS ORDERED: Vancomycin 1,500 MG/265 ML IV.SOLN IVPB ONE (19:11)
[2019-12-31] MEDS ORDERED: Piperacillin/Tazobactam 3.375 GM in 0.9 % Sodium Chloride Mini Bag 100 ML IVPB ONE (19:11)
[2019-12-31] MEDS ORDERED: Naloxone 0.4 MG/ML INJ IVP PRN (19:40)
[2019-12-31] MEDS ORDERED: *HR* Dextrose 50 % in Water (Syg) 50 ML SYRINGE IVP PRN (19:43)
[2019-12-31] MEDS ORDERED: D5% in Water 1,000 ML IVC PRN (19:43)
[2019-12-31] MEDS ORDERED: Dextrose Gel 15 GM/37.5 ML TUBE PO PRN ×2 (19:43)
[2019-12-31] MEDS: Insulin LISPRO 300 UNITS/3 ML VIAL SQ SCH (23:38)
[2020-01-01 00:47] LABS: Mean Corpuscular Volume 105.9 fL (83.0-100.0); Mean Platelet Volume 10.9 fL (9.4-12.4)
[2020-01-01 00:49] LABS: Hematocrit 32.5 % (35.3-44.9); Hemoglobin 10.7 g/dL (11.5-15.4); Immature Platelets 7.2 % (1.1-6.1); Mean Corpuscular HGB Conc 32.9 g/dL (31.6-35.5); Mean Corpuscular Hemoglobin 34.9 pg (28.0-33.3); Nucleated Red Blood Cells 0.7 /100 WBC (0); Platelet Count 287 K/mcL (140-400); Red Blood Count 3.07 M/mcL (3.82-4.97); Red Cell Distribution Width 14.8 % (11.5-14.5); White Blood Count 5.8 K/mcL (4.3-11.1)
[2020-01-01] MEDS ORDERED: Ringers Solution, Lactated 1,000 ML IVC SCH (01:00)
[2020-01-01 01:04] LABS: Alanine Aminotransferase 8 Units/L (7-52); Albumin 3.1 g/dL (3.5-5.7); Albumin/Globulin Ratio 1.1 (1.1-2.2); Alkaline Phosphatase 66 Units/L (34-104); Aspartate Amino Transferase 12 Units/L (13-39); BUN/Creatinine Ratio 13 (6-26); Bilirubin,Total 0.7 mg/dL (0.3-1.0); Blood Urea Nitrogen 12 mg/dL (6-20); Calcium 7.9 mg/dL (8.6-10.3); Carbon Dioxide 27 mEq/L (23-29); Chloride 94 mEq/L (98-107); Globulin 2.9 g/dL (2.4-3.5); Glucose 145 mg/dL (70-105); Osmolality,Calculated 280 (280-300); Potassium 2.9 mEq/L (3.5-5.1); Sodium 134 mEq/L (136-145); eGFR For African Americans > 60 (> 60); eGFR For Non-African Americans > 60 (> 60)
[2020-01-01 01:33] LABS: Anisocytosis 1+ (Not Present); Lymphocytes # 1.4 K/mcL (0.6-4.6); Macrocytosis Present (Not Present); Monocytes # 0.4 K/mcL (0.0-1.3); Neutrophils # 4.1 K/mcL (1.6-8.9); Platelet Estimate Normal (Normal); Polychromasia 1+ (Not Present); Toxic Granulation Present (Not Present)
[2020-01-01] MEDS: *HR* Heparin 5,000 UNIT/ML VIAL SQ SCH ×2 (05:35→18:07)
[2020-01-01] MEDS: Insulin LISPRO 300 UNITS/3 ML VIAL SQ SCH ×4 (07:27→23:43)
[2020-01-01] MEDS ORDERED: Ondansetron 4 MG/2 ML VIAL IVP PRN (07:52)
[2020-01-01] MEDS ORDERED: 0.9 % Sodium Chloride w KCl 40 MEQ/1,000 ML MLS IVC SCH (08:00)
[2020-01-01] MEDS ORDERED: cefTRIAXone 1,000 MG in Water for inj. (sterile) 10 ML IVP SCH (09:00)
[2020-01-01] MEDS: Pantoprazole 40 MG VIAL IVP SCH (09:11)
[2020-01-01] MEDS ORDERED: Azithromycin 500 MG in 0.9 % Sodium Chloride 250 ML IVPB SCH (12:00)
[2020-01-01] MEDS: Piperacillin/Tazobactam 3.375 GM in 0.9 % Sodium Chloride Mini Bag 100 ML IVPB SCH ×2 (15:40→23:38)
[2020-01-02] MEDS: *HR* Heparin 5,000 UNIT/ML VIAL SQ SCH ×2 (05:34→16:58)
[2020-01-02] MEDS: Insulin LISPRO 300 UNITS/3 ML VIAL SQ SCH ×4 (05:34→23:52)
[2020-01-02 08:19] LABS: Basophils % 0.5 %; Eosinophils % 0.3 %; Hemoglobin 9.4 g/dL (11.5-15.4); Immature Granulocytes % 0.7 % (0-4); Lymphocytes # 1.5 K/mcL (0.6-4.6); Lymphocytes % 25.8 %; Mean Corpuscular HGB Conc 32.4 g/dL (31.6-35.5); Mean Corpuscular Hemoglobin 35.2 pg (28.0-33.3); Mean Corpuscular Volume 108.6 fL (83.0-100.0); Mean Platelet Volume 10.1 fL (9.4-12.4); Monocytes # 0.3 K/mcL (0.0-1.3); Monocytes % 5.6 %; Neutrophils # 3.8 K/mcL (1.6-8.9); Platelet Count 303 K/mcL (140-400); Red Blood Count 2.67 M/mcL (3.82-4.97); Red Cell Distribution Width 15.5 % (11.5-14.5); Segmented Neutrophils % 67.1 %; White Blood Count 5.7 K/mcL (4.3-11.1)
[2020-01-02 08:39] LABS: BUN/Creatinine Ratio 8 (6-26); Blood Urea Nitrogen 6 mg/dL (6-20); Calcium 7.1 mg/dL (8.6-10.3); Carbon Dioxide 28 mEq/L (23-29); Chloride 100 mEq/L (98-107); Glucose 122 mg/dL (70-105); Magnesium 1.3 mg/dL (1.6-2.6); Osmolality,Calculated 283 (280-300); Phosphorous 2.6 mg/dL (2.7-4.5); Sodium 137 mEq/L (136-145); eGFR For African Americans > 60 (> 60); eGFR For Non-African Americans > 60 (> 60)
[2020-01-02] MEDS: Piperacillin/Tazobactam 3.375 GM in 0.9 % Sodium Chloride Mini Bag 100 ML IVPB SCH (08:44)
[2020-01-02] MEDS: Pantoprazole 40 MG VIAL IVP SCH (08:44)
[2020-01-02 08:45] LABS: Anisocytosis 1+ (Not Present); Platelet Estimate Normal (Normal)
[2020-01-02] MEDS ORDERED: Magnesium Sulfate 1 GM/102 ML PIGGYBACK IVPB ONE (13:09)
[2020-01-02] MEDS: cefTRIAXone 1,000 MG in Water for inj. (sterile) 10 ML IVP SCH (16:56)
[2020-01-02] MEDS ORDERED: Chloraseptic Spray 177 ML BOTTLE MM PRN (22:59)
[2020-01-03 04:59] LABS: Basophils % 0.6 %; Eosinophils % 0.4 %; Hematocrit 28.7 % (35.3-44.9); Hemoglobin 9.4 g/dL (11.5-15.4); Immature Granulocytes % 0.6 % (0-4); Lymphocytes # 1.9 K/mcL (0.6-4.6); Lymphocytes % 35.8 %; Mean Corpuscular HGB Conc 32.8 g/dL (31.6-35.5); Mean Corpuscular Hemoglobin 35.9 pg (28.0-33.3); Mean Corpuscular Volume 109.5 fL (83.0-100.0); Monocytes # 0.4 K/mcL (0.0-1.3); Monocytes % 8.1 %; Neutrophils # 2.8 K/mcL (1.6-8.9); Platelet Count 282 K/mcL (140-400); Red Blood Count 2.62 M/mcL (3.82-4.97); Red Cell Distribution Width 15.8 % (11.5-14.5); Segmented Neutrophils % 54.5 %; White Blood Count 5.2 K/mcL (4.3-11.1)
[2020-01-03 05:03] LABS: INR 1.1; Prothrombin Time 12.6 Seconds (9.4-12.1)
[2020-01-03 05:13] LABS: BUN/Creatinine Ratio 4 (6-26); Blood Urea Nitrogen 3 mg/dL (6-20); Calcium 7.1 mg/dL (8.6-10.3); Carbon Dioxide 26 mEq/L (23-29); Chloride 102 mEq/L (98-107); Glucose 93 mg/dL (70-105); Magnesium 1.6 mg/dL (1.6-2.6); Osmolality,Calculated 284 (280-300); Phosphorous 3.4 mg/dL (2.7-4.5); Potassium 2.8 mEq/L (3.5-5.1); Sodium 139 mEq/L (136-145); eGFR For African Americans > 60 (> 60); eGFR For Non-African Americans > 60 (> 60)
[2020-01-03 05:15] LABS: Platelet Estimate Normal (Normal)
[2020-01-03] MEDS: *HR* Heparin 5,000 UNIT/ML VIAL SQ SCH ×2 (05:45→18:10)
[2020-01-03] MEDS: Insulin LISPRO 300 UNITS/3 ML VIAL SQ SCH ×3 (05:50→18:09)
[2020-01-03] MEDS: cefTRIAXone 1,000 MG in Water for inj. (sterile) 10 ML IVP SCH (09:21)
[2020-01-03] MEDS: Pantoprazole 40 MG VIAL IVP SCH (09:22)
[2020-01-03] MEDS ORDERED: *HR* Midazolam HCl 2 MG/2 ML VIAL ONE (09:49)
[2020-01-03] MEDS ORDERED: *HR* FentaNYL (PF) 100 MCG/2 ML VIAL ONE ×2 (09:49→11:03)
[2020-01-03] MEDS ORDERED: *HR* Propofol 200 MG/20 ML VIAL IVP ONE (09:49)
[2020-01-03] MEDS ORDERED: Lidocaine HCL 4 ML Topical Solution (Laryng-O-Jet Kit Sterile Pak) TP ONE (09:54)
[2020-01-03] MEDS ORDERED: *HR* OxyCODONE Immed Rel 5 MG TABLET PO PRN ×2 (10:25→11:53)
[2020-01-03] MEDS ORDERED: *HR* HYDROmorphone 2 MG TABLET PO PRN (10:25)
[2020-01-03] MEDS ORDERED: Acetaminophen IV 1,000 MG/100 ML INFUS..BTL IVPB ONE ×2 (10:25→11:53)
[2020-01-03] MEDS ORDERED: *HR* Promethazine 25 MG/ML VIAL IVP PRN ×2 (10:25→11:53)
[2020-01-03] MEDS ORDERED: *HR* Labetalol 20 MG/4 ML SYRINGE IVP PRN ×2 (10:25→11:53)
[2020-01-03] MEDS ORDERED: Famotidine 20 MG/2 ML VIAL IVP ONE ×2 (10:25→11:53)
[2020-01-03] MEDS ORDERED: *HR* HYDROmorphone (PF) 1 MG/ML SYRINGE IVP PRN ×2 (10:25→11:53)
[2020-01-03] MEDS ORDERED: Ketorolac 30 MG/ML VIAL ONE (11:23)
[2020-01-03] MEDS ORDERED: Dextrose Gel 15 GM/37.5 ML TUBE PO PRN ×2 (11:53)
[2020-01-03] MEDS ORDERED: Naloxone 0.4 MG/ML INJ IVP PRN (11:53)
[2020-01-03] MEDS ORDERED: D5% in Water 1,000 ML IVC PRN (11:53)
[2020-01-03] MEDS ORDERED: *HR* Dextrose 50 % in Water (Syg) 50 ML SYRINGE IVP PRN (11:53)
[2020-01-03] MEDS ORDERED: Chloraseptic Spray 177 ML BOTTLE MM PRN (11:53)
[2020-01-03] MEDS ORDERED: *HR* FentaNYL PATCH 12 MCG PATCH TD SCH (17:15)
[2020-01-04] MEDS: Insulin LISPRO 300 UNITS/3 ML VIAL SQ SCH ×4 (00:55→18:45)
[2020-01-04 03:16] LABS: Basophils % 0.4 %; Monocytes % 4.3 %; Nucleated Red Blood Cells 0.4 /100 WBC (0); Red Cell Distribution Width 15.7 % (11.5-14.5)
[2020-01-04 03:18] LABS: Hematocrit 36.3 % (35.3-44.9); Immature Granulocytes % 0.9 % (0-4); Immature Platelets 3.3 % (1.1-6.1); Lymphocytes # 1.4 K/mcL (0.6-4.6); Lymphocytes % 26.7 %; Mean Corpuscular HGB Conc 33.1 g/dL (31.6-35.5); Mean Corpuscular Hemoglobin 34.7 pg (28.0-33.3); Mean Corpuscular Volume 104.9 fL (83.0-100.0); Monocytes # 0.2 K/mcL (0.0-1.3); Platelet Count 331 K/mcL (140-400); Red Blood Count 3.46 M/mcL (3.82-4.97); Segmented Neutrophils % 67.7 %; White Blood Count 5.4 K/mcL (4.3-11.1)
[2020-01-04 03:30] LABS: BUN/Creatinine Ratio 7 (6-26); Blood Urea Nitrogen 5 mg/dL (6-20); Calcium 7.5 mg/dL (8.6-10.3); Carbon Dioxide 21 mEq/L (23-29); Chloride 101 mEq/L (98-107); Glucose 189 mg/dL (70-105); Magnesium 1.4 mg/dL (1.6-2.6); Osmolality,Calculated 282 (280-300); Phosphorous 2.3 mg/dL (2.7-4.5); Potassium 3.7 mEq/L (3.5-5.1); Sodium 135 mEq/L (136-145); eGFR For African Americans > 60 (> 60); eGFR For Non-African Americans > 60 (> 60)
[2020-01-04 03:59] LABS: Neutrophils # 3.7 K/mcL (1.6-8.9)
[2020-01-04 04:02] LABS: Platelet Estimate Normal (Normal)
[2020-01-04] MEDS: *HR* Heparin 5,000 UNIT/ML VIAL SQ SCH ×2 (05:13→18:45)
[2020-01-04] MEDS ORDERED: Azithromycin 500 MG in 0.9 % Sodium Chloride 250 ML IVPB ONE (08:34)
[2020-01-04] MEDS: cefTRIAXone 1,000 MG in Water for inj. (sterile) 10 ML IVP SCH (09:24)
[2020-01-04] MEDS: Pantoprazole 40 MG VIAL IVP SCH (09:24)
[2020-01-04] MEDS ORDERED: Ringers Solution, Lactated 500 ML IVC ONE (12:02)
[2020-01-04] MEDS: Latanoprost 2.5 ML BOTTLE BOTH EYES SCH (20:28)
[2020-01-05] MEDS: Insulin LISPRO 300 UNITS/3 ML VIAL SQ SCH ×5 (01:03→20:49)
[2020-01-05 03:41] LABS: BUN/Creatinine Ratio 8 (6-26); Blood Urea Nitrogen 7 mg/dL (6-20); Calcium 7.4 mg/dL (8.6-10.3); Carbon Dioxide 16 mEq/L (23-29); Chloride 98 mEq/L (98-107); Glucose 171 mg/dL (70-105); Osmolality,Calculated 272 (280-300); Phosphorous 2.5 mg/dL (2.7-4.5); Potassium 4.6 mEq/L (3.5-5.1); Sodium 130 mEq/L (136-145); eGFR For African Americans > 60 (> 60); eGFR For Non-African Americans > 60 (> 60)
[2020-01-05] MEDS: *HR* Heparin 5,000 UNIT/ML VIAL SQ SCH ×2 (05:16→17:20)
[2020-01-05 07:56] LABS: Basophils # 0.1 K/mcL (0.0-0.2); Hematocrit 39.5 % (35.3-44.9); Hemoglobin 13.1 g/dL (11.5-15.4); Mean Corpuscular HGB Conc 33.2 g/dL (31.6-35.5); Mean Corpuscular Hemoglobin 35.9 pg (28.0-33.3); Mean Corpuscular Volume 108.2 fL (83.0-100.0); Mean Platelet Volume 10.1 fL (9.4-12.4); Nucleated Red Blood Cells 0.2 /100 WBC (0); Platelet Count 351 K/mcL (140-400); Red Blood Count 3.65 M/mcL (3.82-4.97); Red Cell Distribution Width 15.2 % (11.5-14.5)
[2020-01-05 07:59] LABS: White Blood Count 8.9 K/mcL (4.3-11.1)
[2020-01-05 08:26] LABS: Eosinophils # 0.1 K/mcL (0.0-0.6); Lymphocytes # 1.4 K/mcL (0.6-4.6); Monocytes # 0.2 K/mcL (0.0-1.3); Neutrophils # 7.1 K/mcL (1.6-8.9); Platelet Estimate Normal (Normal); Reactive Lymphocytes Present (Not Present)
[2020-01-05 08:27] LABS: Polychromasia 1+ (Not Present)
[2020-01-05] MEDS: 0.9 % Sodium Chloride 1,000 ML IVC SCH ×2 (10:35→20:46)
[2020-01-05] MEDS: Azithromycin 500 MG in 0.9 % Sodium Chloride 250 ML IVPB SCH (10:38)
[2020-01-05] MEDS: cefTRIAXone 1,000 MG in Water for inj. (sterile) 10 ML IVP SCH (10:40)
[2020-01-05] MEDS: Pantoprazole 40 MG VIAL IVP SCH (10:41)
[2020-01-05] MEDS: Letrozole 2.5 MG TABLET PO SCH (10:48)
[2020-01-05] MEDS ORDERED: 0.9 % Sodium Chloride 500 ML IVC ONE ×2 (11:10→17:13)
[2020-01-05] MEDS ORDERED: Vancomycin 1,500 MG/265 ML IV.SOLN IVPB ONE (11:20)
[2020-01-05 11:28] LABS: Sodium, Urine 11.1 mEq/L
[2020-01-05] MEDS ORDERED: Isovue-370 500 ML BOTTLE IVP ONE ×2 (13:15)
[2020-01-05 14:34] LABS: Alanine Aminotransferase 6 Units/L (7-52); Albumin 2.9 g/dL (3.5-5.7); Alkaline Phosphatase 67 Units/L (34-104); Aspartate Amino Transferase 10 Units/L (13-39); BUN/Creatinine Ratio 11 (6-26); Bilirubin,Total 0.7 mg/dL (0.3-1.0); Blood Urea Nitrogen 10 mg/dL (6-20); Calcium 7.4 mg/dL (8.6-10.3); Carbon Dioxide 25 mEq/L (23-29); Chloride 98 mEq/L (98-107); Globulin 2.9 g/dL (2.4-3.5); Glucose 230 mg/dL (70-105); Osmolality,Calculated 278 (280-300); Potassium 3.7 mEq/L (3.5-5.1); Sodium 131 mEq/L (136-145); Total Protein 5.8 g/dL (6.4-8.9); eGFR For African Americans > 60 (> 60); eGFR For Non-African Americans > 60 (> 60)
[2020-01-05] MEDS ORDERED: Isovue-370 500 ML BOTTLE PO ONE (14:58)
[2020-01-05] MEDS: Lurasidone 20 MG TABLET PO SCH (17:20)
[2020-01-05] MEDS: Piperacillin/Tazobactam 3.375 GM in 0.9 % Sodium Chloride Mini Bag 100 ML IVPB SCH (17:23)
[2020-01-05 17:54] LABS: Hematocrit 37.1 % (35.3-44.9); Hemoglobin 12.2 g/dL (11.5-15.4); Mean Corpuscular HGB Conc 32.9 g/dL (31.6-35.5); Mean Corpuscular Volume 106.3 fL (83.0-100.0); Mean Platelet Volume 10.1 fL (9.4-12.4); Nucleated Red Blood Cells 0.3 /100 WBC (0); Platelet Count 358 K/mcL (140-400); Red Blood Count 3.49 M/mcL (3.82-4.97); Red Cell Distribution Width 15.2 % (11.5-14.5); White Blood Count 7.9 K/mcL (4.3-11.1)
[2020-01-05 18:27] LABS: Eosinophils # 0.2 K/mcL (0.0-0.6); Hypochromasia Present (Not Present); Large Platelets Present (Not Present); Lymphocytes # 1.3 K/mcL (0.6-4.6); Macrocytosis Present (Not Present); Monocytes # 0.2 K/mcL (0.0-1.3); Neutrophils # 6.3 K/mcL (1.6-8.9); Platelet Estimate Normal (Normal)
[2020-01-05 18:28] LABS: Polychromasia 1+ (Not Present)
[2020-01-05] MEDS: Morphine Sulfate ER (12 HR) 15 MG TABLET.ER PO SCH (20:38)
[2020-01-05] MEDS: Latanoprost 2.5 ML BOTTLE BOTH EYES SCH (20:42)
[2020-01-06] MEDS: Vancomycin 1,500 MG/265 ML IV.SOLN IVPB SCH ×2 (00:08→13:26)
[2020-01-06] MEDS: Piperacillin/Tazobactam 3.375 GM in 0.9 % Sodium Chloride Mini Bag 100 ML IVPB SCH ×3 (01:40→16:54)
[2020-01-06] MEDS: 0.9 % Sodium Chloride 1,000 ML IVC SCH ×2 (05:44→07:00)
[2020-01-06] MEDS: *HR* Heparin 5,000 UNIT/ML VIAL SQ SCH ×2 (05:45→17:40)
[2020-01-06 06:45] LABS: Hematocrit 32.1 % (35.3-44.9); Hemoglobin 10.7 g/dL (11.5-15.4); Mean Corpuscular HGB Conc 33.3 g/dL (31.6-35.5); Mean Corpuscular Hemoglobin 35.8 pg (28.0-33.3); Mean Corpuscular Volume 107.4 fL (83.0-100.0); Mean Platelet Volume 10.2 fL (9.4-12.4); Platelet Count 300 K/mcL (140-400); Red Blood Count 2.99 M/mcL (3.82-4.97); Red Cell Distribution Width 14.8 % (11.5-14.5); White Blood Count 9.2 K/mcL (4.3-11.1)
[2020-01-06 07:05] LABS: BUN/Creatinine Ratio 12 (6-26); Blood Urea Nitrogen 9 mg/dL (6-20); Calcium 7.1 mg/dL (8.6-10.3); Carbon Dioxide 24 mEq/L (23-29); Chloride 99 mEq/L (98-107); Glucose 186 mg/dL (70-105); Osmolality,Calculated 276 (280-300); Potassium 3.4 mEq/L (3.5-5.1); Sodium 131 mEq/L (136-145); eGFR For African Americans > 60 (> 60); eGFR For Non-African Americans > 60 (> 60)
[2020-01-06] MEDS: Insulin LISPRO 300 UNITS/3 ML VIAL SQ SCH ×4 (08:15→22:22)
[2020-01-06] MEDS: Pantoprazole 40 MG VIAL IVP SCH (08:16)
[2020-01-06] MEDS: Letrozole 2.5 MG TABLET PO SCH (08:16)
[2020-01-06] MEDS: Morphine Sulfate ER (12 HR) 15 MG TABLET.ER PO SCH ×2 (08:16→22:22)
[2020-01-06 08:24] LABS: Lymphocytes # 1.5 K/mcL (0.6-4.6); Monocytes # 0.6 K/mcL (0.0-1.3); Neutrophils # 7.2 K/mcL (1.6-8.9)
[2020-01-06] MEDS: Azithromycin 500 MG in 0.9 % Sodium Chloride 250 ML IVPB SCH (08:24)
[2020-01-06] MEDS ORDERED: Methylnaltrexone 12 MG/0.6 ML SYRINGE SQ ONE (08:24)
[2020-01-06 08:25] LABS: Platelet Estimate Normal (Normal)
[2020-01-06 09:04] LABS: Hemoglobin 11.6 g/dL (11.5-15.4)
[2020-01-06] MEDS ORDERED: *HR* HYDROmorphone (PF) 1 MG/ML SYRINGE IVP ONE (10:05)
[2020-01-06] MEDS: Ondansetron 4 MG/2 ML VIAL IVP PRN ×2 (10:20→18:01)
[2020-01-06] MEDS ORDERED: *HR* Metoprolol 5 MG/5 ML VIAL IVP ONE ×2 (14:49→17:59)
[2020-01-06] MEDS: Lurasidone 20 MG TABLET PO SCH (17:23)
[2020-01-06] MEDS ORDERED: Ketorolac 15 MG/ML VIAL IVP ONE (17:34)
[2020-01-06] MEDS: Doxycycline 100 MG in 0.9 % Sodium Chloride Mini Bag 100 ML IVPB SCH (17:40)
[2020-01-06] MEDS: *HR* HYDROmorphone (PF) 1 MG/ML SYRINGE IVP PRN (18:01)
[2020-01-06] MEDS ORDERED: *HR* Promethazine 25 MG/ML VIAL IVP PRN (18:34)
[2020-01-06] MEDS ORDERED: Isovue-370 500 ML BOTTLE IVP ONE (19:52)
[2020-01-06] MEDS ORDERED: Acetaminophen IV 1,000 MG/100 ML INFUS..BTL IVPB ONE (20:34)
[2020-01-06] MEDS ORDERED: 0.9 % Sodium Chloride 1,000 ML ONE ×2 (20:54→23:30)
[2020-01-06] MEDS ORDERED: 0.9 % Sodium Chloride 1,000 ML IVC ONE ×2 (20:56→23:23)
[2020-01-06] MEDS: Latanoprost 2.5 ML BOTTLE BOTH EYES SCH (22:22)
[2020-01-06 22:53] LABS: Hematocrit 39.5 % (35.3-44.9); Hemoglobin 12.7 g/dL (11.5-15.4); Mean Corpuscular HGB Conc 32.2 g/dL (31.6-35.5); Mean Corpuscular Hemoglobin 35.1 pg (28.0-33.3); Mean Corpuscular Volume 109.1 fL (83.0-100.0); Mean Platelet Volume 10.4 fL (9.4-12.4); Nucleated Red Blood Cells 2.1 /100 WBC (0); Platelet Count 335 K/mcL (140-400); Red Blood Count 3.62 M/mcL (3.82-4.97); Red Cell Distribution Width 15.7 % (11.5-14.5)
[2020-01-06 22:54] LABS: White Blood Count 4.3 K/mcL (4.3-11.1)
[2020-01-06] MEDS: Phenylephrine 10 MG in 0.9 % Sodium Chloride 250 ML IVC SCH (22:56)
[2020-01-06 22:58] LABS: INR 1.4; Prothrombin Time 15.9 Seconds (9.4-12.1)
[2020-01-06 23:00] LABS: Activated Partial Thrombo Time 25.4 Seconds (26.0-36.0)
[2020-01-06 23:10] LABS: Lymphocytes # 1.4 K/mcL (0.6-4.6); Monocytes # 0.1 K/mcL (0.0-1.3); Neutrophils # 2.6 K/mcL (1.6-8.9)
[2020-01-06 23:12] LABS: Reactive Lymphocytes Present (Not Present)
[2020-01-06 23:18] LABS: Albumin 2.1 g/dL (3.5-5.7); Albumin/Globulin Ratio 0.7 (1.1-2.2); Bilirubin,Total 0.7 mg/dL (0.3-1.0); Calcium 6.8 mg/dL (8.6-10.3); Globulin 2.9 g/dL (2.4-3.5); Magnesium 1.8 mg/dL (1.6-2.6); Potassium 4.6 mEq/L (3.5-5.1)
[2020-01-06] MEDS ORDERED: Sodium Bicarbonate 50 MEQ/50 ML VIAL IVP ONE ×2 (23:31→23:40)
[2020-01-06] MEDS ORDERED: Sodium Bicarbonate 50 MEQ/50 ML VIAL ONE (23:31)
[2020-01-07] MEDS: Piperacillin/Tazobactam 3.375 GM in 0.9 % Sodium Chloride Mini Bag 100 ML IVPB SCH ×4 (00:20→23:45)
[2020-01-07] MEDS ORDERED: *HR* Phenylephrine 10 MG/ML VIAL ONE (00:24)
[2020-01-07] MEDS ORDERED: 0.9 % Sodium Chloride 250 ML ONE (00:25)
[2020-01-07] MEDS: Phenylephrine 10 MG in 0.9 % Sodium Chloride 250 ML IVC SCH (00:30)
[2020-01-07] MEDS: Albumin Human 5% 12.5 GM/250 ML IV.SOLN IVC SCH ×2 (00:56→03:48)
[2020-01-07] MEDS: Norepinephrine 4 MG/254 ML IV.SOLN IVC SCH ×3 (01:08→07:00)
[2020-01-07] MEDS: Phenylephrine 50 MG in 0.9 % Sodium Chloride 250 ML IVC SCH ×3 (01:39→18:34)
[2020-01-07] MEDS ORDERED: 0.9 % Sodium Chloride 1,000 ML IVC ONE (02:03)
[2020-01-07] MEDS ORDERED: Sodium Bicarbonate 150 MEQ in D5% in Water 1,000 ML IVC SCH (02:15)
[2020-01-07] MEDS ORDERED: *HR* Heparin 5,000 UNIT/ML VIAL IVP PRN ×2 (02:42)
[2020-01-07] MEDS ORDERED: *HR* Heparin 5,000 UNIT/ML VIAL IVP ONE (02:42)
[2020-01-07] MEDS ORDERED: Heparin 25,000 UNIT/250 ML D5W 25,000 UNIT/250 ML IV.SOLN IVC SCH (02:45)
[2020-01-07] MEDS ORDERED: Vasopressin 40 UNIT in D5% in Water 100 ML IVC SCH (03:15)
[2020-01-07] MEDS: *HR* HYDROmorphone (PF) 1 MG/ML SYRINGE IVP PRN (04:07)
[2020-01-07 05:33] LABS: Hematocrit 33.8 % (35.3-44.9); Mean Corpuscular HGB Conc 32.2 g/dL (31.6-35.5); Mean Corpuscular Hemoglobin 34.7 pg (28.0-33.3); Mean Corpuscular Volume 107.6 fL (83.0-100.0); Mean Platelet Volume 10.3 fL (9.4-12.4); Nucleated Red Blood Cells 1.2 /100 WBC (0); Platelet Count 300 K/mcL (140-400); Red Blood Count 3.14 M/mcL (3.82-4.97); Red Cell Distribution Width 15.7 % (11.5-14.5)
[2020-01-07 05:34] LABS: Hemoglobin 10.9 g/dL (11.5-15.4); White Blood Count 9.1 K/mcL (4.3-11.1)
[2020-01-07 05:36] LABS: VBG HCO3 20 mEq/L (21-27); VBG PCO2 40 mmHg (41-51); VBG PO2 123 mmHg (25-50)
[2020-01-07] MEDS: Acetaminophen IV 1,000 MG/100 ML INFUS..BTL IVPB SCH ×4 (05:45→23:46)
[2020-01-07] MEDS: Doxycycline 100 MG in 0.9 % Sodium Chloride Mini Bag 100 ML IVPB SCH (05:46)
[2020-01-07 05:54] LABS: Albumin 2.6 g/dL (3.5-5.7); Albumin/Globulin Ratio 1.1 (1.1-2.2); Bilirubin,Total 0.9 mg/dL (0.3-1.0); Calcium 6.2 mg/dL (8.6-10.3); Globulin 2.3 g/dL (2.4-3.5); Magnesium 1.6 mg/dL (1.6-2.6); Total Protein 4.9 g/dL (6.4-8.9)
[2020-01-07 06:03] LABS: Anisocytosis 2+ (Not Present); Lymphocytes # 1.8 K/mcL (0.6-4.6); Macrocytosis Present (Not Present); Monocytes # 0.2 K/mcL (0.0-1.3); Neutrophils # 6.2 K/mcL (1.6-8.9); Platelet Estimate Normal (Normal); Toxic Granulation Present (Not Present); Toxic Vacuolation Present (Not Present)
[2020-01-07] MEDS ORDERED: Isovue-370 500 ML BOTTLE IVP ONE ×2 (07:30→13:53)
[2020-01-07] MEDS ORDERED: Clindamycin 900 MG/50 ML 900 MG/50 ML IV.SOLN IVPB ONE (07:31)
[2020-01-07] MEDS: Pantoprazole 40 MG VIAL IVP SCH (07:35)
[2020-01-07] MEDS: Morphine Sulfate ER (12 HR) 15 MG TABLET.ER PO SCH (07:38)
[2020-01-07] MEDS ORDERED: *HR* HYDROmorphone (PF) 1 MG/ML SYRINGE IVP PRN ×2 (07:44→13:53)
[2020-01-07] MEDS ORDERED: Albumin 25% 25gram/100mL 25 GM/100 ML IV.SOLN IVPB SCH (08:00)
[2020-01-07 08:54] LABS: INR 1.8; Prothrombin Time 20.8 Seconds (9.4-12.1)
[2020-01-07] MEDS ORDERED: Norepinephrine 8 MG in 0.9 % Sodium Chloride 250 ML IVC SCH ×3 (09:00→19:30)
[2020-01-07] MEDS ORDERED: *HR* Propofol 200 MG/20 ML VIAL IVP ONE (10:10)
[2020-01-07] MEDS ORDERED: *HR* FentaNYL (PF) 100 MCG/2 ML VIAL ONE (10:12)
[2020-01-07] MEDS ORDERED: Lidocaine -MPF 2% 2 ML VIAL ONE (10:13)
[2020-01-07] MEDS ORDERED: *HR* Midazolam HCl 2 MG/2 ML VIAL ONE ×2 (10:13→13:12)
[2020-01-07] MEDS ORDERED: Lidocaine HCL 4 ML Topical Solution (Laryng-O-Jet Kit Sterile Pak) TP ONE (10:13)
[2020-01-07] MEDS ORDERED: Ondansetron 4 MG/2 ML VIAL ONE (10:13)
[2020-01-07] MEDS ORDERED: *HR* Rocuronium Bromide 50 MG/5 ML VIAL ONE (10:13)
[2020-01-07] MEDS ORDERED: *HR* Succinylcholine 200 MG/10 ML VIAL IVP ONE (10:13)
[2020-01-07] MEDS ORDERED: EPINEPHrine 1 MG/ML VIAL ONE (10:20)
[2020-01-07] MEDS ORDERED: Heparin 1,000 UNITS/500 mL 500 ML ONE (10:25)
[2020-01-07] MEDS ORDERED: *HR* Vasopressin 20 UNIT/ML VIAL ONE (10:28)
[2020-01-07] MEDS ORDERED: *HR* Norepinephrine 4 MG/4 ML VIAL IVC ONE (10:28)
[2020-01-07] MEDS ORDERED: Albumin Human 5% 25.0 GM/500 ML IV.SOLN ONE (10:28)
[2020-01-07] MEDS ORDERED: 0.9 % Sodium Chloride 1,000 ML ONE (10:41)
[2020-01-07] MEDS ORDERED: *HR* PHENYLEPHRINE 1,000 MCG/10 ML SYRINGE IVP ONE (11:07)
[2020-01-07] MEDS ORDERED: Vancomycin 1,500 MG/265 ML IV.SOLN IVPB SCH (13:00)
[2020-01-07] MEDS ORDERED: Artificial Tears SOLN 15 ML BOTTLE BOTH EYES PRN (13:52)
[2020-01-07] MEDS ORDERED: D5% in Water 1,000 ML IVC PRN ×2 (13:53→18:09)
[2020-01-07] MEDS ORDERED: *HR* Dextrose 50 % in Water (Syg) 50 ML SYRINGE IVP PRN ×2 (13:53→18:09)
[2020-01-07] MEDS ORDERED: *HR* Promethazine 25 MG/ML VIAL IVP PRN (13:53)
[2020-01-07] MEDS: Dexmedetomidine HCl 400 MCG/100 ML MLS IVC SCH ×2 (14:04→19:40)
[2020-01-07] MEDS: FentaNYL (PF) 1,000 MCG/100 ML IV.SOLN IVC SCH (14:38)
[2020-01-07] MEDS: Artificial Tears SOLN 15 ML BOTTLE BOTH EYES SCH ×3 (15:36→23:45)
[2020-01-07] MEDS: Albumin 25% 25gram/100mL 25 GM/100 ML IV.SOLN IVPB SCH ×2 (15:37→23:47)
[2020-01-07 16:38] LABS: VBG HCO3 22 mEq/L (21-27); VBG PCO2 54 mmHg (41-51); VBG PH 7.21 pH Units (7.32-7.42); VBG PO2 126 mmHg (25-50)
[2020-01-07] MEDS: Calcium Gluconate 1gm/50mL 1 GM/50 ML BAG IVPB SCH ×3 (17:05→19:30)
[2020-01-07] MEDS ORDERED: Dextrose Gel 15 GM/37.5 ML TUBE PO PRN ×2 (18:09)
[2020-01-07] MEDS: Vasopressin 40 UNIT in D5% in Water 100 ML IVC SCH (18:34)
[2020-01-07] MEDS: Chlorhexidine Rinse 15 ML MOUTHWASH MM SCH (20:21)
[2020-01-07] MEDS: Latanoprost 2.5 ML BOTTLE BOTH EYES SCH (20:22)
[2020-01-07 23:26] LABS: VBG HCO3 22 mEq/L (21-27); VBG PCO2 53 mmHg (41-51); VBG PH 7.22 pH Units (7.32-7.42); VBG PO2 92 mmHg (25-50)
[2020-01-07] MEDS: Insulin LISPRO 300 UNITS/3 ML VIAL SQ SCH (23:48)
[2020-01-08] MEDS: Dexmedetomidine HCl 400 MCG/100 ML MLS IVC SCH ×4 (02:20→19:30)
[2020-01-08] MEDS: FentaNYL (PF) 1,000 MCG/100 ML IV.SOLN IVC SCH ×2 (02:30→17:42)
[2020-01-08] MEDS: Artificial Tears SOLN 15 ML BOTTLE BOTH EYES SCH ×6 (04:23→23:40)
[2020-01-08 04:25] LABS: Hematocrit 22.6 % (35.3-44.9); Hemoglobin 7.3 g/dL (11.5-15.4); Mean Corpuscular HGB Conc 32.3 g/dL (31.6-35.5); Mean Corpuscular Hemoglobin 35.3 pg (28.0-33.3); Mean Corpuscular Volume 109.2 fL (83.0-100.0); Mean Platelet Volume 10.5 fL (9.4-12.4); Nucleated Red Blood Cells 3.5 /100 WBC (0); Platelet Count 156 K/mcL (140-400); Red Blood Count 2.07 M/mcL (3.82-4.97); Red Cell Distribution Width 15.8 % (11.5-14.5)
[2020-01-08 04:28] LABS: VBG HCO3 22 mEq/L (21-27); VBG PCO2 47 mmHg (41-51); VBG PH 7.28 pH Units (7.32-7.42); VBG PO2 93 mmHg (25-50)
[2020-01-08 04:44] LABS: Albumin/Globulin Ratio 1.6 (1.1-2.2); Bilirubin,Direct 0.6 mg/dL (0.0-0.2); Bilirubin,Indirect 0.4 mg/dL (0.0-1.0); Calcium 6.7 mg/dL (8.6-10.3); Globulin 1.9 g/dL (2.4-3.5); Magnesium 2.3 mg/dL (1.6-2.6); Phosphorous 5.1 mg/dL (2.7-4.5); Potassium 4.5 mEq/L (3.5-5.1); Total Protein 4.9 g/dL (6.4-8.9); Uric Acid 5.2 mg/dL (2.3-7.6)
[2020-01-08 04:55] LABS: Hypochromasia Present (Not Present); Lymphocytes # 0.5 K/mcL (0.6-4.6); Neutrophils # 1.5 K/mcL (1.6-8.9); Platelet Estimate Normal (Normal)
[2020-01-08] MEDS: *HR* Heparin 5,000 UNIT/ML VIAL SQ SCH ×3 (05:51→20:08)
[2020-01-08] MEDS: Insulin LISPRO 300 UNITS/3 ML VIAL SQ SCH ×4 (05:52→23:40)
[2020-01-08] MEDS: Acetaminophen IV 1,000 MG/100 ML INFUS..BTL IVPB SCH ×4 (05:52→23:40)
[2020-01-08 07:50] LABS: ABG Base Excess -6 mEq/L (-2 to 3); ABG HCO3 21 mEq/L (21-27); ABG Oxygen Saturation 88 % (95-98); ABG PCO2 42 mmHg (35-45); ABG PO2 61 mmHg (85-104); ABG TCO2 22 mEq/L (20-26); Blood Gas Modality AF; Blood Gas VT 450 cc
[2020-01-08] MEDS: Albumin 25% 25gram/100mL 25 GM/100 ML IV.SOLN IVPB SCH ×3 (08:23→23:39)
[2020-01-08] MEDS: Chlorhexidine Rinse 15 ML MOUTHWASH MM SCH ×2 (08:23→20:08)
[2020-01-08] MEDS: Pantoprazole 40 MG VIAL IVP SCH (08:23)
[2020-01-08] MEDS: Piperacillin/Tazobactam 3.375 GM in 0.9 % Sodium Chloride Mini Bag 100 ML IVPB SCH ×3 (08:23→23:39)
[2020-01-08 12:37] LABS: Hematocrit 21.6 % (35.3-44.9); Hemoglobin 6.9 g/dL (11.5-15.4); Mean Corpuscular HGB Conc 31.9 g/dL (31.6-35.5); Mean Corpuscular Volume 109.6 fL (83.0-100.0); Mean Platelet Volume 10.3 fL (9.4-12.4); Nucleated Red Blood Cells 2.6 /100 WBC (0); Platelet Count 134 K/mcL (140-400); Red Blood Count 1.97 M/mcL (3.82-4.97); Red Cell Distribution Width 16.2 % (11.5-14.5); White Blood Count 1.9 K/mcL (4.3-11.1)
[2020-01-08] MEDS ORDERED: Fluconazole 400 MG/200 ML 400 MG/200 ML BAG IVPB ONE ×2 (13:05→15:00)
[2020-01-08 13:22] LABS: Lymphocytes # 0.4 K/mcL (0.6-4.6); Monocytes # 0.2 K/mcL (0.0-1.3); Neutrophils # 1.2 K/mcL (1.6-8.9); Platelet Estimate Slight Decrease (Normal)
[2020-01-08 13:42] LABS: INR 1.5; Prothrombin Time 17.4 Seconds (9.4-12.1)
[2020-01-08] MEDS ORDERED: Vancomycin 1 EACH in 0.9 % Sodium Chloride 250 ML IVPB SCH (14:00)
[2020-01-08] MEDS: Vasopressin 40 UNIT in D5% in Water 100 ML IVC SCH (15:13)
[2020-01-08] MEDS: Phenylephrine 50 MG in 0.9 % Sodium Chloride 250 ML IVC SCH (15:13)
[2020-01-08] MEDS ORDERED: 0.9 % Sodium Chloride 250 ML ONE (17:16)
[2020-01-08] MEDS: Norepinephrine 8 MG in 0.9 % Sodium Chloride 250 ML IVC SCH ×2 (17:31→19:25)
[2020-01-08] MEDS: Latanoprost 2.5 ML BOTTLE BOTH EYES SCH (20:09)
[2020-01-09] MEDS: Dexmedetomidine HCl 400 MCG/100 ML MLS IVC SCH ×4 (01:30→20:02)
[2020-01-09] MEDS: Artificial Tears SOLN 15 ML BOTTLE BOTH EYES SCH ×6 (03:46→23:14)
[2020-01-09 04:20] LABS: ABG Base Excess -8 mEq/L (-2 to 3); ABG HCO3 17 mEq/L (21-27); ABG Oxygen Saturation 92 % (95-98); ABG PCO2 35 mmHg (35-45); ABG PO2 70 mmHg (85-104); ABG TCO2 18 mEq/L (20-26); Blood Gas VT 500 cc
[2020-01-09 04:21] LABS: Bilirubin,Urine Negative (Negative); Blood,Urine Large (Negative); Clarity,Urine Turbid (Clear); Color,Urine Dark Yellow (Yellow); Eosinophils # 0.1 K/mcL (0.0-0.6); Glucose,Urine (UA) Normal (Normal); Hematocrit 25.6 % (35.3-44.9); Ketones,Urine Trace mg/dL (Negative); Leukocyte Esterase,Urine Small (Negative); Mean Corpuscular HGB Conc 33.2 g/dL (31.6-35.5); Mean Corpuscular Hemoglobin 33.9 pg (28.0-33.3); Mean Platelet Volume 10.5 fL (9.4-12.4); Nitrite,Urine Negative (Negative); Nucleated Red Blood Cells 2.2 /100 WBC (0); PH,Urine 5.5 pH Units (5.0-8.0); Platelet Count 103 K/mcL (140-400); Protein,Urine 100 mg/dL (Neg-Trace); Red Blood Count 2.51 M/mcL (3.82-4.97); Red Cell Distribution Width 19.6 % (11.5-14.5); Specific Gravity,Urine > 1.030 (1.010-1.025); Urobilinogen,Urine Normal (Normal)
[2020-01-09 04:23] LABS: Hemoglobin 8.5 g/dL (11.5-15.4); White Blood Count 3.2 K/mcL (4.3-11.1)
[2020-01-09 04:24] LABS: Bacteria,Urine None Seen per hpf (None-Few); Squamous Epithelial Cell,Urine Many per lpf (None-Few); WBC,Urine TNTC per hpf (0-3)
[2020-01-09 04:38] LABS: Calcium 6.8 mg/dL (8.6-10.3); Potassium 4.7 mEq/L (3.5-5.1)
[2020-01-09 05:22] LABS: Hyaline Casts,Urine Few per lpf (None-Few); RBC,Urine Present per hpf (0-3); Transitional Epi Cells,Urine Few per hpf (None-Few); Yeast,Urine Many per hpf (None Seen)
[2020-01-09] MEDS: FentaNYL (PF) 1,000 MCG/100 ML IV.SOLN IVC SCH ×2 (05:22→17:00)
[2020-01-09] MEDS: Insulin LISPRO 300 UNITS/3 ML VIAL SQ SCH ×4 (05:27→23:38)
[2020-01-09] MEDS: *HR* Heparin 5,000 UNIT/ML VIAL SQ SCH ×3 (05:29→21:05)
[2020-01-09] MEDS: Acetaminophen IV 1,000 MG/100 ML INFUS..BTL IVPB SCH ×4 (05:29→23:15)
[2020-01-09 05:48] LABS: Phosphorous 6.4 mg/dL (2.7-4.5)
[2020-01-09 05:49] LABS: Hypochromasia Present (Not Present); Lymphocytes # 0.8 K/mcL (0.6-4.6); Monocytes # 0.3 K/mcL (0.0-1.3); Neutrophils # 1.7 K/mcL (1.6-8.9); Toxic Vacuolation Present (Not Present)
[2020-01-09 05:50] LABS: Platelet Estimate Slight Decrease (Normal)
[2020-01-09] MEDS: Calcium Gluconate 1gm/50mL 1 GM/50 ML BAG IVPB PRN (06:35)
[2020-01-09] MEDS: Fluconazole 400 MG/200 ML 400 MG/200 ML BAG IVPB SCH (07:33)
[2020-01-09] MEDS: Albumin 25% 25gram/100mL 25 GM/100 ML IV.SOLN IVPB SCH ×3 (07:33→23:14)
[2020-01-09] MEDS: Chlorhexidine Rinse 15 ML MOUTHWASH MM SCH ×2 (07:33→20:03)
[2020-01-09] MEDS: Pantoprazole 40 MG VIAL IVP SCH (07:33)
[2020-01-09] MEDS ORDERED: *HR* Alteplase (Cathflo) 2 MG VIAL IVP PRN (07:53)
[2020-01-09] MEDS ORDERED: *HR* Heparin 5,000 UNIT/ML VIAL ONE (11:13)
[2020-01-09] MEDS: Piperacillin/Tazobactam 3.375 GM in 0.9 % Sodium Chloride Mini Bag 100 ML IVPB SCH ×2 (11:30→23:13)
[2020-01-09] MEDS: *HR* Heparin 5,000 UNIT/ML VIAL CRRT PRN (12:25)
[2020-01-09 12:28] LABS: Albumin 3.1 g/dL (3.5-5.7); Albumin/Globulin Ratio 1.4 (1.1-2.2); Bilirubin,Direct 0.5 mg/dL (0.0-0.2); Bilirubin,Indirect 0.5 mg/dL (0.0-1.0); Globulin 2.2 g/dL (2.4-3.5); Total Protein 5.3 g/dL (6.4-8.9)
[2020-01-09] MEDS: PrismaSATE BGK 4/2.5 5,000 ML CRRT SCH ×6 (13:10→21:06)
[2020-01-09] MEDS: Vasopressin 40 UNIT in D5% in Water 100 ML IVC SCH (19:29)
[2020-01-09] MEDS: Phenylephrine 50 MG in 0.9 % Sodium Chloride 250 ML IVC SCH (19:29)
[2020-01-09] MEDS: Latanoprost 2.5 ML BOTTLE BOTH EYES SCH (20:03)
[2020-01-10] MEDS: PrismaSATE BGK 4/2.5 5,000 ML CRRT SCH ×14 (01:05→21:26)
[2020-01-10] MEDS: Dexmedetomidine HCl 400 MCG/100 ML MLS IVC SCH ×3 (02:06→21:24)
[2020-01-10] MEDS: Artificial Tears SOLN 15 ML BOTTLE BOTH EYES SCH ×5 (03:35→20:08)
[2020-01-10] MEDS: FentaNYL (PF) 1,000 MCG/100 ML IV.SOLN IVC SCH (03:36)
[2020-01-10] MEDS: Calcium Gluconate 1gm/50mL 1 GM/50 ML BAG IVPB PRN ×3 (04:11→14:58)
[2020-01-10 04:13] LABS: Calcium 7.5 mg/dL (8.6-10.3); Magnesium 2.4 mg/dL (1.6-2.6); Phosphorous 4.9 mg/dL (2.7-4.5); Potassium 4.6 mEq/L (3.5-5.1)
[2020-01-10 04:28] LABS: ABG Base Excess -8 mEq/L (-2 to 3); ABG HCO3 18 mEq/L (21-27); ABG Oxygen Saturation 91 % (95-98); ABG PCO2 38 mmHg (35-45); ABG PO2 67 mmHg (85-104); ABG TCO2 20 mEq/L (20-26); Blood Gas VT 500 cc
[2020-01-10] MEDS: Acetaminophen IV 1,000 MG/100 ML INFUS..BTL IVPB SCH ×3 (05:11→17:20)
[2020-01-10] MEDS: Insulin LISPRO 300 UNITS/3 ML VIAL SQ SCH ×4 (05:13→20:09)
[2020-01-10 05:21] LABS: Hemoglobin 8.2 g/dL (11.5-15.4); Immature Platelets 7.7 % (1.1-6.1); Mean Corpuscular HGB Conc 32.8 g/dL (31.6-35.5); Mean Corpuscular Hemoglobin 33.2 pg (28.0-33.3); Mean Corpuscular Volume 101.2 fL (83.0-100.0); Mean Platelet Volume 11.2 fL (9.4-12.4); Nucleated Red Blood Cells 2.5 /100 WBC (0); Red Blood Count 2.47 M/mcL (3.82-4.97); Red Cell Distribution Width 20.3 % (11.5-14.5); White Blood Count 3.2 K/mcL (4.3-11.1)
[2020-01-10 05:49] LABS: Anisocytosis 1+ (Not Present); Lymphocytes # 0.3 K/mcL (0.6-4.6); Neutrophils # 2.6 K/mcL (1.6-8.9)
[2020-01-10 05:50] LABS: Hypochromasia Present (Not Present); Large Platelets Present (Not Present); Microcytosis Present (Not Present); Toxic Vacuolation Present (Not Present)
[2020-01-10 05:51] LABS: Platelet Estimate Slight Decrease (Normal)
[2020-01-10 05:57] LABS: Mean Platelet Volume 11.5 fL (9.4-12.4)
[2020-01-10] MEDS: *HR* Heparin 5,000 UNIT/ML VIAL SQ SCH ×3 (06:01→21:27)
[2020-01-10] MEDS: Vasopressin 40 UNIT in D5% in Water 100 ML IVC SCH (08:31)
[2020-01-10 08:41] LABS: VBG Ionized Calcium 1.04 mmol/L (1.15-1.35)
[2020-01-10] MEDS: Chlorhexidine Rinse 15 ML MOUTHWASH MM SCH ×2 (08:43→20:09)
[2020-01-10] MEDS: Fluconazole 400 MG/200 ML 400 MG/200 ML BAG IVPB SCH (08:43)
[2020-01-10] MEDS: Albumin 25% 25gram/100mL 25 GM/100 ML IV.SOLN IVPB SCH ×2 (08:44→15:37)
[2020-01-10] MEDS: Pantoprazole 40 MG VIAL IVP SCH (08:44)
[2020-01-10 09:02] LABS: Albumin 3.1 g/dL (3.5-5.7); Albumin/Globulin Ratio 1.6 (1.1-2.2); Bilirubin,Direct 0.4 mg/dL (0.0-0.2); Bilirubin,Indirect 0.5 mg/dL (0.0-1.0); Bilirubin,Total 0.9 mg/dL (0.3-1.0); Total Protein 5.1 g/dL (6.4-8.9)
[2020-01-10] MEDS: Piperacillin/Tazobactam 3.375 GM in 0.9 % Sodium Chloride Mini Bag 100 ML IVPB SCH ×2 (10:25→17:19)
[2020-01-10 10:52] LABS: Mean Platelet Volume 11.8 fL (9.4-12.4)
[2020-01-10] MEDS ORDERED: D10% in Water 500 ML IVC PRN (11:47)
[2020-01-10] MEDS: Norepinephrine 8 MG in 0.9 % Sodium Chloride 250 ML IVC SCH (11:51)
[2020-01-10] MEDS ORDERED: *HR* Dextrose 50 % in Water (Syg) 50 ML SYRINGE IVP PRN (12:12)
[2020-01-10] MEDS ORDERED: Dextrose Gel 15 GM/37.5 ML TUBE PO PRN ×2 (12:12)
[2020-01-10] MEDS ORDERED: D5% in Water 1,000 ML IVC PRN (12:12)
[2020-01-10 14:13] LABS: VBG Ionized Calcium 1.07 mmol/L (1.15-1.35)
[2020-01-10] MEDS ORDERED: Clinimix E 5%-15% SOLUTION 2,000 ML with MVI, adult with vitamin K 10 ML IVC SCH ×2 (17:00)
[2020-01-10 19:26] LABS: VBG Ionized Calcium 1.05 mmol/L (1.15-1.35)
[2020-01-10] MEDS: Vancomycin 1,500 MG/265 ML IV.SOLN IVPB SCH (19:27)
[2020-01-10] MEDS: Latanoprost 2.5 ML BOTTLE BOTH EYES SCH (20:09)
[2020-01-11] MEDS: Acetaminophen IV 1,000 MG/100 ML INFUS..BTL IVPB SCH ×5 (00:16→23:51)
[2020-01-11] MEDS: Artificial Tears SOLN 15 ML BOTTLE BOTH EYES SCH ×7 (00:17→23:50)
[2020-01-11] MEDS: Insulin LISPRO 300 UNITS/3 ML VIAL SQ SCH ×7 (00:17→23:50)
[2020-01-11] MEDS: Albumin 25% 25gram/100mL 25 GM/100 ML IV.SOLN IVPB SCH ×4 (00:17→23:49)
[2020-01-11] MEDS: PrismaSATE BGK 4/2.5 5,000 ML CRRT SCH ×10 (01:27→20:49)
[2020-01-11] MEDS: Piperacillin/Tazobactam 3.375 GM in 0.9 % Sodium Chloride Mini Bag 100 ML IVPB SCH ×3 (02:06→17:33)
[2020-01-11] MEDS: Calcium Gluconate 1gm/50mL 1 GM/50 ML BAG IVPB PRN (03:17)
[2020-01-11 03:26] LABS: Hemoglobin 7.8 g/dL (11.5-15.4)
[2020-01-11 03:26] LABS: VBG Ionized Calcium 1.04 mmol/L (1.15-1.35)
[2020-01-11 03:28] LABS: Eosinophils # 0.1 K/mcL (0.0-0.6); Hematocrit 24.2 % (35.3-44.9); Immature Platelets 9.3 % (1.1-6.1); Mean Corpuscular HGB Conc 32.2 g/dL (31.6-35.5); Mean Corpuscular Hemoglobin 32.6 pg (28.0-33.3); Mean Corpuscular Volume 101.3 fL (83.0-100.0); Mean Platelet Volume 12.3 fL (9.4-12.4); Nucleated Red Blood Cells 1.8 /100 WBC (0); Red Blood Count 2.39 M/mcL (3.82-4.97); Red Cell Distribution Width 19.7 % (11.5-14.5); White Blood Count 2.7 K/mcL (4.3-11.1)
[2020-01-11 03:45] LABS: Albumin 3.3 g/dL (3.5-5.7); Albumin/Globulin Ratio 1.5 (1.1-2.2); Bilirubin,Total 1.1 mg/dL (0.3-1.0); Calcium 7.9 mg/dL (8.6-10.3); Globulin 2.2 g/dL (2.4-3.5); Magnesium 2.3 mg/dL (1.6-2.6); Phosphorous 2.2 mg/dL (2.7-4.5); Total Protein 5.5 g/dL (6.4-8.9)
[2020-01-11 04:06] LABS: Lymphocytes # 0.9 K/mcL (0.6-4.6); Monocytes # 0.2 K/mcL (0.0-1.3); Neutrophils # 1.4 K/mcL (1.6-8.9)
[2020-01-11 04:07] LABS: Platelet Estimate Slight Decrease (Normal); Toxic Vacuolation Present (Not Present)
[2020-01-11 04:08] LABS: Anisocytosis 1+ (Not Present); Hypochromasia Present (Not Present); Reactive Lymphocytes Present (Not Present)
[2020-01-11 04:21] LABS: ABG Base Excess -2 mEq/L (-2 to 3); ABG HCO3 23 mEq/L (21-27); ABG Oxygen Saturation 99 % (95-98); ABG PCO2 42 mmHg (35-45); ABG PH 7.35 pH Units (7.32-7.45); ABG PO2 128 mmHg (85-104); ABG TCO2 25 mEq/L (20-26); Blood Gas Modality ASSIST CONTROL; Blood Gas VT 500 cc
[2020-01-11 04:48] LABS: Mean Platelet Volume 10.7 fL (9.4-12.4)
[2020-01-11] MEDS: Dexmedetomidine HCl 400 MCG/100 ML MLS IVC SCH ×2 (06:01→17:33)
[2020-01-11] MEDS: *HR* Heparin 5,000 UNIT/ML VIAL SQ SCH ×3 (06:01→21:12)
[2020-01-11] MEDS: Chlorhexidine Rinse 15 ML MOUTHWASH MM SCH ×2 (08:21→21:11)
[2020-01-11] MEDS: Fluconazole 400 MG/200 ML 400 MG/200 ML BAG IVPB SCH (08:23)
[2020-01-11] MEDS: Pantoprazole 40 MG VIAL IVP SCH (08:23)
[2020-01-11] MEDS ORDERED: *HR* Rocuronium Bromide 50 MG/5 ML VIAL IVP ONE ×3 (09:04→16:53)
[2020-01-11 09:26] LABS: VBG Ionized Calcium 1.12 mmol/L (1.15-1.35)
[2020-01-11] MEDS: Norepinephrine 8 MG in 0.9 % Sodium Chloride 250 ML IVC SCH (11:28)
[2020-01-11] MEDS ORDERED: *HR* Rocuronium Bromide 50 MG/5 ML VIAL ONE (14:54)
[2020-01-11] MEDS ORDERED: Isovue-370 500 ML BOTTLE IVP ONE (15:05)
[2020-01-11] MEDS: Albumin 25% 25gram/100mL 25 GM/100 ML IV.SOLN IVPB ONE ×2 (16:56→17:32)
[2020-01-11] MEDS ORDERED: Clinimix E 5%-15% SOLUTION 2,000 ML with MVI, adult with vitamin K 10 ML IVC SCH (17:00)
[2020-01-11] MEDS ORDERED: 0.9 % Sodium Chloride 2,000 ML ONE (20:14)
[2020-01-11] MEDS: 0.9 % Sodium Chloride 1,000 ML PRIME SCH (20:50)
[2020-01-11] MEDS: FentaNYL (PF) 1,000 MCG/100 ML IV.SOLN IVC SCH (21:09)
[2020-01-11] MEDS: Latanoprost 2.5 ML BOTTLE BOTH EYES SCH (21:11)
[2020-01-12] MEDS: PrismaSATE BGK 4/2.5 5,000 ML CRRT SCH ×10 (00:50→22:42)
[2020-01-12] MEDS: Norepinephrine 8 MG in 0.9 % Sodium Chloride 250 ML IVC SCH ×2 (01:10→17:26)
[2020-01-12] MEDS: Piperacillin/Tazobactam 3.375 GM in 0.9 % Sodium Chloride Mini Bag 100 ML IVPB SCH ×3 (03:11→17:33)
[2020-01-12] MEDS: Artificial Tears SOLN 15 ML BOTTLE BOTH EYES SCH ×5 (03:12→20:26)
[2020-01-12] MEDS: Insulin LISPRO 300 UNITS/3 ML VIAL SQ SCH ×5 (03:27→20:27)
[2020-01-12 05:13] LABS: ABG Base Excess -1 mEq/L (-2 to 3); ABG HCO3 26 mEq/L (21-27); ABG Oxygen Saturation 98 % (95-98); ABG PCO2 55 mmHg (35-45); ABG PH 7.28 pH Units (7.32-7.45); ABG PO2 123 mmHg (85-104); ABG TCO2 28 mEq/L (20-26); Blood Gas Modality AF; Blood Gas VT 450 cc
[2020-01-12] MEDS: Acetaminophen IV 1,000 MG/100 ML INFUS..BTL IVPB SCH (05:25)
[2020-01-12] MEDS: *HR* Heparin 5,000 UNIT/ML VIAL SQ SCH ×3 (05:25→22:43)
[2020-01-12 05:32] LABS: Mean Corpuscular HGB Conc 31.9 g/dL (31.6-35.5); Mean Corpuscular Hemoglobin 33.2 pg (28.0-33.3)
[2020-01-12 05:34] LABS: Eosinophils # 0.1 K/mcL (0.0-0.6); Hematocrit 22.9 % (35.3-44.9); Hemoglobin 7.3 g/dL (11.5-15.4); Immature Platelets 16.8 % (1.1-6.1); Mean Corpuscular Volume 104.1 fL (83.0-100.0); Mean Platelet Volume 12.9 fL (9.4-12.4); Monocytes # 0.1 K/mcL (0.0-1.3); Nucleated Red Blood Cells 2.1 /100 WBC (0); Red Cell Distribution Width 19.9 % (11.5-14.5); White Blood Count 6.3 K/mcL (4.3-11.1)
[2020-01-12 05:51] LABS: Platelet Count 73 K/mcL (140-400)
[2020-01-12 05:53] LABS: Calcium 8.3 mg/dL (8.6-10.3); Magnesium 2.4 mg/dL (1.6-2.6); Phosphorous 2.3 mg/dL (2.7-4.5); Potassium 3.9 mEq/L (3.5-5.1)
[2020-01-12 06:03] LABS: Anisocytosis 1+ (Not Present); Large Platelets Present (Not Present); Neutrophils # 3.7 K/mcL (1.6-8.9); Platelet Estimate Decreased (Normal)
[2020-01-12 06:04] LABS: Reactive Lymphocytes Present (Not Present)
[2020-01-12] MEDS: Ipratropium/Albuterol Neb 3 ML IH SCH ×5 (07:59→23:02)
[2020-01-12] MEDS: FentaNYL (PF) 1,000 MCG/100 ML IV.SOLN IVC SCH ×2 (08:00→17:28)
[2020-01-12] MEDS: Chlorhexidine Rinse 15 ML MOUTHWASH MM SCH ×2 (08:29→20:27)
[2020-01-12] MEDS: Albumin 25% 25gram/100mL 25 GM/100 ML IV.SOLN IVPB SCH (08:29)
[2020-01-12] MEDS: Pantoprazole 40 MG VIAL IVP SCH (08:29)
[2020-01-12] MEDS: Fluconazole 400 MG/200 ML 400 MG/200 ML BAG IVPB SCH (08:30)
[2020-01-12] MEDS: Micafungin 100 MG in 0.9 % Sodium Chloride Mini Bag 100 ML IVPB SCH (11:20)
[2020-01-12 11:33] LABS: Hematocrit 21.8 % (35.3-44.9); Hemoglobin 7.1 g/dL (11.5-15.4)
[2020-01-12] MEDS: Insulin DETEMIR 100 UNIT/ML X5UNITS SQ SCH ×2 (11:37→20:27)
[2020-01-12] MEDS ORDERED: *HR* Heparin 5,000 UNIT/ML VIAL ONE (14:31)
[2020-01-12] MEDS ORDERED: Clinimix E 5%-15% SOLUTION 2,000 ML with MVI, adult with vitamin K 10 ML IVC SCH (17:00)
[2020-01-12] MEDS: Latanoprost 2.5 ML BOTTLE BOTH EYES SCH (20:27)
[2020-01-13] MEDS: Insulin LISPRO 300 UNITS/3 ML VIAL SQ SCH ×6 (00:22→19:55)
[2020-01-13] MEDS: Artificial Tears SOLN 15 ML BOTTLE BOTH EYES SCH ×6 (00:22→19:55)
[2020-01-13] MEDS: Piperacillin/Tazobactam 3.375 GM in 0.9 % Sodium Chloride Mini Bag 100 ML IVPB SCH ×3 (02:09→18:41)
[2020-01-13] MEDS: PrismaSATE BGK 4/2.5 5,000 ML CRRT SCH ×12 (02:27→22:50)
[2020-01-13] MEDS: Ipratropium/Albuterol Neb 3 ML IH SCH ×5 (03:31→19:44)
[2020-01-13 03:48] LABS: Hematocrit 22.9 % (35.3-44.9); Hemoglobin 7.2 g/dL (11.5-15.4); Mean Corpuscular HGB Conc 31.4 g/dL (31.6-35.5); Mean Platelet Volume 12.5 fL (9.4-12.4); Nucleated Red Blood Cells 5.2 /100 WBC (0); Red Blood Count 2.18 M/mcL (3.82-4.97); Red Cell Distribution Width 20.5 % (11.5-14.5); White Blood Count 6.8 K/mcL (4.3-11.1)
[2020-01-13 03:50] LABS: Platelet Count 62 K/mcL (140-400)
[2020-01-13 03:52] LABS: VBG Ionized Calcium 1.12 mmol/L (1.15-1.35)
[2020-01-13] MEDS: FentaNYL (PF) 1,000 MCG/100 ML IV.SOLN IVC SCH ×3 (04:00→18:39)
[2020-01-13 04:10] LABS: Calcium 8.1 mg/dL (8.6-10.3); Magnesium 2.4 mg/dL (1.6-2.6); Phosphorous 2.8 mg/dL (2.7-4.5); Potassium 3.9 mEq/L (3.5-5.1)
[2020-01-13 04:15] LABS: Dohle Bodies Present (Not Present); Hypochromasia Present (Not Present); Lymphocytes # 1.1 K/mcL (0.6-4.6); Monocytes # 0.4 K/mcL (0.0-1.3); Neutrophils # 5.2 K/mcL (1.6-8.9); Platelet Estimate Decreased (Normal); Toxic Granulation Present (Not Present)
[2020-01-13 04:16] LABS: Anisocytosis 2+ (Not Present)
[2020-01-13 04:38] LABS: ABG Base Excess 1 mEq/L (-2 to 3); ABG HCO3 30 mEq/L (21-27); ABG Oxygen Saturation 98 % (95-98); ABG PCO2 70 mmHg (35-45); ABG PH 7.23 pH Units (7.32-7.45); ABG PO2 117 mmHg (85-104); ABG TCO2 32 mEq/L (20-26); Blood Gas Modality AF; Blood Gas VT 450 cc
[2020-01-13] MEDS: *HR* Heparin 5,000 UNIT/ML VIAL SQ SCH ×3 (05:26→21:46)
[2020-01-13] MEDS ORDERED: Potassium Phosphate 44 MEQ in 0.9 % Sodium Chloride 250 ML IVPB ONE (05:30)
[2020-01-13] MEDS: Chlorhexidine Rinse 15 ML MOUTHWASH MM SCH ×2 (08:16→20:20)
[2020-01-13] MEDS: Pantoprazole 40 MG VIAL IVP SCH (08:17)
[2020-01-13] MEDS: Insulin DETEMIR 100 UNIT/ML X5UNITS SQ SCH ×2 (08:17→20:21)
[2020-01-13] MEDS: Micafungin 100 MG in 0.9 % Sodium Chloride Mini Bag 100 ML IVPB SCH (08:23)
[2020-01-13] MEDS: Norepinephrine 8 MG in 0.9 % Sodium Chloride 250 ML IVC SCH (10:11)
[2020-01-13] MEDS ORDERED: Potassium Phosphate 44 MEQ in 0.9 % Sodium Chloride 250 ML IVPB PRN (14:29)
[2020-01-13] MEDS ORDERED: Clinimix E 5%-15% SOLUTION 2,000 ML with MVI, adult with vitamin K 10 ML IVC SCH (17:00)
[2020-01-13] MEDS: Latanoprost 2.5 ML BOTTLE BOTH EYES SCH (20:21)
[2020-01-14] MEDS: Insulin LISPRO 300 UNITS/3 ML VIAL SQ SCH ×6 (00:15→19:40)
[2020-01-14] MEDS: Artificial Tears SOLN 15 ML BOTTLE BOTH EYES SCH ×6 (00:15→19:35)
[2020-01-14] MEDS: Ipratropium/Albuterol Neb 3 ML IH SCH ×7 (00:18→23:58)
[2020-01-14] MEDS: FentaNYL (PF) 1,000 MCG/100 ML IV.SOLN IVC SCH ×3 (01:29→18:00)
[2020-01-14] MEDS: Piperacillin/Tazobactam 3.375 GM in 0.9 % Sodium Chloride Mini Bag 100 ML IVPB SCH ×3 (02:03→18:11)
[2020-01-14] MEDS: PrismaSATE BGK 4/2.5 5,000 ML CRRT SCH ×10 (02:53→20:37)
[2020-01-14] MEDS: 0.9 % Sodium Chloride 1,000 ML PRIME SCH ×2 (04:01→04:02)
[2020-01-14 04:38] LABS: Hemoglobin 7.6 g/dL (11.5-15.4); Mean Corpuscular Volume 100.8 fL (83.0-100.0)
[2020-01-14 04:40] LABS: Hematocrit 24.2 % (35.3-44.9); Immature Platelets 15.6 % (1.1-6.1); Mean Corpuscular HGB Conc 31.4 g/dL (31.6-35.5); Mean Corpuscular Hemoglobin 31.7 pg (28.0-33.3); Mean Platelet Volume 12.8 fL (9.4-12.4); Nucleated Red Blood Cells 6.4 /100 WBC (0); Red Cell Distribution Width 20.4 % (11.5-14.5); White Blood Count 6.1 K/mcL (4.3-11.1)
[2020-01-14 05:02] LABS: Platelet Count 58 K/mcL (140-400)
[2020-01-14 05:14] LABS: Magnesium 2.3 mg/dL (1.6-2.6); Phosphorous 2.9 mg/dL (2.7-4.5); Potassium 4.3 mEq/L (3.5-5.1)
[2020-01-14] MEDS: *HR* Heparin 5,000 UNIT/ML VIAL SQ SCH ×3 (05:33→22:05)
[2020-01-14 05:50] LABS: Platelet Estimate Decreased (Normal)
[2020-01-14 05:52] LABS: Basophils # 0.2 K/mcL (0.0-0.2); Eosinophils # 0.5 K/mcL (0.0-0.6); Monocytes # 0.4 K/mcL (0.0-1.3); Neutrophils # 2.6 K/mcL (1.6-8.9)
[2020-01-14 05:53] LABS: Toxic Granulation Present (Not Present)
[2020-01-14] MEDS: Dexmedetomidine HCl 400 MCG/100 ML MLS IVC SCH (07:31)
[2020-01-14] MEDS: Insulin DETEMIR 100 UNIT/ML X5UNITS SQ SCH ×2 (07:46→21:16)
[2020-01-14] MEDS: Pantoprazole 40 MG VIAL IVP SCH (07:51)
[2020-01-14] MEDS: Chlorhexidine Rinse 15 ML MOUTHWASH MM SCH ×2 (07:51→19:35)
[2020-01-14] MEDS: Micafungin 100 MG in 0.9 % Sodium Chloride Mini Bag 100 ML IVPB SCH (08:02)
[2020-01-14] MEDS: Norepinephrine 8 MG in 0.9 % Sodium Chloride 250 ML IVC SCH (08:15)
[2020-01-14] MEDS ORDERED: Isovue-370 500 ML BOTTLE IVP ONE ×4 (09:41→09:56)
[2020-01-14] MEDS ORDERED: *HR* Heparin 5,000 UNIT/ML VIAL ONE (10:14)
[2020-01-14] MEDS ORDERED: Clinimix E 5%-15% SOLUTION 2,000 ML, Parenteral Amino Acid 10% 100 ML with MVI, adult ... IVC SCH (17:00)
[2020-01-14] MEDS: Latanoprost 2.5 ML BOTTLE BOTH EYES SCH (20:38)
[2020-01-15] MEDS: Insulin LISPRO 300 UNITS/3 ML VIAL SQ SCH ×7 (00:08→23:36)
[2020-01-15] MEDS: Dexmedetomidine HCl 400 MCG/100 ML MLS IVC SCH ×3 (00:08→19:47)
[2020-01-15] MEDS: Artificial Tears SOLN 15 ML BOTTLE BOTH EYES SCH ×7 (00:08→23:36)
[2020-01-15] MEDS: PrismaSATE BGK 4/2.5 5,000 ML CRRT SCH ×12 (00:40→21:08)
[2020-01-15] MEDS: FentaNYL (PF) 1,000 MCG/100 ML IV.SOLN IVC SCH ×4 (01:05→20:04)
[2020-01-15] MEDS: Piperacillin/Tazobactam 3.375 GM in 0.9 % Sodium Chloride Mini Bag 100 ML IVPB SCH (02:07)
[2020-01-15] MEDS: Ipratropium/Albuterol Neb 3 ML IH SCH ×5 (03:36→20:05)
[2020-01-15 04:46] LABS: Hematocrit 24.6 % (35.3-44.9); Mean Corpuscular Volume 101.2 fL (83.0-100.0); Red Blood Count 2.43 M/mcL (3.82-4.97); Red Cell Distribution Width 20.5 % (11.5-14.5)
[2020-01-15 04:48] LABS: Hemoglobin 7.8 g/dL (11.5-15.4); Immature Platelets 17.6 % (1.1-6.1); Mean Corpuscular HGB Conc 31.7 g/dL (31.6-35.5); Mean Corpuscular Hemoglobin 32.1 pg (28.0-33.3); Mean Platelet Volume 12.4 fL (9.4-12.4); Nucleated Red Blood Cells 6.5 /100 WBC (0); White Blood Count 8.1 K/mcL (4.3-11.1)
[2020-01-15 04:50] LABS: Platelet Count 64 K/mcL (140-400)
[2020-01-15 04:52] LABS: VBG Ionized Calcium 1.17 mmol/L (1.15-1.35)
[2020-01-15 05:06] LABS: Calcium 8.2 mg/dL (8.6-10.3); Magnesium 2.3 mg/dL (1.6-2.6); Phosphorous 2.5 mg/dL (2.7-4.5); Potassium 4.3 mEq/L (3.5-5.1)
[2020-01-15 05:21] LABS: Eosinophils # 0.3 K/mcL (0.0-0.6); Lymphocytes # 2.3 K/mcL (0.6-4.6); Neutrophils # 4.5 K/mcL (1.6-8.9)
[2020-01-15 05:22] LABS: Anisocytosis 2+ (Not Present); Platelet Estimate Decreased (Normal); Polychromasia 1+ (Not Present)
[2020-01-15 05:23] LABS: Dohle Bodies Present (Not Present)
[2020-01-15] MEDS: *HR* Heparin 5,000 UNIT/ML VIAL SQ SCH ×3 (06:07→21:09)
[2020-01-15] MEDS: Micafungin 100 MG in 0.9 % Sodium Chloride Mini Bag 100 ML IVPB SCH (08:22)
[2020-01-15] MEDS: Chlorhexidine Rinse 15 ML MOUTHWASH MM SCH ×2 (08:22→19:52)
[2020-01-15] MEDS: Insulin DETEMIR 100 UNIT/ML X5UNITS SQ SCH ×2 (08:22→19:52)
[2020-01-15] MEDS: Pantoprazole 40 MG VIAL IVP SCH (08:22)
[2020-01-15] MEDS: Norepinephrine 8 MG in 0.9 % Sodium Chloride 250 ML IVC SCH (08:25)
[2020-01-15] MEDS ORDERED: *HR* Heparin 5,000 UNIT/ML VIAL ONE (11:40)
[2020-01-15] MEDS ORDERED: Clinimix E 5%-15% SOLUTION 2,000 ML, Parenteral Amino Acid 10% 100 ML with MVI, adult ... IVC SCH (17:00)
[2020-01-15] MEDS: Meropenem 1,000 MG in 0.9 % Sodium Chloride Mini Bag 100 ML IVPB SCH (17:13)
[2020-01-15] MEDS: Latanoprost 2.5 ML BOTTLE BOTH EYES SCH (19:52)
[2020-01-16] MEDS: Ipratropium/Albuterol Neb 3 ML IH SCH ×7 (00:20→23:10)
[2020-01-16] MEDS: PrismaSATE BGK 4/2.5 5,000 ML CRRT SCH ×8 (01:11→12:05)
[2020-01-16] MEDS: Dexmedetomidine HCl 400 MCG/100 ML MLS IVC SCH ×3 (03:06→18:54)
[2020-01-16] MEDS: Artificial Tears SOLN 15 ML BOTTLE BOTH EYES SCH ×6 (03:07→23:33)
[2020-01-16] MEDS: Insulin LISPRO 300 UNITS/3 ML VIAL SQ SCH ×6 (03:15→23:33)
[2020-01-16 03:18] LABS: Hematocrit 23.3 % (35.3-44.9); Hemoglobin 7.3 g/dL (11.5-15.4); Mean Corpuscular HGB Conc 31.3 g/dL (31.6-35.5); Mean Corpuscular Volume 102.2 fL (83.0-100.0); Red Blood Count 2.28 M/mcL (3.82-4.97)
[2020-01-16 03:20] LABS: Eosinophils # 0.1 K/mcL (0.0-0.6); Immature Platelets 17.4 % (1.1-6.1); Mean Platelet Volume 13.4 fL (9.4-12.4); Monocytes # 0.3 K/mcL (0.0-1.3); Nucleated Red Blood Cells 3.7 /100 WBC (0); Red Cell Distribution Width 20.1 % (11.5-14.5); White Blood Count 5.7 K/mcL (4.3-11.1)
[2020-01-16 03:22] LABS: Platelet Count 49 K/mcL (140-400)
[2020-01-16 03:24] LABS: VBG Ionized Calcium 1.18 mmol/L (1.15-1.35)
[2020-01-16 03:44] LABS: BUN/Creatinine Ratio 15 (6-26); Blood Urea Nitrogen 15 mg/dL (6-20); Calcium 8.5 mg/dL (8.6-10.3); Carbon Dioxide 27 mEq/L (23-29); Chloride 101 mEq/L (98-107); Glucose 187 mg/dL (70-105); Magnesium 2.4 mg/dL (1.6-2.6); Osmolality,Calculated 280 (280-300); Phosphorous 2.6 mg/dL (2.7-4.5); Potassium 4.5 mEq/L (3.5-5.1); Sodium 132 mEq/L (136-145); eGFR For African Americans > 60 (> 60); eGFR For Non-African Americans 57 (> 60)
[2020-01-16 03:51] LABS: Anisocytosis 2+ (Not Present); Basophils # 0.1 K/mcL (0.0-0.2); Lymphocytes # 0.9 K/mcL (0.6-4.6); Neutrophils # 3.5 K/mcL (1.6-8.9); Platelet Estimate Decreased (Normal); Smudge Cells Present (Not Present)
[2020-01-16 03:52] LABS: Macrocytosis Present (Not Present); Polychromasia 1+ (Not Present); Toxic Granulation Present (Not Present)
[2020-01-16] MEDS ORDERED: Aminoglycoside Consult 1 EACH MC ONE (04:00)
[2020-01-16] MEDS: *HR* Heparin 5,000 UNIT/ML VIAL SQ SCH ×4 (04:10→20:55)
[2020-01-16] MEDS: FentaNYL (PF) 2,500 MCG/50 ML IV.SOLN IVC SCH ×2 (04:10→20:49)
[2020-01-16 04:45] LABS: ABG Base Excess 1 mEq/L (-2 to 3); ABG HCO3 27 mEq/L (21-27); ABG Oxygen Saturation 99 % (95-98); ABG PCO2 44 mmHg (35-45); ABG PH 7.39 pH Units (7.32-7.45); ABG PO2 162 mmHg (85-104); ABG TCO2 28 mEq/L (20-26); Blood Gas Modality AF; Blood Gas VT 450 cc
[2020-01-16] MEDS: Meropenem 1,000 MG in 0.9 % Sodium Chloride Mini Bag 100 ML IVPB SCH ×2 (05:19→17:04)
[2020-01-16] MEDS: Chlorhexidine Rinse 15 ML MOUTHWASH MM SCH ×2 (08:01→20:50)
[2020-01-16] MEDS: Insulin DETEMIR 100 UNIT/ML X5UNITS SQ SCH ×2 (08:01→20:50)
[2020-01-16] MEDS: Micafungin 100 MG in 0.9 % Sodium Chloride Mini Bag 100 ML IVPB SCH (08:01)
[2020-01-16] MEDS: Pantoprazole 40 MG VIAL IVP SCH (08:02)
[2020-01-16] MEDS: Norepinephrine 8 MG in 0.9 % Sodium Chloride 250 ML IVC SCH (08:02)
[2020-01-16] MEDS: *HR* Heparin 5,000 UNIT/ML VIAL CRRT PRN (14:28)
[2020-01-16] MEDS ORDERED: Clinimix E 5%-15% SOLUTION 2,000 ML, Parenteral Amino Acid 10% 100 ML with MVI, adult ... IVC SCH (17:00)
[2020-01-16] MEDS: Latanoprost 2.5 ML BOTTLE BOTH EYES SCH (20:50)
[2020-01-17] MEDS: Dexmedetomidine HCl 400 MCG/100 ML MLS IVC SCH ×3 (02:23→08:30)
[2020-01-17] MEDS: Ipratropium/Albuterol Neb 3 ML IH SCH ×2 (03:24→07:29)
[2020-01-17] MEDS: Artificial Tears SOLN 15 ML BOTTLE BOTH EYES SCH ×2 (03:48→09:10)
[2020-01-17] MEDS: Insulin LISPRO 300 UNITS/3 ML VIAL SQ SCH ×2 (03:48→09:11)
[2020-01-17 04:10] LABS: Hemoglobin 6.9 g/dL (11.5-15.4); Red Cell Distribution Width 19.9 % (11.5-14.5)
[2020-01-17 04:12] LABS: VBG Ionized Calcium 1.17 mmol/L (1.15-1.35)
[2020-01-17 04:12] LABS: Immature Platelets 19.2 % (1.1-6.1); Mean Corpuscular HGB Conc 32.9 g/dL (31.6-35.5); Mean Corpuscular Hemoglobin 32.9 pg (28.0-33.3); Nucleated Red Blood Cells 9.4 /100 WBC (0); White Blood Count 8.8 K/mcL (4.3-11.1)
[2020-01-17 04:13] LABS: Platelet Count 48 K/mcL (140-400)
[2020-01-17 04:28] LABS: Albumin 2.5 g/dL (3.5-5.7); Albumin/Globulin Ratio 0.7 (1.1-2.2); Bilirubin,Total 0.7 mg/dL (0.3-1.0); Calcium 8.4 mg/dL (8.6-10.3); Globulin 3.6 g/dL (2.4-3.5); Magnesium 2.3 mg/dL (1.6-2.6); Phosphorous 4.8 mg/dL (2.7-4.5); Potassium 5.6 mEq/L (3.5-5.1); Total Protein 6.1 g/dL (6.4-8.9)
[2020-01-17] MEDS: *HR* Heparin 5,000 UNIT/ML VIAL SQ SCH (04:45)
[2020-01-17 04:46] LABS: ABG Base Excess 1 mEq/L (-2 to 3); ABG HCO3 26 mEq/L (21-27); ABG Oxygen Saturation 97 % (95-98); ABG PCO2 39 mmHg (35-45); ABG PH 7.43 pH Units (7.32-7.45); ABG PO2 92 mmHg (85-104); ABG TCO2 27 mEq/L (20-26); Blood Gas Modality AF; Blood Gas VT 450 cc
[2020-01-17 04:54] LABS: Basophils # 0.4 K/mcL (0.0-0.2); Eosinophils # 0.2 K/mcL (0.0-0.6); Lymphocytes # 2.1 K/mcL (0.6-4.6); Monocytes # 0.5 K/mcL (0.0-1.3); Neutrophils # 4.8 K/mcL (1.6-8.9)
[2020-01-17 04:55] LABS: Macrocytosis Present (Not Present); Platelet Estimate Decreased (Normal); Polychromasia 1+ (Not Present); Toxic Granulation Present (Not Present)
[2020-01-17] MEDS: Meropenem 1,000 MG in 0.9 % Sodium Chloride Mini Bag 100 ML IVPB SCH (05:01)
[2020-01-17] MEDS: Insulin DETEMIR 100 UNIT/ML X5UNITS SQ SCH (09:09)
[2020-01-17] MEDS: Chlorhexidine Rinse 15 ML MOUTHWASH MM SCH (09:09)
[2020-01-17] MEDS: Pantoprazole 40 MG VIAL IVP SCH (09:09)
[2020-01-17] MEDS: Micafungin 100 MG in 0.9 % Sodium Chloride Mini Bag 100 ML IVPB SCH (09:09)
[2020-01-17] MEDS ORDERED: *HR* FentaNYL (PF) 100 MCG/2 ML VIAL IVP PRN ×2 (10:12→12:08)
[2020-01-17] MEDS ORDERED: Haloperidol Lactate 5 MG/ML VIAL IVP PRN ×2 (10:13→16:46)
[2020-01-17] MEDS ORDERED: *HR* LORazepam 2 MG/ML VIAL IVP PRN (10:13)
[2020-01-17] MEDS ORDERED: Clinimix E 5%-15% SOLUTION 2,000 ML, Parenteral Amino Acid 10% 100 ML with MVI, adult ... IVC SCH (10:27)
[2020-01-17] MEDS: Atropine Sulfate 1% 40 DROP/2 ML BOTTLE SL PRN ×4 (12:05→19:54)
[2020-01-17] MEDS ORDERED: Scopolamine Patch 1.5 MG PATCH.TD72 TD SCH (12:15)
[2020-01-17] MEDS ORDERED: *HR* FentaNYL (PF) 100 MCG/2 ML VIAL IVP ONE (12:57)
[2020-01-17] MEDS ORDERED: Glycopyrrolate 0.2 MG/ML VIAL IVP ONE (12:58)
[2020-01-17] MEDS: FentaNYL (PF) 2,500 MCG/50 ML IV.SOLN IVC SCH (13:18)
[2020-01-17] MEDS: *HR* LORazepam 2 MG/ML VIAL IVP PRN ×4 (13:42→20:24)
[2020-01-17] MEDS: *HR* FentaNYL (PF) 100 MCG/2 ML VIAL IVP PRN ×8 (14:08→21:33)
[2020-01-17] MEDS ORDERED: FentaNYL (PF) 2,500 MCG/50 ML IV.SOLN IVC SCH (16:46)
[2020-01-17 20:02] VITALS: BP 150/71
[2020-01-20] MEDS ORDERED: Scopolamine Patch 1.5 MG PATCH.TD72 TD SCH (12:15)
== END 2020-01-17 21:42 | disposition expired | DRG 710 ==
LOC: EMEROOARM 16:24 → 2NENU 16:24 → SUATTDRO 01-01 11:54 → 2ANU 01-01 12:59 → ICNU 01-06 21:29 → 2ANU 01-17 16:39
PROVIDERS: ADMIT Internal Medicine; ATTEND Student in an Organized Health Care Education/Training Program